=== PATIENT | male | born 1960 | race Caucasian/White ===

== ENCOUNTER → 2016-03-25 | Outpatient (CLI) | payer OTHER ==
[~2016-03-25] MED LIST: ACET-749 PO; BND25 PO; CITRATE OF MAGNESIA; CLOT10TR2 MT; DIPH1TAB PO; DIPH50TA10 PO; DRGTP100 TOP; DULO-24 PO; DULO60CA44 PO; EPOE10003 INJ; EPOE10003 SC; FERR1TAB13 PO; FERR325T5 PO; FLV1 PO; FNTTP50 TD; FOLI1TAB7 PO; FRRS300 PO; HYDR1LOT6 TOP; IBUP-1459 PO; LACT10SO17 PO; LIDO2SOL19 MT; LIDO2SOL19 TOP; LITH150C PO; LITH150C6 PO; LORA-741 PO; MAGIC MOUTH WASH PO; MIRT30TA2 PO; MIRT45TA PO; MIRT45TA3 PO; MORP30TA PO; NEOMOIN76 TOP; NSPO TOP; NUTR-706 PO; NUTR-977 PO; OMEP20TA PO; OMEP40CA PO; ONDA4TAB46 PO; OXYC-106 PO; PRLSR20 PO; RIFA550T2 PO; RISP1TAB3 PO; RISP3TAB11 PO; SERT-234 PO; TRAM-10 PO; [UNRECOGNIZED DRUG - CODE] PO; [UNRECOGNIZED DRUG - CODE] TOP
--- NOTE | 2016-03-26 18:58 | DIAGNOSTIC IMAGING REPORT ---
PET/CT CLINICAL HISTORY: Head and neck cancer. PET/CT for initial staging. TECHNIQUE: A PET/CT was performed from the skull base through the upper thighs following intravenous injection of 13.98 mCi of F 18 FDG IV. The injection was performed at 8:04 AM on March 25, 2016 and imaging began at 9:28 AM on March 25, 2016. Unenhanced CT was performed for attenuation correction purposes and anatomic localization. CT DOSE: 144.62 mGycm COMPARISON STUDY: MRI of the neck and head February 16, 2016. FINDINGS: Head and neck: A large right tonsillar mass centered within the palatine tonsils is noted on the unenhanced images. Exact measurements are difficult to obtain but this mass measures approximately 4.5 x 3 cm and has increased in size since MRI February 16, 2016. This has marked FDG uptake within SUV max of 10.3. This mass extends into the parapharyngeal soft tissues. A 1.6 cm right level 5 lymph node shown on image 55 has moderate FDG uptake within SUV max of 2.7. There is mild FDG uptake within a nonenlarged right level 2 lymph node shown on image 61. This node measures 7 mm in size and has an SUV max of 1.2. There is mild FDG uptake within a mildly enlarged right level 1 lymph node shown on image 67. This node measures 1.7 x 0.7 cm and has an SUV max of 1. There is mild FDG uptake within a nonenlarged right level 3 lymph node shown on image 77 with an SUV max of 1.4. There is minimal FDG uptake within several nonenlarged left-sided cervical lymph nodes. No enlarged left-sided cervical lymph nodes are identified. Chest: No suspicious FDG uptake is identified within the chest. No thoracic lymphadenopathy is present. The heart is mildly enlarged. No suspicious pulmonary nodules are present. Abdomen and Pelvis: No suspicious FDG uptake is identified within the abdomen or pelvis. There is no abdominal or pelvic lymphadenopathy. The liver is cirrhotic. The sensitivity for detection of hepatic lesions is diminished on this unenhanced exam. The spleen is moderately enlarged. There are multiple abdominal varices. There is a small amount of ascites. There are small gallstones within the gallbladder. There is colonic diverticulosis without evidence for acute diverticulitis. Musculoskeletal: No suspicious skeletal lesions are identified. IMPRESSION: 1. Marked FDG uptake within the right tonsillar mass consistent with head and neck primary. This mass has increased in size since MRI of February 16, 2016 although measurements are difficult to obtain on this unenhanced exam. 1.6 cm right upper level 5 FDG avid lymph node represents bowen spread of disease. Mild FDG uptake within nonenlarged right level 1, 2 and 3 lymph nodes is also suspicious for bowen spread of disease, as described above. 2. Minimal FDG uptake within several nonenlarged left-sided cervical lymph nodes. No convincing evidence for contralateral bowen spread of disease. No distant FDG avid metastases. 3. Cirrhosis with manifestations of portal hypertension including splenomegaly and varices formation with small amount of ascites. Electronically signed by: Mateo Chen M.D. 03/26/2016 6:56 PM Dictated Date/Time: 03/25/2016 10:59 AM
== END ==
LOC: C.PET 07:30
PROVIDERS: ATTEND Family Medicine
DX: C11.9 Malignant neoplasm of nasopharynx, unspecified (principal); D63.8 Anemia in other chronic diseases classified elsewhere; F10.20 Alcohol dependence, uncomplicated; F31.9 Bipolar disorder, unspecified; J35.9 Chronic disease of tonsils and adenoids, unspecified; K62.5 Hemorrhage of anus and rectum; M54.5 Low back pain; Z79.899 Other long term (current) drug therapy

== ENCOUNTER 2016-04-15 22:46 | Inpatient (IN) | payer OTHER ==
[~2016-04-15] VITALS: Ht 182.9 cm; Wt 81.1 kg
[~2016-04-15 22:46] MED LIST changes: -BND25 PO; -CITRATE OF MAGNESIA; -CLOT10TR2 MT; -DIPH50TA10 PO; -DRGTP100 TOP; -DULO-24 PO; -DULO60CA44 PO; -EPOE10003 INJ; -EPOE10003 SC; -FERR1TAB13 PO; -FERR325T5 PO; -FLV1 PO; -FNTTP50 TD; -FOLI1TAB7 PO; -FRRS300 PO; -HYDR1LOT6 TOP; -LACT10SO17 PO; -LIDO2SOL19 MT; -LIDO2SOL19 TOP; -LITH150C PO; -LORA-741 PO; -MAGIC MOUTH WASH PO; -MIRT30TA2 PO; -MIRT45TA PO; -MIRT45TA3 PO; -MORP30TA PO; -NEOMOIN76 TOP; -NSPO TOP; -NUTR-706 PO; -NUTR-977 PO; -OMEP20TA PO; -ONDA4TAB46 PO; -OXYC-106 PO; -PRLSR20 PO; -RIFA550T2 PO; -RISP1TAB3 PO; -[UNRECOGNIZED DRUG - CODE] PO; -[UNRECOGNIZED DRUG - CODE] TOP
--- NOTE | 2016-04-15 23:05 | EMERGENCY ROOM VISIT NOTE ---
History Report prepared by Nasir: Andie Cheema Under the Supervision of: Dr. Arturo Zavala M.D. 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 HPI is limited due to AMS. The patient's network security officer states that the patient has had several falls over the past week which caused him to have a cut on his face. The patient admits to having throat pain currently but denies any chest pain or abdominal pain. The patient states that he is currently receiving chemotherapy for his throat cancer. Source of History: patient, other (network security officer) History Limited By: AMS Onset: one week MECHANICAL ENGINEERING TECHNOLOGIST Position: other (global) Timing: other (recurrent) Associated Symptoms: No abdominal pain, No chest pain Note: Associated symptoms: throat pain. Review of Systems See HPI for pertinent positives & negatives. A total of 10 systems reviewed and were otherwise negative. Past Medical & Surgical Medical Problems: (1) Acute kidney failure (2) Altered mental status (3) Altered mental status (4) Mouth cancer (5) Oral cancer Family History Patient reports no known family medical history. Social History Smoking Status: Unknown if Ever Smoked Marital Status: single Housing Status: other (alf) Occupation Status: other (alf) Current/Historical Medications Scheduled Diphenhydramine Hcl (Sleep) (Diphenhydramine Hcl), 100 MG PO HS Duloxetine HCl (Cymbalta), 60 MG PO DAILY Enteral Nutrition Formula (Ensure Plus Vanilla), 1 CAN PO TID [place] Carbonate ([place] Carbonate), 150 MG PO BID [place] Carbonate ([place] Carbonate), 300 MG PO HS Omeprazole Magnesium (Prilosec), 2 GM PO BID Risperidone (Risperdal), 3 MG PO HS Scheduled PRN Acetaminophen/Codeine (Tylenol W/Codeine #3), 2 TAB PO Q6 PRN for Pain [Magic Mouth Wash], 10 ML PO QID PRN for UNDECIDED Allergies Coded Allergies: Morphine and Related (Verified Allergy, Unknown, UNKNOWN, 04/16/16) Physical Exam Vital Signs Date Time Temp Pulse Resp B/P Pulse Ox O2 Delivery O2 Flow Rate FiO2 04/16/16 01:28 111/64 98 Nasal Cannula 2.0 04/16/16 01:16 86 13 04/16/16 00:58 108/65 04/16/16 00:46 91 16 04/16/16 00:28 101/62 04/16/16 00:22 103 18 112/61 100 Room Air 04/16/16 00:16 118 20 04/16/16 00:07 112/61 04/15/16 23:46 99 11 04/15/16 23:16 96 15 04/15/16 23:01 105 04/15/16 22:51 94 Nasal Cannula 2.0 04/15/16 22:51 37.0 96 20 92/58 89 Room Air 04/15/16 22:48 92/58 Physical Exam GENERAL: Patient is nonverbal in minimal distress, confused appearing. HEENT: No acute trauma, normocephalic atraumatic, mucous membranes moist, no nasal congestion, no scleral icterus. Mild jaundice conjunctiva. Healing laceration of left eyebrow. NECK: No stridor, no adenopathy, no meningismus, trachea is midline. LUNGS: Crackles bilaterally in lower lung field. HEART: Regular rate and rhythm. No murmurs, rubs, gallops appreciated. ABDOMEN: Soft, nontender, bowel sounds positive, no masses appreciated, no peritonitis. BACK: No midline tenderness, no CVA tenderness EXTREMITIES: Normal motion all extremities, no cyanosis, no edema. NEUROLOGIC: Mildly confused, answers periodically yes to questions. He has periodic jerking movements and tremors. no acute motor or sensory deficits, no focal weakness, cranial nerves grossly intact. SKIN: No rash, no jaundice, no diaphoresis. Medical Decision & Procedures ER Provider Diagnostic Interpretation: X ray results are stated below per my interpretation: Chest: 1 view: No infiltrate, no effusion, normal cardiac border. CT results as stated below per interpretation by me and the radiologist: CT results as stated below per interpretation by me and the radiologist: Preliminary Findings Only-- See Final Report for Complete Findings CT HEAD: No acute intracranial hemorrhage. No evidence of intracranial mas, extra-axial fluid collection, or hydrocephalus. Global cerebral volume loss is prominent for patient's age. Mild mucosal thickening and inferior aspect of right maxillary sinus. Radiologist: Arturo Will MD Study ready at 0011 and initial results transmitted at 0019 Laboratory Results Test 04/15/16 23:34 04/15/16 23:37 04/16/16 00:00 04/16/16 00:17 RDW Standard Deviation 53.3 fL (36.4-46.3) RDW Coefficient of Variation 16.7 % (11.5-14.5) White Blood Count 6.06 K/uL (4.8-10.8) Red Blood Count 3.41 M/uL (4.7-6.1) Hemoglobin 9.9 g/dL (14.0-18.0) Hematocrit 29.5 % (42-52) Mean Corpuscular Volume 86.5 fL (80-100) Mean Corpuscular Hemoglobin 29.0 pg (25-34) Mean Corpuscular Hemoglobin Concent 33.6 g/dl (32-36) Platelet Count 70 K/uL (130-400) Mean Platelet Volume 11.0 fL (7.4-10.4) Neutrophils (%) (Auto) 86.4 % Lymphocytes (%) (Auto) 10.1 % Monocytes (%) (Auto) 2.5 % Eosinophils (%) (Auto) 0.3 % Basophils (%) (Auto) 0.2 % Neutrophils # (Auto) 5.24 K/uL (1.4-6.5) Lymphocytes # (Auto) 0.61 K/uL (1.2-3.4) Monocytes # (Auto) 0.15 K/uL (0.11-0.59) Eosinophils # (Auto) 0.02 K/uL (0-0.5) Basophils # (Auto) 0.01 K/uL (0-0.2) Immature Granulocyte % (Auto) 0.5 % Immature Granulocyte # (Auto) 0.03 K/uL (0.00-0.02) Platelet Estimate DECREASED Tear Drop Cells 1+ Ovalocytes 1+ Echinocytes 1+ Prothrombin Time 12.5 SECONDS (9.0-12.0) Prothromb Time International Ratio 1.2 (0.9-1.1) Activated Partial Thromboplast Time 27.1 SECONDS (21.0-31.0) Partial Thromboplastin Ratio 1.0 Direct Bilirubin 1.8 mg/dl (0-0.2) Ammonia 24.0 umol/L (11-32) Troponin I < 0.015 ng/ml (0-0.045) Bedside Lactic Acid Venous 1.23 mmol/L (0.90-1.70) Influenza Type A Antigen Neg for Influ A (NEG) Influenza Type B Antigen Neg for Influ B (NEG) Urine Color DK YELLOW Urine Appearance CLOUDY (CLEAR) Urine pH 5.0 (4.5-7.5) Urine Specific [place] 1.011 (1.000-1.030) Urine Protein TRACE (NEG) Urine Glucose (UA) NEG (NEG) Urine Ketones TRACE (NEG) Urine Occult Blood NEG (NEG) Urine Nitrite NEG (NEG) Urine Bilirubin NEG (NEG) Urine Urobilinogen NEG (NEG) Urine Leukocyte Esterase NEG (NEG) Urine WBC (Auto) 1-5 /hpf (0-5) Urine RBC (Auto) 5-10 /hpf (0-4) Urine Hyaline Casts (Auto) 1-5 /lpf (0-5) Urine Epithelial Cells (Auto) 10-20 /lpf (0-5) Urine Bacteria (Auto) NEG (NEG) Laboratory results as reviewed by me. Medications Administered Medications (Trade) Dose Ordered Sig/Ivan Route Start Time Stop Time Status Last Admin Dose Admin Sodium Chloride (Nss 500ml) 500 ml @ 999 mls/hr Q31M STAT IV 04/16/16 00:21 04/16/16 00:51 DC 04/16/16 00:30 999 MLS/HR ECG Indication: other (fall ) Rate (beats per minute): 93 Rhythm: normal sinus Findings: no acute ischemic change, no ectopy ED Course 2258: The patient was evaluated in room A11B. A complete history and physical exam was performed. 0017:I discussed the case with Dr. Crook [facility] Hospitalist. He agreed to evaluate the patient for further management and care. 0021: Ordered Sodium Chloride 500 ml @ 999 mls/hr. Medical Decision Differential: Toxicological, Infectious, Stroke, SAH, Trauma, Electrolyte Abnormality, Hypoglycemia, Alcohol Intoxication, Drug Intoxication, Cardiac Abnormality, Sepsis, Meningitis/Encephalitis, Trauma, Excited Delirium, Serotonin Syndrome, Psychiatric, amongst other pathologies entertained. 55 yr old male arrives dehydrated mildly confused and hypotensive. Fluids with improvement in BP. No evidence of overt sepsis. He is in acute renal failure suspect secondary to lack of PO intake with cancer. Bili has been slowly increasing as well though no significant TTP on exam at this time. Ammonia OK though would suspect metabolic encephalopathy from renal failure. Does not examine like meningitis. CT head is negative. Unlikely drug/etoh related. Will bring in for further work-up and evaluation. Consults Time Called: 14 Consulting Physician: Dr. Armaan MALDONADO Hospitalist Returned Call: 16 I discussed the case with Dr. Armaan MALDONADO Hospitalist. He agreed to evaluate the patient for further management and care. Impression Primary Impression: Acute renal failure Additional Impressions: Metabolic encephalopathy Dehydration Scribe Attestation The scribe's documentation has been prepared under my direction and personally reviewed by me in its entirety. I confirm that the note above accurately reflects all work, treatment, procedures, and medical decision making performed by me. Departure Information Dispostion Being Evaluated By Hospitalist Referrals Giovanny VILLA (PCP) Problem Qualifiers Primary Impression: Acute renal failure Acute renal failure type: unspecified Qualified Codes: N17.9 - Acute kidney failure, unspecified
[2016-04-15 23:41] LABS: HEMATOCRIT 29.5 % (42-52); MEAN CELL VOLUME 86.5 fL (80-100); MEAN CORPUSCULAR HGB CONC 33.6 g/dl (32-36); RED BLOOD COUNT 3.41 M/uL (4.7-6.1); WHITE BLOOD COUNT 6.06 K/uL (4.8-10.8)
[2016-04-16] VITALS (7 sets, daily range): BP systolic 110–137; BP diastolic 65–75; PULSE 98–130; TEMP 36.6–37.1; O2SAT 92–96; BMI 24.7; BMI 24.0
[2016-04-16] LABS: ALT/SGPT 14 U/L (12-78); AST/SGOT 17 U/L (15-37); BLOOD UREA NITROGEN 60 mg/dl (7-18); BUN/CREATININE RATIO 15.5 (10-20); CALCIUM 10.3 mg/dl (8.5-10.1); CARBON DIOXIDE 29 mmol/L (21-32); CHLORIDE 102 mmol/L (98-107); GLUCOSE 77 mg/dl (70-99); POTASSIUM 3.5 mmol/L (3.5-5.1); SODIUM 140 mmol/L (136-145)
[2016-04-16 00:04] LABS: ALKALINE PHOSPHATASE 96 U/L (45-117)
[2016-04-16 00:11] LABS: INR 1.2 (0.9-1.1); PROTHROMBIN TIME (PATIENT) 12.5 SECONDS (9.0-12.0)
[2016-04-16] MEDS ORDERED: LITH150C PO (00:21)
[2016-04-16] MEDS ORDERED: SODIUM CHLORIDE 0.9% 500ML 500 ML IV STA (00:21)
[2016-04-16] MEDS ORDERED: DULO-24 PO (00:23)
[2016-04-16] MEDS ORDERED: DIPH50TA10 PO (00:24)
[2016-04-16] MEDS ORDERED: [UNRECOGNIZED DRUG - CODE] PO (00:26)
[2016-04-16 00:27] LABS: BASO % 0.2 %; BASO ABS # 0.01 K/uL (0-0.2); COMPLETE YES; ECHINOCYTES 1+; EOS % 0.3 %; IG% 0.5 %; LYMPH % 10.1 %; LYMPH ABS # 0.61 K/uL (1.2-3.4); MONO % 2.5 %; NEUT % 86.4 %; OVALOCYTES 1+; PLATELET COUNT 70 K/uL (130-400); PLT ESTIMATE DECREASED; TEAR DROP CELLS 1+
[2016-04-16] MEDS ORDERED: ACET-749 PO (00:27)
[2016-04-16] MEDS ORDERED: NUTR-977 PO (00:27)
[2016-04-16] MEDS ORDERED: MAGIC MOUTH WASH PO (00:29)
[2016-04-16 00:52] LABS: URINE APPEARANCE CLOUDY (CLEAR); URINE COLOR DK YELLOW; URINE NITRITE NEG (NEG); URINE SPECIFIC GRAVITY 1.011 (1.000-1.030); UROBILINOGEN NEG (NEG); ZZURINE CULT IF INDIC CATH NO
[2016-04-16 01:15] LABS: MANUAL MICROSCOPIC REQUIRED? NO; REVIEW REQ? NO; URINE BILIRUBIN NEG (NEG)
[2016-04-16] MEDS ORDERED: ONDANSETRON INJ 2 MG/ML 2 ML VIAL IV PRN (01:30)
[2016-04-16] MEDS ORDERED: MAGNESIUM HYDROXIDE SUSP 30 ML UDC PO PRN (01:30)
[2016-04-16] MEDS ORDERED: ALUMINUM/MAGNESIUM/SIMETH (MAALOX MAX) 30 ML UDC PO PRN (01:30)
[2016-04-16] MEDS ORDERED: POLYETHYLENE (MIRALAX) 17 GM PACK PO PRN (01:30)
--- NOTE | 2016-04-16 01:59 | History and Physical ---
History & Physical Date & Time of Service: Apr 16, 2016 at 01:34 Chief Complaint: Fall, Hypotension, Ams Primary Care Physician: Giovanny VILLA History of Present Illness Source: patient, other (guards) Mr. Leiva presents today to the emergency department for altered mental status. He is unable to provide a cogent history. He is accompanied by to the guards from [facility] Giovanny. Patient is unable to provide a description of his symptoms at this time. Presently denies being in any pain. He cannot specify whether is he is had any specific symptoms that led him to be brought in to the emergency room. Records that accompany the patient noted that he had 3 falls within the past week, has had altered mental status, has been nonverbal, and has had low blood pressure. Blood sugar was checked at the facility was 88. 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 Regarding his current mental status, the guards were told prior to arrival that this is apparently close to the patient's baseline. The concern of the facility was primarily that he had numerous falls in the past week and wanted him evaluated for this. Past Medical/Surgical History Obtained from records that accompanied the patient on arrival to the emergency department: - GERD - Throat cancer - Anemia - Psychiatric medical conditions otherwise unspecified as deduced from the patient's list of medications Family History Patient reports no known family medical history. Cannot not be obtained from the patient given his current mental status Social History Smoking Status: Unknown if Ever Smoked Smokeless Tobacco Use: Unknown Alcohol Use: unknown Drug Use: other (unknown) Marital Status: single Housing status: other ([facility]) Occupational Status: other (senior living) Allergies Coded Allergies: Morphine and Related (Verified Allergy, Unknown, UNKNOWN, 04/16/16) Home Medications Scheduled Diphenhydramine Hcl (Sleep) (Diphenhydramine Hcl), 100 MG PO HS Duloxetine HCl (Cymbalta), 60 MG PO DAILY Enteral Nutrition Formula (Ensure Plus Vanilla), 1 CAN PO TID [place] Carbonate ([place] Carbonate), 150 MG PO BID [place] Carbonate ([place] Carbonate), 300 MG PO HS Omeprazole Magnesium (Prilosec), 2 GM PO BID Risperidone (Risperdal), 3 MG PO HS Scheduled PRN Acetaminophen/Codeine (Tylenol W/Codeine #3), 2 TAB PO Q6 PRN for Pain [Magic Mouth Wash], 10 ML PO QID PRN for UNDECIDED Review of Systems A complete review of systems could not be obtained given the patient's altered mental status and nonverbal state Physical Exam Vital Signs Date Time Temp Pulse Resp B/P Pulse Ox O2 Delivery O2 Flow Rate FiO2 04/16/16 00:22 103 18 112/61 100 Room Air 04/15/16 23:01 105 04/15/16 22:51 94 Nasal Cannula 2.0 04/15/16 22:51 37.0 96 20 92/58 89 Room Air General Appearance: WD/WN, no apparent distress Head: normocephalic, atraumatic Eyes: normal inspection, PERRL, Patient does not follow diffuse to follow finger with his eyes ENT: Tympanic membranes are intact and normal bilaterally oral mucosa appears dry Masses noted at the posterior pharynx. No evidence of bleeding. Patient did not cooperate and open mouth fully for thorough assessment. Neck: supple, no adenopathy, no JVD Respiratory/Chest: chest non-tender, lungs clear, normal breath sounds, no respiratory distress Cardiovascular: regular rate, rhythm, no edema, no gallop, no murmur Abdomen/GI: normal bowel sounds, non tender, soft Back: normal inspection, no CVA tenderness Extremities/Musculoskeletal: normal inspection, no calf tenderness, no pedal edema Neurologic/Psych: Somnolent, Rousable, alert person but not place and time Cannot sustain attention, cannot follow commands required for complete peripheral neurological examination Skin: normal color, warm/dry, no rash Lymphatic: no adenopathy Diagnostics Laboratory Results Results Past 24 Hours Test 04/15/16 23:34 04/15/16 23:37 04/16/16 00:17 04/16/16 01:29 Range/Units White Blood Count 6.06 4.8-10.8 K/uL Red Blood Count 3.41 4.7-6.1 M/uL Hemoglobin 9.9 14.0-18.0 g/dL Hematocrit 29.5 42-52 % Mean Corpuscular Volume 86.5 80-100 fL Mean Corpuscular Hemoglobin 29.0 25-34 pg Mean Corpuscular Hemoglobin Concent 33.6 32-36 g/dl Platelet Count 70 130-400 K/uL Mean Platelet Volume 11.0 7.4-10.4 fL Neutrophils (%) (Auto) 86.4 % Lymphocytes (%) (Auto) 10.1 % Monocytes (%) (Auto) 2.5 % Eosinophils (%) (Auto) 0.3 % Basophils (%) (Auto) 0.2 % Neutrophils # (Auto) 5.24 1.4-6.5 K/uL Lymphocytes # (Auto) 0.61 1.2-3.4 K/uL Monocytes # (Auto) 0.15 0.11-0.59 K/uL Eosinophils # (Auto) 0.02 0-0.5 K/uL Basophils # (Auto) 0.01 0-0.2 K/uL RDW Standard Deviation 53.3 36.4-46.3 fL RDW Coefficient of Variation 16.7 11.5-14.5 % Immature Granulocyte % (Auto) 0.5 % Immature Granulocyte # (Auto) 0.03 0.00-0.02 K/uL Platelet Estimate DECREASED Tear Drop Cells 1+ Ovalocytes 1+ Echinocytes 1+ Prothrombin Time 12.5 9.0-12.0 SECONDS Prothromb Time International Ratio 1.2 0.9-1.1 Activated Partial Thromboplast Time 27.1 21.0-31.0 SECONDS Partial Thromboplastin Ratio 1.0 Sodium Level 140 136-145 mmol/L Potassium Level 3.5 3.5-5.1 mmol/L Chloride Level 102 98-107 mmol/L Carbon Dioxide Level 29 21-32 mmol/L Anion Gap 9.0 3-11 mmol/L Blood Urea Nitrogen 60 7-18 mg/dl Creatinine 3.90 0.60-1.40 mg/dl Estimated GFR () 18.7 Estimated GFR (Non- 16.2 BUN/Creatinine Ratio 15.5 10-20 Random Glucose 77 70-99 mg/dl Calcium Level 10.3 8.5-10.1 mg/dl Total Bilirubin 2.7 0.2-1 mg/dl Direct Bilirubin 1.8 0-0.2 mg/dl Aspartate Amino Transf (AST/SGOT) 17 15-37 U/L Alanine Aminotransferase (ALT/SGPT) 14 12-78 U/L Alkaline Phosphatase 96 45-117 U/L Ammonia 24.0 11-32 umol/L Troponin I < 0.015 0-0.045 ng/ml Total Protein 6.3 6.4-8.2 gm/dl Albumin 3.1 3.4-5.0 gm/dl [place] Level 1.9 0.6-1.2 mMOL/L Bedside Lactic Acid Venous 1.23 0.90-1.70 mmol/L Urine Color DK YELLOW Urine Appearance CLOUDY CLEAR Urine pH 5.0 4.5-7.5 Urine Specific [place] 1.011 1.000-1.030 Urine Protein TRACE NEG Urine Glucose (UA) NEG NEG Urine Ketones TRACE NEG Urine Occult Blood NEG NEG Urine Nitrite NEG NEG Urine Bilirubin NEG NEG Urine Urobilinogen NEG NEG Urine Leukocyte Esterase NEG NEG Urine WBC (Auto) 1-5 0-5 /hpf Urine RBC (Auto) 5-10 0-4 /hpf Urine Hyaline Casts (Auto) 1-5 0-5 /lpf Urine Epithelial Cells (Auto) 10-20 0-5 /lpf Urine Bacteria (Auto) NEG NEG Microbiology Results 04/15/16 Blood Culture, Received Pending 04/15/16 Blood Culture, Received Pending Diagnostic Radiology CT brain noncontrast, interpreted by stat rad: No acute trauma or bleed noted Report does not indicate if there is any evidence of new metastatic disease Global volume loss, prominent for age No other acute process CXR normal Impression Assessment and Plan Documented By: Reza Crook 55 showed male with right tonsilar squamous cell carcinoma stage III stage Stephanie, and history of unspecified psychiatric conditions presenting with increasing falls. Regarding his mentation, the history with suggest that he is near his baseline, however the falls appear to be a new phenomenon. The CT of his brain does not show any acute process, though with his history of ongoing malignancy, we should consider whether he has new metastatic disease occurrence. Currently he is hematologically stable, but was noted to be slightly tachycardic on arrival. He has an elevated creatinine of 3.9, which is new for him as the creatinine from 1 month prior was 0.8. His altered mental status and able to her dysfunction may stem from uremia. Our plan for him at this time as follows Acute metabolic encephalopathy - Cr 3.9; patient at 500 mils normal saline bolus in the ED; I will order another 1 L now; and continue him on maintenance fluids overnight 125 ml/hr We'll repeat a creatinine with morning labs - No obvious foci of infection at this time; WBC 6 on arrival; he has been afebrile in the ED Chest x-ray looks clear; final report pending No evidence of urinary tract infection Flu swab rule-out influenza - Serum ammonia is within normal limits - We will check the following additional labs: TSH, B12, folate - Patient to be kept nothing by mouth at this time; place on aspiration precautions; medicine should be given either through IV or by suspensions as tolerated. Elevated serum lithium level - Measured at 1.9 - Hold home dose of lithium - Elevation likely secondary to impaired clinic clearance due to JAS - Follow daily lithium level; if levels do not improve with IV rehydration, would consider nephrology referral for additional recommendations Ambulatory Dysfunction - B12 and Folate levels are pending - OT and PT orders and placed Squamous cell cancer of the right tonsil - CT scan was negative for metastatic disease - If patient does not improve with supportive measures and rehydration would consider following up with an MRI to rule out metastases - Patient has Percocet was a medication list though I would be concerned about his ability to tolerate pills right now - Patient states he is not in any pain right now. As such we'll hold off on ordering pain medication. He has a noted allergy to morphine. An IV nonsteroidal such as Toradol would not be tolerated at this time given his acute kidney injury. Psychiatric conditions otherwise unspecified - Re-start duloxetine 20 mg capsule as mentation status improves - Restart Seroquel as mentation status improves and can tolerate PO - Hold [place] due to elevation DVT prophylaxis - Heparin 5000 units subcutaneous twice a day CODE STATUS - Patient has been made a level I code as he is unable to verbalize at this time which CODE STATUS he desires Disposition - [facility] - OT and PT orders are placed Resident Physician Supervision Note: I was present with [Name of resident] during the history and exam. I discussed the case with the resident and agree with the findings and plan as documented in the note. Any exceptions or clarifications are listed here: Pt seen/examined - presents from local correctional facility with deteriorating mental status - currently receiving chemo for tonsillar CA He is unable to contribute to the HPI ARF noted on labs Disoriented S1.2 reg CTAB - exam limited Tremor/twitching noted - cannot comply with neuro exam P: IVF and supportive care Reassess AM after uremia improves Consider MRI brain if no improvement to r/o mets Disposition should be discussed/clarified in AM Level of Care Med/Surg Resuscitation Status FULL RESUSCITATION VTE Prophylaxis VTE Risk Assessment Done? Y/N: Yes Risk Level: Moderate
[2016-04-16] MEDS ORDERED: IV FLUIDS COMPLETED PRN (02:00)
[2016-04-16] MEDS ORDERED: KETOROLAC TROMETHAMINE 30 MG/ML VIAL IV PRN (02:00)
[2016-04-16] MEDS ORDERED: MAGIC MOUTHWASH PO PRN (02:00)
[2016-04-16] MEDS: SODIUM CHLORIDE 0.9% 1000ML 1,000 ML IV SCH ×2 (02:45→12:22)
[2016-04-16] MEDS ORDERED: DEXAMETHASONE CONC SOLN 3.75 MG, NYSTATIN SUSP 30 ML, DiphenhydrAMINE HCL SYRUP 300 MG,... PO PRN ×5 (02:45)
--- NOTE | 2016-04-16 06:48 | DIAGNOSTIC IMAGING REPORT ---
CHEST ONE VIEW PORTABLE CLINICAL HISTORY: AMS dyspnea COMPARISON STUDY: No previous studies for comparison. FINDINGS: The bones soft tissues and hemidiaphragms are normal. The cardiomediastinal silhouette is normal. The lungs are clear. The pulmonary vasculature is normal. IMPRESSION: Negative chest. Electronically signed by: Jered Vazquez M.D. 04/16/2016 6:46 AM Dictated Date/Time: 04/16/2016 6:46 AM
--- NOTE | 2016-04-16 06:59 | DIAGNOSTIC IMAGING REPORT ---
HEAD CT NONCONTRAST CT DOSE: 614.27 mGy.cm HISTORY: Mental status change AMS TECHNIQUE: Multiaxial CT images of the head were performed without the use of intravenous contrast. Comparison: None. Findings: The paranasal sinuses and mastoid air cells are clear. The calvarium and skull base are intact. The ventricles and sulci are within normal limits. There is no mass, hematoma, midline shift, or acute infarct. Mild cerebral atrophy Impression: No acute intracranial abnormality. Mild atrophy Electronically signed by: Jered Vazquez M.D. 04/16/2016 6:57 AM Dictated Date/Time: 04/16/2016 6:57 AM
[2016-04-16 07:20] LABS: HEMATOCRIT 28.3 % (42-52); MEAN CELL VOLUME 86.5 fL (80-100); MEAN CORPUSCULAR HEMOGLOBIN 28.4 pg (25-34); MEAN CORPUSCULAR HGB CONC 32.9 g/dl (32-36); RED BLOOD COUNT 3.27 M/uL (4.7-6.1); WHITE BLOOD COUNT 5.14 K/uL (4.8-10.8)
[2016-04-16 07:46] LABS: BASO % 0.2 %; BASO ABS # 0.01 K/uL (0-0.2); COMPLETE YES; EOS % 0.4 %; IG% 0.6 %; LYMPH % 11.7 %; MEAN PLATELET VOLUME 10.4 fL (7.4-10.4); MONO % 4.5 %; NEUT % 82.6 %; PLATELET COUNT 57 K/uL (130-400)
[2016-04-16 07:48] LABS: BUN/CREATININE RATIO 18.1 (10-20); CALCIUM 9.5 mg/dl (8.5-10.1); CREATININE 3.1 mg/dl (0.60-1.40); POTASSIUM 3.6 mmol/L (3.5-5.1)
[2016-04-16 07:53] LABS: ANISOCYTOSIS PRESENT; LYMPH ABS # 0.45 K/uL (1.2-3.4); LYMPHOCYTE % 8.8 %; NEUTROPHILS % 88.5 %; OVALOCYTES 1+; TEAR DROP CELLS 1+
[2016-04-16 07:59] LABS: ALB/GLOB RATIO 0.9 (0.9-2); THYROID STIMULATING HORMONE 1.18 uIu/ml (0.300-4.500)
--- NOTE | 2016-04-16 08:34 | Progress Note ---
Subjective Date of Service: Apr 16, 2016. Subjective Pt evaluation today including: conversation w/ patient, physical exam, chart review, lab review, review of studies, review of inpatient medication list Problem List Medical Problems: (1) Acute renal failure Status: Acute (2) Dehydration Status: Acute (3) Metabolic encephalopathy Status: Acute Review of Systems Unable to obtain much due to alteration in mental status. patient reports pain throughout his body, nothing specific. No chest pain, no breathing problems, no abd pain when asked specifically. Voided overnight, dark/concentrated urine, not quantified. Medications Current Inpatient Medications Medications (Trade) Dose Ordered Sig/Ivan Route Start Time Stop Time Status Last Admin Dose Admin Acetaminophen (Tylenol Tab) 650 mg Q4H PRN PO 04/16/16 01:30 05/16/16 01:29 Al Hydrox/Mg Hydrox/Simethicone (Maalox Max Susp) 15 ml Q4H PRN PO 04/16/16 01:30 05/16/16 01:29 Magnesium Hydroxide (Milk Of Magnesia Susp) 30 ml Q6H PRN PO 04/16/16 01:30 05/16/16 01:29 Polyethylene (Miralax Powder Packet) 17 gm DAILY PRN PO 04/16/16 01:30 05/16/16 01:29 Ondansetron HCl (Zofran Inj) 4 mg Q6H PRN IV 04/16/16 01:30 05/16/16 01:29 Heparin Sodium (Porcine) (Heparin Sq 5000 Unit/0.5ml) 5,000 unit Q12H SQ 04/16/16 09:00 05/16/16 08:59 Miscellaneous 1 ea 1 ea PRN PRN N/A 04/16/16 02:00 04/16/17 01:59 Sodium Chloride 1,000 ml @ 125 mls/hr Q8H IV 04/16/16 02:45 05/16/16 02:44 04/16/16 02:45 125 MLS/HR Dexamethasone/ Nystatin/ Diphenhydramine HCl/Sucrose/ Microcrystalline Cellulose/Barcode (Decadron Conc Soln/Mycostatin Susp/Benadryl Syrup/Ora-Sweet Syrup/Ora-Plus Susp. Vehicle) QID PRN PO 04/16/16 02:45 05/16/16 02:44 Objective Vital Signs Date Time Temp Pulse Resp B/P Pulse Ox O2 Delivery O2 Flow Rate FiO2 04/16/16 07:29 36.7 108 20 137/65 95 Room Air 04/16/16 03:01 36.9 98 18 125/75 95 Room Air 04/16/16 02:07 37.0 90 13 136/78 98 04/16/16 01:28 111/64 98 Nasal Cannula 2.0 04/16/16 01:16 86 13 04/16/16 00:58 108/65 04/16/16 00:46 91 16 04/16/16 00:28 101/62 04/16/16 00:22 103 18 112/61 100 Room Air 04/16/16 00:16 118 20 04/16/16 00:07 112/61 04/15/16 23:46 99 11 04/15/16 23:16 96 15 04/15/16 23:01 105 04/15/16 22:51 94 Nasal Cannula 2.0 04/15/16 22:51 37.0 96 20 92/58 89 Room Air 04/15/16 22:48 92/58 Physical Exam Comments: NAD, oriented only to self, dry mucosa EOMI, perrl, no facial drooping but unable to cooperate for a complete neuro exam S1 S2 RRR, no murmurs appreciated CTAB anteriorly, not fully able to cooperate for full resp exam, however, no wheezing, no rhonchi, no rales appreciated Abd soft, nt/nd +BS no organomegaly palpated, no suprapubic tenderness, no cva tenderness no LE edema with good DP pulses, no cyanosis +asterixis Laboratory Results Last 24 Hours Test 04/15/16 23:34 04/15/16 23:37 04/16/16 00:00 04/16/16 00:17 White Blood Count 6.06 K/uL Red Blood Count 3.41 M/uL Hemoglobin 9.9 g/dL Hematocrit 29.5 % Mean Corpuscular Volume 86.5 fL Mean Corpuscular Hemoglobin 29.0 pg Mean Corpuscular Hemoglobin Concent 33.6 g/dl Platelet Count 70 K/uL Mean Platelet Volume 11.0 fL Neutrophils (%) (Auto) 86.4 % Lymphocytes (%) (Auto) 10.1 % Monocytes (%) (Auto) 2.5 % Eosinophils (%) (Auto) 0.3 % Basophils (%) (Auto) 0.2 % Neutrophils # (Auto) 5.24 K/uL Lymphocytes # (Auto) 0.61 K/uL Monocytes # (Auto) 0.15 K/uL Eosinophils # (Auto) 0.02 K/uL Basophils # (Auto) 0.01 K/uL RDW Standard Deviation 53.3 fL RDW Coefficient of Variation 16.7 % Immature Granulocyte % (Auto) 0.5 % Immature Granulocyte # (Auto) 0.03 K/uL Platelet Estimate DECREASED Tear Drop Cells 1+ Ovalocytes 1+ Echinocytes 1+ Prothrombin Time 12.5 SECONDS Prothromb Time International Ratio 1.2 Activated Partial Thromboplast Time 27.1 SECONDS Partial Thromboplastin Ratio 1.0 Sodium Level 140 mmol/L Potassium Level 3.5 mmol/L Chloride Level 102 mmol/L Carbon Dioxide Level 29 mmol/L Anion Gap 9.0 mmol/L Blood Urea Nitrogen 60 mg/dl Creatinine 3.90 mg/dl Estimated GFR () 18.7 Estimated GFR (Non- 16.2 BUN/Creatinine Ratio 15.5 Random Glucose 77 mg/dl Calcium Level 10.3 mg/dl Total Bilirubin 2.7 mg/dl Direct Bilirubin 1.8 mg/dl Aspartate Amino Transf (AST/SGOT) 17 U/L Alanine Aminotransferase (ALT/SGPT) 14 U/L Alkaline Phosphatase 96 U/L Ammonia 24.0 umol/L Troponin I < 0.015 ng/ml Total Protein 6.3 gm/dl Albumin 3.1 gm/dl [place] Level 1.9 mMOL/L Bedside Lactic Acid Venous 1.23 mmol/L Influenza Type A Antigen Neg for Influ A Influenza Type B Antigen Neg for Influ B Urine Color DK YELLOW Urine Appearance CLOUDY Urine pH 5.0 Urine Specific [place] 1.011 Urine Protein TRACE Urine Glucose (UA) NEG Urine Ketones TRACE Urine Occult Blood NEG Urine Nitrite NEG Urine Bilirubin NEG Urine Urobilinogen NEG Urine Leukocyte Esterase NEG Urine WBC (Auto) 1-5 /hpf Urine RBC (Auto) 5-10 /hpf Urine Hyaline Casts (Auto) 1-5 /lpf Urine Epithelial Cells (Auto) 10-20 /lpf Urine Bacteria (Auto) NEG Test 04/16/16 01:43 04/16/16 06:45 04/16/16 07:00 Vitamin B12 Level 520 pg/mL Folate 8.98 ng/mL [place] Level < 0.2 mMOL/L White Blood Count 5.14 K/uL Red Blood Count 3.27 M/uL Hemoglobin 9.3 g/dL Hematocrit 28.3 % Mean Corpuscular Volume 86.5 fL Mean Corpuscular Hemoglobin 28.4 pg Mean Corpuscular Hemoglobin Concent 32.9 g/dl Platelet Count 57 K/uL Mean Platelet Volume 10.4 fL Neutrophils (%) (Auto) 82.6 % Lymphocytes (%) (Auto) 11.7 % Monocytes (%) (Auto) 4.5 % Eosinophils (%) (Auto) 0.4 % Basophils (%) (Auto) 0.2 % Neutrophils # (Auto) 4.25 K/uL Lymphocytes # (Auto) 0.60 K/uL Monocytes # (Auto) 0.23 K/uL Eosinophils # (Auto) 0.02 K/uL Basophils # (Auto) 0.01 K/uL RDW Standard Deviation 53.5 fL RDW Coefficient of Variation 16.6 % Immature Granulocyte % (Auto) 0.6 % Immature Granulocyte # (Auto) 0.03 K/uL Neutrophils % (Manual) 88.5 % Lymphocytes % (Manual) 8.8 % Monocytes % (Manual) 2.7 % Neutrophils # (Manual) 4.55 K/uL Total Absolute Neutrophils 4.55 K/uL Lymphocytes # (Manual) 0.45 K/uL Total Absolute Lymphocytes 0.45 K/uL Monocytes # (Manual) 0.14 K/uL Anisocytosis PRESENT Tear Drop Cells 1+ Ovalocytes 1+ Sodium Level 144 mmol/L Potassium Level 3.6 mmol/L Chloride Level 106 mmol/L Carbon Dioxide Level 26 mmol/L Anion Gap 12.0 mmol/L Blood Urea Nitrogen 56 mg/dl Creatinine 3.10 mg/dl Est Creatinine Clear Calc Drug Dose 29.2 ml/min Estimated GFR () 24.7 Estimated GFR (Non- 21.3 BUN/Creatinine Ratio 18.1 Random Glucose 83 mg/dl Calcium Level 9.5 mg/dl Total Bilirubin 2.4 mg/dl Aspartate Amino Transf (AST/SGOT) 18 U/L Alanine Aminotransferase (ALT/SGPT) 14 U/L Alkaline Phosphatase 94 U/L Total Protein 6.0 gm/dl Albumin 2.8 gm/dl Globulin 3.2 gm/dl Albumin/Globulin Ratio 0.9 Thyroid Stimulating Hormone (TSH) 1.180 uIu/ml Assessment and Plan 1. JAS - unclear what chemo medications he has had which may have caused JAS - clinically hypovolemic - Li+ levels initially elevated as well, now low - check bladder scan to evaluate for obstruction - check renal US - UA not suggestive of infectious process - send urine for electrolytes, however, may not be as accurate with IVF given - nephrology consult - will need repeat UA to re-evaluate proteinuria and will need to be quantified after acute phase - cont IVF 2. Metabolic encephalopathy - 2/2 uremia vs mets - will consider MRI if mental status does not improve, however, according to bedside guards, this is not far from baseline, more concerned about falls 3. Right tonsillar invasive squamous cell ca - will need details re: chemo medications 4. DVT ppx with hsq
[2016-04-16] MEDS: HEPARIN SOD 5000 UNIT/0.5 ML CARP SQ SCH ×2 (08:36→20:28)
--- NOTE | 2016-04-16 10:20 | DIAGNOSTIC IMAGING REPORT ---
ULTRASOUND KIDNEYS AND BLADDER CLINICAL HISTORY: Acute renal insufficiency. COMPARISON STUDY: PET/CT dated 03/25/2016. TECHNIQUE: Real-time, grayscale, and color flow sonography of the kidneys and bladder is performed. Images are reviewed in the transverse and longitudinal planes. FINDINGS: Kidneys: The kidneys demonstrate mild cortical atrophy and increased cortical echotexture. The right kidney measures 9.9 x 6.3 x 5.1 cm and the left kidney measures 12.5 x 5.0 x 7.9 cm. There is no hydronephrosis. No shadowing renal calculi are identified. There is no sonographic evidence of contour deforming renal mass lesion. No perinephric fluid is identified. Bladder: The bladder is normal in morphology. Intraluminal debris is noted. Bilateral ureteral jets were seen. Abdomen: The spleen is markedly enlarged measuring over 18 cm in length. Visualized portions of liver demonstrate changes of cirrhosis. IMPRESSION: 1. The kidneys demonstrate mild cortical atrophy and increased cortical echotexture suggesting medical renal disease. 2. There is no hydronephrosis. 3. Debris is noted in the bladder. Correlation with urinalysis will be required. 4. Cirrhotic liver morphology and splenomegaly are noted. Electronically signed by: Ramírez Forte M.D. 04/16/2016 10:19 AM Dictated Date/Time: 04/16/2016 10:17 AM
--- NOTE | 2016-04-16 11:03 | Nephrology Consultation ---
Nephrology Consultation Date & Providers Date of Consultation: Apr 16, 2016. Primary Care Provider: Giovanny VILLA Referring Provider: Reason for Consultation Evaluation of acute kidney injury History of Present Illness Mr. Leiva is a 55 year old white male who is seen at the request of Dr. Crook for evaluation of acute kidney injury. The patient cannot provide any medical history. Medical records in the hospital EMR were reviewed today and are summarized as follows: The patient is incarcerated at [facility]. He has a intermediate card tender history of tobacco and alcohol use. Over the last two months he has had a sore throat. Evaluation has revealed the presence of a 4 x 3 cm right tonsillar CA. 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 MRI revealed involvement of regional lymph nodes but no spread to the ELECTROPHYSIOLOGIST, chest, abdomen or bone. Patient was evaluated by oncology and started on high dose cisplatin therapy. It was recommended that he have a feeding tube placed to ensure adequate nutritional and hydration therapy while on chemotherapy. This has not yet been completed. The patient has had several falls over the last two days. He was brought to the ED for evaluation. He was found to have dehydration and JAS (creatinine 3.9, baseline 0.8 04/08/16). FeNa is 0.9%. Renal US is negative for obstruction. Patient has been admitted for IV hydration and ongoing medical management. 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 Laura Allergies Coded Allergies: Morphine and Related (Verified Allergy, Unknown, UNKNOWN, 04/16/16) Inpatient Medications Current Inpatient Medications Medications (Trade) Dose Ordered Sig/Ivan Route Start Time Stop Time Status Last Admin Dose Admin Acetaminophen (Tylenol Tab) 650 mg Q4H PRN PO 04/16/16 01:30 05/16/16 01:29 Al Hydrox/Mg Hydrox/Simethicone (Maalox Max Susp) 15 ml Q4H PRN PO 04/16/16 01:30 05/16/16 01:29 Magnesium Hydroxide (Milk Of Magnesia Susp) 30 ml Q6H PRN PO 04/16/16 01:30 05/16/16 01:29 Polyethylene (Miralax Powder Packet) 17 gm DAILY PRN PO 04/16/16 01:30 05/16/16 01:29 Ondansetron HCl (Zofran Inj) 4 mg Q6H PRN IV 04/16/16 01:30 05/16/16 01:29 Heparin Sodium (Porcine) (Heparin Sq 5000 Unit/0.5ml) 5,000 unit Q12H SQ 04/16/16 09:00 05/16/16 08:59 04/16/16 08:36 5,000 UNIT Miscellaneous 1 ea 1 ea PRN PRN N/A 04/16/16 02:00 04/16/17 01:59 Sodium Chloride 1,000 ml @ 125 mls/hr Q8H IV 04/16/16 02:45 05/16/16 02:44 04/16/16 02:45 125 MLS/HR Dexamethasone/ Nystatin/ Diphenhydramine HCl/Sucrose/ Microcrystalline Cellulose/Barcode (Decadron Conc Soln/Mycostatin Susp/Benadryl Syrup/Ora-Sweet Syrup/Ora-Plus Susp. Vehicle) QID PRN PO 04/16/16 02:45 05/16/16 02:44 Family History Patient reports no known family medical history. # Negative for CKD / ESRD Social History Smoking Status: Former Smoker Smokeless Tobacco Use: Unknown Alcohol Use: unknown Drug Use: other (unknown) Marital Status: single Housing Status: other ([facility]) Occupation: other (intermediate) Incarcerated. History of tobacco and alcohol abuse Review of Systems Patient is lethargic and unable to provide ROS Physical Exam Date Time Temp Pulse Resp B/P Pulse Ox O2 Delivery O2 Flow Rate FiO2 04/16/16 07:29 36.7 108 20 137/65 95 Room Air 04/16/16 03:01 36.9 98 18 125/75 95 Room Air 04/16/16 02:07 37.0 90 13 136/78 98 04/16/16 01:28 111/64 98 Nasal Cannula 2.0 04/16/16 01:16 86 13 04/16/16 00:58 108/65 04/16/16 00:46 91 16 04/16/16 00:28 101/62 04/16/16 00:22 103 18 112/61 100 Room Air 04/16/16 00:16 118 20 04/16/16 00:07 112/61 04/15/16 23:46 99 11 04/15/16 23:16 96 15 04/15/16 23:01 105 04/15/16 22:51 94 Nasal Cannula 2.0 04/15/16 22:51 37.0 96 20 92/58 89 Room Air 04/15/16 22:48 92/58 General Appearance: + thin (chronically ill appearing) Head: + pertinent finding (scalp and nasal lacerations have been sutured. No active bleeding) Eyes: PERRL, EOMI ENT: + pertinent finding (dry mucous membranes) Neck: no JVD Respiratory/Chest: lungs clear, no respiratory distress Cardiovascular: regular rate, rhythm Abdomen/GI: normal bowel sounds, non tender, soft Extremities/Musculoskelatal: no calf tenderness, no pedal edema Neurologic/Psych: alert, oriented x 3 Laboratory Results Last 24 Hours Test 04/15/16 23:34 04/15/16 23:37 04/16/16 00:00 04/16/16 00:17 White Blood Count 6.06 K/uL Red Blood Count 3.41 M/uL Hemoglobin 9.9 g/dL Hematocrit 29.5 % Mean Corpuscular Volume 86.5 fL Mean Corpuscular Hemoglobin 29.0 pg Mean Corpuscular Hemoglobin Concent 33.6 g/dl Platelet Count 70 K/uL Mean Platelet Volume 11.0 fL Neutrophils (%) (Auto) 86.4 % Lymphocytes (%) (Auto) 10.1 % Monocytes (%) (Auto) 2.5 % Eosinophils (%) (Auto) 0.3 % Basophils (%) (Auto) 0.2 % Neutrophils # (Auto) 5.24 K/uL Lymphocytes # (Auto) 0.61 K/uL Monocytes # (Auto) 0.15 K/uL Eosinophils # (Auto) 0.02 K/uL Basophils # (Auto) 0.01 K/uL RDW Standard Deviation 53.3 fL RDW Coefficient of Variation 16.7 % Immature Granulocyte % (Auto) 0.5 % Immature Granulocyte # (Auto) 0.03 K/uL Platelet Estimate DECREASED Tear Drop Cells 1+ Ovalocytes 1+ Echinocytes 1+ Prothrombin Time 12.5 SECONDS Prothromb Time International Ratio 1.2 Activated Partial Thromboplast Time 27.1 SECONDS Partial Thromboplastin Ratio 1.0 Sodium Level 140 mmol/L Potassium Level 3.5 mmol/L Chloride Level 102 mmol/L Carbon Dioxide Level 29 mmol/L Anion Gap 9.0 mmol/L Blood Urea Nitrogen 60 mg/dl Creatinine 3.90 mg/dl Estimated GFR () 18.7 Estimated GFR (Non- 16.2 BUN/Creatinine Ratio 15.5 Random Glucose 77 mg/dl Calcium Level 10.3 mg/dl Total Bilirubin 2.7 mg/dl Direct Bilirubin 1.8 mg/dl Aspartate Amino Transf (AST/SGOT) 17 U/L Alanine Aminotransferase (ALT/SGPT) 14 U/L Alkaline Phosphatase 96 U/L Ammonia 24.0 umol/L Troponin I < 0.015 ng/ml Total Protein 6.3 gm/dl Albumin 3.1 gm/dl [place] Level 1.9 mMOL/L Bedside Lactic Acid Venous 1.23 mmol/L Influenza Type A Antigen Neg for Influ A Influenza Type B Antigen Neg for Influ B Urine Color DK YELLOW Urine Appearance CLOUDY Urine pH 5.0 Urine Specific [place] 1.011 Urine Protein TRACE Urine Glucose (UA) NEG Urine Ketones TRACE Urine Occult Blood NEG Urine Nitrite NEG Urine Bilirubin NEG Urine Urobilinogen NEG Urine Leukocyte Esterase NEG Urine WBC (Auto) 1-5 /hpf Urine RBC (Auto) 5-10 /hpf Urine Hyaline Casts (Auto) 1-5 /lpf Urine Epithelial Cells (Auto) 10-20 /lpf Urine Bacteria (Auto) NEG Test 04/16/16 01:43 04/16/16 06:45 04/16/16 07:00 04/16/16 10:20 Vitamin B12 Level 520 pg/mL Folate 8.98 ng/mL [place] Level < 0.2 mMOL/L White Blood Count 5.14 K/uL Red Blood Count 3.27 M/uL Hemoglobin 9.3 g/dL Hematocrit 28.3 % Mean Corpuscular Volume 86.5 fL Mean Corpuscular Hemoglobin 28.4 pg Mean Corpuscular Hemoglobin Concent 32.9 g/dl Platelet Count 57 K/uL Mean Platelet Volume 10.4 fL Neutrophils (%) (Auto) 82.6 % Lymphocytes (%) (Auto) 11.7 % Monocytes (%) (Auto) 4.5 % Eosinophils (%) (Auto) 0.4 % Basophils (%) (Auto) 0.2 % Neutrophils # (Auto) 4.25 K/uL Lymphocytes # (Auto) 0.60 K/uL Monocytes # (Auto) 0.23 K/uL Eosinophils # (Auto) 0.02 K/uL Basophils # (Auto) 0.01 K/uL RDW Standard Deviation 53.5 fL RDW Coefficient of Variation 16.6 % Immature Granulocyte % (Auto) 0.6 % Immature Granulocyte # (Auto) 0.03 K/uL Neutrophils % (Manual) 88.5 % Lymphocytes % (Manual) 8.8 % Monocytes % (Manual) 2.7 % Neutrophils # (Manual) 4.55 K/uL Total Absolute Neutrophils 4.55 K/uL Lymphocytes # (Manual) 0.45 K/uL Total Absolute Lymphocytes 0.45 K/uL Monocytes # (Manual) 0.14 K/uL Anisocytosis PRESENT Tear Drop Cells 1+ Ovalocytes 1+ Sodium Level 144 mmol/L Potassium Level 3.6 mmol/L Chloride Level 106 mmol/L Carbon Dioxide Level 26 mmol/L Anion Gap 12.0 mmol/L Blood Urea Nitrogen 56 mg/dl Creatinine 3.10 mg/dl Est Creatinine Clear Calc Drug Dose 29.2 ml/min Estimated GFR () 24.7 Estimated GFR (Non- 21.3 BUN/Creatinine Ratio 18.1 Random Glucose 83 mg/dl Calcium Level 9.5 mg/dl Total Bilirubin 2.4 mg/dl Aspartate Amino Transf (AST/SGOT) 18 U/L Alanine Aminotransferase (ALT/SGPT) 14 U/L Alkaline Phosphatase 94 U/L Total Protein 6.0 gm/dl Albumin 2.8 gm/dl Globulin 3.2 gm/dl Albumin/Globulin Ratio 0.9 Thyroid Stimulating Hormone (TSH) 1.180 uIu/ml Urine Random Creatinine 87.0 mg/dl Urine Random Sodium 40 mEq/L Urine Random Potassium 20.4 mEq/L Urine Random Chloride 55 mEq/L Impression (1) Altered mental status (2) Right tonsillar squamous cell carcinoma (3) Acute kidney failure (4) Bipolar disorder (5) Alcohol abuse (6) Cirrhosis (7) Tobacco abuse Incarcerated 55 year old white male w/ bipolar disorder, alcoholism and longstanding h/o tobacco abuse. He was recently diagnosed w/ squamous cell CA of the right tonsil and surrounding lymph nodes. He was recently started on high dose cisplatin therapy. Patient now admitted with dehydration, recurrent falls and JAS (creatinine 3.9, baseline 0.8 04/08/16). FeNa is 0.9%. Renal US is negative for obstruction. Patient has been admitted for IV hydration and ongoing medical management. Recommendations ACUTE KIDNEY INJURY: -- Baseline creatinine was 0.8 (04/08/16) -- FeNa was 0.9%. Renal US is negative for obstruction -- Agree w/ aggressive hydration using 0.9 NS -- Monitor serial PRP -- Urinalysis was negative for glucosuria BIPOLAR DISORDER: -- [place] level is low -- Hold lithium until kidney function is near baseline MENTAL STATUS CHANGES: -- Head CT report was reviewed this am. No intracranial abnormality -- Patient has cirrhosis by CT films. Ammonia level was checked and remains within normal limits -- Await results of blood cultures. Urinalysis is not suggestive of infection
[2016-04-16] MEDS ORDERED: D5W AND 1/2NSS + 20MEQ KCL 1,000 ML IV SCH (16:15)
[2016-04-16] MEDS: D5W AND 1/2NSS 1,000 ML IV SCH (17:30)
[2016-04-17] VITALS (8 sets, daily range): BP systolic 118–156; BP diastolic 71–92; PULSE 70–109; TEMP 36.3–36.8; O2SAT 94–99; BMI 24.4
[2016-04-17] MEDS: D5W AND 1/2NSS 1,000 ML IV SCH ×3 (01:00→16:32)
[2016-04-17] MEDS: ACETAMINOPHEN 325 MG TAB PO PRN ×2 (01:39→16:33)
[2016-04-17 09:35] LABS: HEMATOCRIT 28.1 % (42-52); MEAN CELL VOLUME 87.3 fL (80-100); MEAN CORPUSCULAR HEMOGLOBIN 28.6 pg (25-34); MEAN CORPUSCULAR HGB CONC 32.7 g/dl (32-36); PLATELET COUNT 58 K/uL (130-400); RED BLOOD COUNT 3.22 M/uL (4.7-6.1); WHITE BLOOD COUNT 4.95 K/uL (4.8-10.8)
--- NOTE | 2016-04-17 09:37 | Progress Note ---
Subjective Date of Service: Apr 17, 2016. Subjective Pt evaluation today including: conversation w/ patient, physical exam, lab review, review of inpatient medication list Patient has intermittent episodes of agitation and confusion. During my exam, patient was calm and cooperative. Per RN and bedside guards, patient was combative and confused. Otherwise, no chest pain, no sob, no abd pain. Feels thirsty. Problem List Medical Problems: (1) Acute renal failure Status: Acute (2) Dehydration Status: Acute (3) Metabolic encephalopathy Status: Acute Review of Systems ROs as above. All Other Systems: Reviewed and Negative Medications Acetaminophen (Tylenol Tab) 650 mg Q4H PRN PO Last administered on 04/17/16 01:39; Admin Dose 650 MG; Start 04/16/16 at 01:30; Stop 05/16/16 at 01:29 Al Hydrox/Mg Hydrox/Simethicone (Maalox Max Susp) 15 ml Q4H PRN PO; Start 04/16 at 01:30; Stop 05/16/16 at 01:29 Dexamethasone 3.75 mg/Nystatin 30 ml/ Diphenhydramine HCl 300 mg/ Sucrose 45 ml / Microcrystalline Cellulose 45 ml/ Barcode 1 ea QID PRN PO; Start 04/16/16 at 02:45; Stop 05/16/16 at 02:44 Dextrose/Sodium Chloride (D5W And 1/2nss) 1,000 ml @ 125 mls/hr Q8H IV Last administered on 04/17/16 01:00; Admin Dose 125 MLS/HR; Start 04/16/16 at 16:15 ; Stop 05/16/16 at 16:14 Heparin Sodium (Porcine) (Heparin Sq 5000 Unit/0.5ml) 5,000 unit Q12H SQ Last administered on 04/16/16 20:28; Admin Dose 5,000 UNIT; Start 04/16/16 at 09:00 ; Stop 05/16/16 at 08:59 Magnesium Hydroxide (Milk Of Magnesia Susp) 30 ml Q6H PRN PO; Start 04/16/16 at 01:30; Stop 05/16/16 at 01:29 Miscellaneous 1 ea PRN PRN N/A; Start 04/16/16 at 02:00; Stop 04/16/17 at 01:59 Ondansetron HCl (Zofran Inj) 4 mg Q6H PRN IV Last administered on 04/17/16t 01: 34; Admin Dose 4 MG; Start 04/16/16 at 01:30; Stop 05/16/16 at 01:29 Polyethylene (Miralax Powder Packet) 17 gm DAILY PRN PO; Start 04/16/16 at 01: 30; Stop 05/16/16 at 01:29 Objective Vital Signs Date Time Temp Pulse Resp B/P Pulse Ox O2 Delivery O2 Flow Rate FiO2 04/17/16 07:39 36.3 74 20 151/73 96 Room Air 04/17/16 04:07 36.5 91 18 151/92 94 Room Air 04/17/16 00:09 36.8 109 20 152/73 94 Room Air 04/16/16 19:32 36.6 112 18 136/66 93 Room Air 04/16/16 16:52 104 04/16/16 16:15 93 Room Air 04/16/16 15:51 36.6 130 18 110/66 92 Room Air 04/16/16 11:16 37.1 106 20 117/74 96 Room Air Physical Exam Comments: NAD, more aware and alert than yesterday, still not oriented to time and place PERRL, EOMI S1 S2 RRR, no m/r/g CTAB no w/r/r ABd soft, nt/nd +BS, no cva tenderness no LE edema with good DP b/l dry mucosa Laboratory Results Last 24 Hours Test 04/16/16 10:20 04/17/16 04:44 04/17/16 07:36 Urine Random Creatinine 87.0 mg/dl Urine Random Sodium 40 mEq/L Urine Random Potassium 20.4 mEq/L Urine Random Chloride 55 mEq/L Kidneys: The kidneys demonstrate mild cortical atrophy and increased cortical echotexture. The right kidney measures 9.9 x 6.3 x 5.1 cm and the left kidney measures 12.5 x 5.0 x 7.9 cm. There is no hydronephrosis. No shadowing renal calculi are identified. There is no sonographic evidence of contour deforming renal mass lesion. No perinephric fluid is identified. Bladder: The bladder is normal in morphology. Intraluminal debris is noted. Bilateral ureteral jets were seen. Abdomen: The spleen is markedly enlarged measuring over 18 cm in length. Visualized portions of liver demonstrate changes of cirrhosis. IMPRESSION: 1. The kidneys demonstrate mild cortical atrophy and increased cortical echotexture suggesting medical renal disease. 2. There is no hydronephrosis. 3. Debris is noted in the bladder. Correlation with urinalysis will be required. 4. Cirrhotic liver morphology and splenomegaly are noted. Assessment and Plan 1. JAS - improved with IV hydration - cont IV hydration - Li levels still fluctuating 2. Metabolic encephalopathy - 2/2 uremia vs mets - will hold off on MRI - psych consult especially with agitation and being off [place] 3. Right tonsillar invasive squamous cell ca - has refused further treatments with chemo and radiation - patientis in the process of obtaining legal guardianship as he was deemed incapable of making medical decisions for himself - FULL code but holding off on any invasive procedures including PEG tube 4. Poor po intake - does not tolerate much po with mass in the throat - will need to determine if he'll need to be considered for TPN (facility allows for IV infusions) vs just IV fluids depending on how much patient tolerates po when his mentation improves 5. DVT ppx with hsq
[2016-04-17 09:42] LABS: BUN/CREATININE RATIO 18.2 (10-20); CALCIUM 9.2 mg/dl (8.5-10.1); CREATININE 1.8 mg/dl (0.60-1.40); MAGNESIUM 1.3 mg/dl (1.8-2.4); POTASSIUM 3.2 mmol/L (3.5-5.1)
[2016-04-17 09:45] LABS: ALB/GLOB RATIO 0.9 (0.9-2); PHOSPHORUS 1.7 mg/dl (2.5-4.9)
--- NOTE | 2016-04-17 10:03 | Nephrology Progress Note ---
Nephrology Progress Note Date of Service Apr 17, 2016. Chief Complaint Evaluation of acute kidney injury Subjective Mr. Leiva was seen and examined in his hospital room this morning. He is much more alert today. He is oriented to self only but will follow simple one step commands. He is tolerating IV hydration. He voices no new medical concerns. Review of Systems Patient unable to complete ROS Vital Signs Last 8 Hrs Date Time Temp Pulse Resp B/P Pulse Ox O2 Delivery O2 Flow Rate FiO2 04/17/16 07:39 36.3 74 20 151/73 96 Room Air 04/17/16 04:07 36.5 91 18 151/92 94 Room Air I & O 24-Hour Column 04/17/16 08:00 Intake Total 2797 ml Output Total 1425 ml Balance 1372 ml Last Recorded Weight Weight (Kilograms): 81.500 Physical Exam General Appearance: no apparent distress Head: atraumatic (temporal muscle wasting) Eyes: PERRL, EOMI ENT: + pertinent finding (dry mucous membranes) Neck: no adenopathy Respiratory/Chest: lungs clear Cardiovascular: regular rate, rhythm Abdomen/GI: normal bowel sounds, non tender, soft Extremities/Musculoskelatal: no calf tenderness, no pedal edema Neurologic/Psych: alert (oriented to self only) Family History Patient reports no known family medical history. # Negative for CKD / ESRD Social History Smokeless Tobacco Use: Unknown Alcohol Use: unknown Drug Use: other (unknown) Marital Status: single Housing Status: other ([facility]) Occupation: other (residential) Incarcerated. History of tobacco and alcohol abuse Laboratory Results Past 24 Hours 04/17/16 07:36 04/17/16 07:36 Test 04/16/16 10:20 04/17/16 04:44 04/17/16 07:36 Urine Random Creatinine 87.0 mg/dl Urine Random Sodium 40 mEq/L Urine Random Potassium 20.4 mEq/L Urine Random Chloride 55 mEq/L Red Blood Count 3.22 M/uL (4.7-6.1) Mean Corpuscular Volume 87.3 fL (80-100) Mean Corpuscular Hemoglobin 28.6 pg (25-34) Mean Corpuscular Hemoglobin Concent 32.7 g/dl (32-36) RDW Standard Deviation 54.4 fL (36.4-46.3) RDW Coefficient of Variation 16.8 % (11.5-14.5) Mean Platelet Volume 12.0 fL (7.4-10.4) Anion Gap 10.0 mmol/L (3-11) Est Creatinine Clear Calc Drug Dose 50.3 ml/min Estimated GFR () 47.7 Estimated GFR (Non- 41.2 BUN/Creatinine Ratio 18.2 (10-20) Calcium Level 9.2 mg/dl (8.5-10.1) Phosphorus Level 1.7 mg/dl (2.5-4.9) Magnesium Level 1.3 mg/dl (1.8-2.4) Total Bilirubin 2.4 mg/dl (0.2-1) Aspartate Amino Transf (AST/SGOT) 18 U/L (15-37) Alanine Aminotransferase (ALT/SGPT) 14 U/L (12-78) Alkaline Phosphatase 99 U/L (45-117) Total Protein 5.8 gm/dl (6.4-8.2) Albumin 2.7 gm/dl (3.4-5.0) Globulin 3.1 gm/dl (2.5-4.0) Albumin/Globulin Ratio 0.9 (0.9-2) Allergies Coded Allergies: Morphine and Related (Verified Allergy, Unknown, UNKNOWN, 04/16/16) Medications Current Inpatient Medications Medications (Trade) Dose Ordered Sig/Ivan Route Start Time Stop Time Status Last Admin Dose Admin Acetaminophen (Tylenol Tab) 650 mg Q4H PRN PO 04/16/16 01:30 05/16/16 01:29 04/17/16 01:39 650 MG Al Hydrox/Mg Hydrox/Simethicone (Maalox Max Susp) 15 ml Q4H PRN PO 04/16/16 01:30 05/16/16 01:29 Magnesium Hydroxide (Milk Of Magnesia Susp) 30 ml Q6H PRN PO 04/16/16 01:30 05/16/16 01:29 Polyethylene (Miralax Powder Packet) 17 gm DAILY PRN PO 04/16/16 01:30 05/16/16 01:29 Ondansetron HCl (Zofran Inj) 4 mg Q6H PRN IV 04/16/16 01:30 05/16/16 01:29 04/17/16 01:34 4 MG Heparin Sodium (Porcine) (Heparin Sq 5000 Unit/0.5ml) 5,000 unit Q12H SQ 04/16/16 09:00 05/16/16 08:59 04/16/16 20:28 5,000 UNIT Miscellaneous 1 ea PRN PRN N/A 04/16/16 02:00 04/16/17 01:59 Dexamethasone 3.75 mg/Nystatin 30 ml/ Diphenhydramine HCl 300 mg/ Sucrose 45 ml/ Microcrystalline Cellulose 45 ml/ Barcode 1 ea QID PRN PO 04/16/16 02:45 05/16/16 02:44 Dextrose/Sodium Chloride (D5W And 1/2nss) 1,000 ml @ 125 mls/hr Q8H IV 04/16/16 16:15 05/16/16 16:14 04/17/16 01:00 125 MLS/HR Impression (1) Altered mental status (2) Right tonsillar squamous cell carcinoma (3) Acute kidney failure (4) Bipolar disorder (5) Alcohol abuse (6) Cirrhosis (7) Tobacco abuse Incarcerated 55 year old white male w/ bipolar disorder, alcoholism and longstanding h/o tobacco abuse. He was recently diagnosed w/ squamous cell CA of the right tonsil and surrounding lymph nodes. He was recently started on high dose cisplatin therapy. Patient now admitted with dehydration, recurrent falls and JAS (creatinine 3.9, baseline 0.8 04/08/16). FeNa is 0.9%. Renal US is negative for obstruction. Patient has been admitted for IV hydration and ongoing medical management. Recommendations ACUTE KIDNEY INJURY: -- Baseline creatinine was 0.8 (04/08/16) -- FeNa was 0.9%. Renal US is negative for obstruction -- Continue hydration w/ 0.9 NS IV -- Monitor serial PRP -- Urinalysis was negative for glucosuria BIPOLAR DISORDER: -- [place] level is low -- Hold lithium until kidney function is near baseline MENTAL STATUS CHANGES: -- Head CT report 04/16: No intracranial abnormality -- Patient has cirrhosis by CT films. Ammonia level was checked and remains within normal limits -- Blood cultures are NGTD. Urinalysis is not suggestive of infection
[2016-04-17] MEDS: HEPARIN SOD 5000 UNIT/0.5 ML CARP SQ SCH ×2 (10:23→20:46)
--- NOTE | 2016-04-17 13:50 | CONSULTATION REPORT ---
DATE OF CONSULTATION: 04/17/2016 IDENTIFYING DATA: Brandon Leiva is an inmate at [facility], admitted to the hospital because of altered mental status and frequent falls. This consult is requested to evaluate medications and altered mental status. Information is not gathered from the patient as he is obtunded/sedated. HISTORY OF PRESENT ILLNESS: Brandon Leiva is a 55-year-old gentleman with medical history significant for right tonsillar squamous cell cancer, GERD and anemia, who has resided at [facility] for an unknown period of time. I have spoken with the nurses, Riri, in the [facility], who tells me that he was admitted to the [facility] on March 17 with altered mental status. At that time, he was experiencing hallucinations and bizarre behaviors. Because of his diagnosis of cancer and possibility for pain, he was prescribed morphine, which only made him more confused. Morphine was discontinued and he was placed on Percocet, improved, and hallucinations started. However, in the last several days, his altered mental status has resumed. She said that he was having visual hallucinations, disorientation, talking as if he was shopping and not in senior care. 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 It appears he was last seen by psychiatry in January for regular checkup. At that time, his lithium was increased to 150 mg in the morning and 300 mg at bedtime. Last lithium level on record was in January and that was 0.3. Last BUN and creatinine were 9 and 0.79 drawn on March 22. He was ordered a lithium level in March, but apparently that was not completed. She is unsure of his baseline as she only met him when he was admitted to the [facility] on March 17. She described that at baseline, he is supposed to be relatively lucid. There was another evaluation by their psychiatrist on April 04 to determine the capacity to make decisions regarding his care as he had been refusing to take chemo or radiation for his cancer, saying he had nothing to live for. At the time of that evaluation, he was completely disoriented and was deemed incapable of making decisions for himself regarding his medical treatment. At the time I see the patient, he is lying on his back, cuffs attached to the patient and to the bed. There are 2 correctional officers at the bedside. The patient barely arouses to verbal and tactile by opening his eyes and grunting, but then quickly falls back to sleep. He is unable to follow any commands even to open his eyes. According to the guards, he woke up this morning, was saying things that made no sense and has short period of agitation. On admission, his lithium level was noted to be 1.9. [place] was held and is trending down today to 1.2. BUN and creatinine on admission were 56 and 3.1, trending down today to 33 and 1.8. MEDICATIONS WHILE IN THE HOSPITAL: 1. Heparin. 2. Magic mouthwash. 3. P.r.n. medications. PAST PSYCHIATRIC HISTORY: As per the HPI. PAST MEDICAL HISTORY: 1. Right tonsillar squamous cell CA. 2. Hepatitis C. 3. Cirrhosis of the liver. FAMILY HISTORY: 1. Not obtainable at this time. 2. Substance use: The patient apparently has a history of alcohol and tobacco abuse. PERSONAL HISTORY: None known at this time. MENTAL STATUS EXAMINATION: See HPI. IMPRESSION: A 55-year-old inmate admitted with altered mental status and frequent falls. We know clearly that he is lithium toxic with an admission level of 1.9 and appropriately, his lithium has been held. [place] toxicity can present with altered mental status and gait instability in addition to tremors, nausea and diarrhea. Agree with holding lithium until BUN and creatinine normalize and lithium is below 1.0. I do not have any indication that he has had recurrent episodes of lithium toxicity and therefore, 1 bout of lithium toxicity is not a reason to discontinue the lithium altogether. He may, however, given his multiple medical conditions, take a period of time to clear if his altered mental status is related solely to lithium toxicity. While here in the hospital, I would encourage we hold lithium until he clears. He is also prescribed Cymbalta 60 mg as well as Risperdal 3 mg at bedtime. I see no reason to hold Cymbalta at this time. In view of the patient's agitation this morning, I would encourage restart of Risperdal perhaps a lower dose, 1 mg at bedtime as soon as primary team has cleared him to do so. We will follow along for any psychiatric additions. DIAGNOSES: 1. 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 2. Bipolar disorder, unspecified. 3. Medical conditions as above. PLAN: Has been reviewed with Dr. Vandana Jackson. 1. Psychosis/bipolar disorder. a. Hominy toxic with an admission lithium level of 1.9. Agree with hold lithium until it comes down below 1.0. b. Would recommend restarting Cymbalta 60 mg daily. c. Would recommend restarting Risperdal perhaps at a reduced dosage of 1 mg at bedtime in view of the patient's periods of agitation. d. We will follow. I thank you for allowing me to participate in this man's care. STEVIE
[2016-04-17] MEDS ORDERED: POTASSIUM CHLR 20 MEQ / WTR 20 MEQ in PREMIXED WATER 100 ML IV STA (17:11)
[2016-04-17] MEDS ORDERED: POTASSIUM PHOS 3 MMOL/1 ML INFUSION IV STA (17:13)
[2016-04-17] MEDS ORDERED: MAGNESIUM SULFATE 1GM / D5W 1 GM in PREMIXED IN D5W 100 ML IV ONE (17:45)
[2016-04-17] MEDS ORDERED: POTASSIUM PHOSPHATE INJ 15 MMOL in SODIUM CHLORIDE 0.9% 250ML 250 ML IV ONE (18:45)
[2016-04-17] MEDS: D5W AND 1/4NSS 1,000 ML IV SCH (20:54)
[2016-04-18 03:12] VITALS: BP 138/82; PULSE 107; TEMP 37.1; O2SAT 96
[2016-04-18] MEDS: D5W AND 1/4NSS 1,000 ML IV SCH ×2 (04:11→14:27)
[2016-04-18 06:24] VITALS: Ht 182.9 cm; Wt 81.1 kg
[2016-04-18 07:26] VITALS: BP 131/70; PULSE 104; TEMP 36.8; O2SAT 98
[2016-04-18 07:48] LABS: HEMATOCRIT 27.2 % (42-52); MEAN CELL VOLUME 87.5 fL (80-100); MEAN CORPUSCULAR HEMOGLOBIN 29.3 pg (25-34); MEAN CORPUSCULAR HGB CONC 33.5 g/dl (32-36); RED BLOOD COUNT 3.11 M/uL (4.7-6.1); WHITE BLOOD COUNT 4.77 K/uL (4.8-10.8)
[2016-04-18 08:03] LABS: MEAN PLATELET VOLUME 10.3 fL (7.4-10.4); PLATELET COUNT 49 K/uL (130-400)
[2016-04-18] MEDS: HEPARIN SOD 5000 UNIT/0.5 ML CARP SQ SCH (08:26)
[2016-04-18 08:35] LABS: ALB/GLOB RATIO 0.8 (0.9-2); BUN/CREATININE RATIO 13.8 (10-20); CALCIUM 8.7 mg/dl (8.5-10.1); CREATININE 1.2 mg/dl (0.60-1.40); MAGNESIUM 1.2 mg/dl (1.8-2.4); PHOSPHORUS 2.3 mg/dl (2.5-4.9)
--- NOTE | 2016-04-18 10:03 | Nephrology Progress Note ---
Nephrology Progress Note Date of Service Apr 18, 2016. Chief Complaint Evaluation of acute kidney injury Subjective Mr. Leiva was seen and examined in his hospital room this morning. He is alert and oriented to self. He will follow simple one step commands. He is tolerating IV hydration. He voices no new medical concerns. Review of Systems Patient is unable to provide a ROS Vital Signs Last 8 Hrs Date Time Temp Pulse Resp B/P Pulse Ox O2 Delivery O2 Flow Rate FiO2 04/18/16 07:26 36.8 104 20 131/70 98 Room Air 04/18/16 03:12 37.1 107 18 138/82 96 Room Air I & O 24-Hour Column 04/18/16 08:00 Intake Total 2451 ml Output Total 1175 ml Balance 1276 ml Last Recorded Weight Weight (Kilograms): 81.100 Physical Exam General Appearance: no apparent distress Head: normocephalic, + pertinent finding (scalp lacerations appear to be healing) Eyes: PERRL, EOMI Neck: no adenopathy Respiratory/Chest: lungs clear Cardiovascular: regular rate, rhythm Abdomen/GI: normal bowel sounds, non tender, soft Extremities/Musculoskelatal: no calf tenderness, no pedal edema Neurologic/Psych: alert (oriented to self only) Family History Patient reports no known family medical history. # Negative for CKD / ESRD Social History Smokeless Tobacco Use: Unknown Alcohol Use: unknown Drug Use: other (unknown) Marital Status: single Housing Status: other ([facility] Occupation: other (shelter) Incarcerated. History of tobacco and alcohol abuse Laboratory Results Past 24 Hours 04/18/16 07:15 04/18/16 07:15 Test 04/17/16 10:30 04/18/16 07:15 [place] Level 1.2 mMOL/L (0.6-1.2) Red Blood Count 3.11 M/uL (4.7-6.1) Mean Corpuscular Volume 87.5 fL (80-100) Mean Corpuscular Hemoglobin 29.3 pg (25-34) Mean Corpuscular Hemoglobin Concent 33.5 g/dl (32-36) RDW Standard Deviation 53.8 fL (36.4-46.3) RDW Coefficient of Variation 16.7 % (11.5-14.5) Mean Platelet Volume 10.3 fL (7.4-10.4) Anion Gap 9.0 mmol/L (3-11) Est Creatinine Clear Calc Drug Dose 75.5 ml/min Estimated GFR () 77.9 Estimated GFR (Non- 67.2 BUN/Creatinine Ratio 13.8 (10-20) Calcium Level 8.7 mg/dl (8.5-10.1) Phosphorus Level 2.3 mg/dl (2.5-4.9) Magnesium Level 1.2 mg/dl (1.8-2.4) Total Bilirubin 1.7 mg/dl (0.2-1) Aspartate Amino Transf (AST/SGOT) 20 U/L (15-37) Alanine Aminotransferase (ALT/SGPT) 16 U/L (12-78) Alkaline Phosphatase 97 U/L (45-117) Total Protein 5.5 gm/dl (6.4-8.2) Albumin 2.5 gm/dl (3.4-5.0) Globulin 3.0 gm/dl (2.5-4.0) Albumin/Globulin Ratio 0.8 (0.9-2) Allergies Coded Allergies: Morphine and Related (Verified Allergy, Unknown, UNKNOWN, 04/16/16) Medications Current Inpatient Medications Medications (Trade) Dose Ordered Sig/Ivan Route Start Time Stop Time Status Last Admin Dose Admin Acetaminophen (Tylenol Tab) 650 mg Q4H PRN PO 04/16/16 01:30 05/16/16 01:29 04/17/16 16:33 650 MG Al Hydrox/Mg Hydrox/Simethicone (Maalox Max Susp) 15 ml Q4H PRN PO 04/16/16 01:30 05/16/16 01:29 Magnesium Hydroxide (Milk Of Magnesia Susp) 30 ml Q6H PRN PO 04/16/16 01:30 05/16/16 01:29 Polyethylene (Miralax Powder Packet) 17 gm DAILY PRN PO 04/16/16 01:30 05/16/16 01:29 Ondansetron HCl (Zofran Inj) 4 mg Q6H PRN IV 04/16/16 01:30 05/16/16 01:29 04/17/16 01:34 4 MG Heparin Sodium (Porcine) (Heparin Sq 5000 Unit/0.5ml) 5,000 unit Q12H SQ 04/16/16 09:00 05/16/16 08:59 04/18/16 08:26 5,000 UNIT Miscellaneous 1 ea PRN PRN N/A 04/16/16 02:00 04/16/17 01:59 Dexamethasone 3.75 mg/Nystatin 30 ml/ Diphenhydramine HCl 300 mg/ Sucrose 45 ml/ Microcrystalline Cellulose 45 ml/ Barcode 1 ea QID PRN PO 04/16/16 02:45 05/16/16 02:44 Dextrose/Sodium Chloride (D5W And 1/4nss) 1,000 ml @ 100 mls/hr Q10H IV 04/17/16 17:15 05/17/16 17:14 04/18/16 04:11 100 MLS/HR Impression (1) Altered mental status (2) Right tonsillar squamous cell carcinoma (3) Acute kidney failure (4) Bipolar disorder (5) Alcohol abuse (6) Cirrhosis (7) Tobacco abuse Incarcerated 55 year old white male w/ bipolar disorder, alcoholism and longstanding h/o tobacco abuse. He was diagnosed w/ squamous cell CA of the right tonsil and surrounding lymph nodes. He was recently started on high dose cisplatin therapy. Patient admitted with dehydration, recurrent falls and JAS ( creatinine 3.9, baseline 0.8 04/08/16). FeNa is 0.9%. Renal US is negative for obstruction. Patient has been admitted for IV hydration and ongoing medical management. Recommendations ACUTE KIDNEY INJURY: -- Markedly improved. Kidney function is nearing baseline (creatinine 0.8 04/08) -- FeNa was 0.9%. Renal US is negative for obstruction -- Continue gentle hydration until patient is tolerating diet -- Monitor serial PRP, Mg BIPOLAR DISORDER: -- [place] as per psychiatry MENTAL STATUS CHANGES: -- Head CT report 04/16: No intracranial abnormality -- Patient has cirrhosis by CT films. Ammonia level was checked and remains within normal limits -- Blood cultures are NGTD. Urinalysis is not suggestive of infection OTHER: -- Overall condition has improved. Primary concern will be how to maintain adequate hydration and nutritional status in this patient with tonsilar CA requiring chemotherapy -- Kidney function has essentially recovered. No further nephrology evaluation needed at this time. Will sign off. Please call if further assistance is needed
[2016-04-18 11:09] VITALS: BP 131/82; PULSE 99; TEMP 36.7; O2SAT 95
[2016-04-18] MEDS: POTASSIUM CHLR 10 MEQ / WTR 10 MEQ in PREMIXED WATER 100 ML IV SCH ×4 (14:27→19:15)
[2016-04-18] MEDS ORDERED: RISP1TAB3 PO (14:28)
--- NOTE | 2016-04-18 14:34 | Discharge Instructions ---
Discharge Instructions Admission Reason for Admission: Acute Kidney Failure,Ams,Mouth Cancer Discharge Discharge Diagnosis / Problem: [place] toxicity Discharge Goals Goal(s): Decrease discomfort, Improve function, Increase independence Activity Recommendations Activity Level: Assistance Required . Additional Information Patient informed of condition: Yes Advance Directives: Yes DNR: No Level of Care: Other Communicable Disease: No Prognosis: Stable Pina Catheter: No Current Hospital Diet Patient's current hospital diet: Regular Diet Discharge Diet Recommended Diet: Regular Diet Diet Texture: Pureed (blended smooth) Liquid Consistency: Honey Thick Pending Studies Studies pending at discharge: no Physician Orders On Transfer Additional Orders: IVF, 800cc infusion TID to be titrated at discretion of facility emergency medical service manager. [place] level and PRP on 04/19/16 Restart lithium once level is <1.0 (1.2 on d/c). Given ongoing PO intake issues , would likely need to restart at lower dose to prevent recurrence of toxicity. Would recommend for 150mg BID to start and can titrate as needed. POLST Discussion: without POLST completion (pt is not able to make decisions at this time) Medical Emergencies . Who to Call and When: Medical Emergencies: If at any time you feel your situation is an emergency, please call 911 immediately. . Non-Emergent Contact Non-Emergency issues call your: Primary Care Provider . . "Provider Documentation" section prepared by Lucy Staley. Core Measure Problem Core Measures: None
[2016-04-18 14:52] VITALS: BP 126/73; PULSE 98; TEMP 36.7; O2SAT 96
--- NOTE | 2016-04-18 14:58 | Discharge Summary ---
Discharge Summary Admission Date: Apr 16, 2016 at 15:44 Discharge Date: Apr 18, 2016 Discharge Disposition: Home Problems/Secondary Diagnoses: Tonsillar ca stage IV s/p chemo/radiation Psych NOS/bipolar GERD Anemia Protein calorie malnutrition Consultations: Dr. Wells (renal) Psych Medication Reconciliation New Medications: Risperidone (Risperdal) 1 Mg Tab 1 TAB PO HS for 30 Days, #30 TAB 1 Refill Continued Medications: Acetaminophen/Codeine (Tylenol W/Codeine #3) 300 Mg/30 Mg Tab 2 TAB PO Q6 PRN for Pain Diphenhydramine Hcl (Sleep) (Diphenhydramine Hcl) 50 Mg Tab 100 MG PO HS, 1 Refill 2 CAPSULE DOSE Duloxetine HCl (Cymbalta) 20 Mg Cap 60 MG PO DAILY 3 CAPSULE DOSE Enteral Nutrition Formula (Ensure Plus Vanilla) 1 Can Liqd 1 CAN PO TID, CAN Omeprazole Magnesium (Prilosec) 10 Mg Pow 2 GM PO BID DISSOLVE IN WATER AND DRINK [Magic Mouth Wash] () 10 ML PO QID PRN for UNDECIDED SWISH AND SWALLOW Discontinued Medications: [place] Carbonate ([place] Carbonate) 150 Mg Cap 150 MG PO BID TAKE AT 0700 & 1900 [place] Carbonate ([place] Carbonate) 150 Mg Cap 300 MG PO HS 2 CAPSULE DOSE Risperidone (Risperdal) 3 Mg Tab 3 MG PO HS Discharge Exam Pt states he has a lot of aches and pains "all over". Guards report that he did not eat much breakfast, but did eat more for lunch today. Pt cannot tell me if decreased PO is due to swallowing issues vs low appetite. Guards note no struggle to swallow. One guard present states that he is familiar with pt from tx unit and he seems a bit confused, but more like his usual. Pt denies fever, SOB, chest pain, abd pain, n/v/c/d, LE pain or swelling. ROS as noted above, otherwise neg. Per CM: has been in touch with [facility] and director medical safety is applying for guardianship, which should be complete by Friday. She is quite familiar with pt and states that he stated prior to mentation issues that he would not want PEG or other IV nutrition, but that IVF would be fine. Physical Exam: General Appearance: WD/WN, no apparent distress Respiratory/Chest: normal breath sounds, no respiratory distress Cardiovascular: regular rate, rhythm, no edema Abdomen / GI: non tender, soft Neurologic/Psychiatric: alert (to person only, unable to name place or type of facility, makes vague guesses at year/month), + pertinent finding (answers most questions clearly) Skin: normal color, warm/dry Hospital Course 1. JAS - improved with IV hydration and now resolved Renal US neg for renal issues, does note cirrhosis Renal feels related to PO intake - Li levels still fluctuating, at 1.2 on d/c 2. Metabolic encephalopathy - 2/2 uremia vs mets vs lithium toxicity - will hold off on MRI - psych consult noted, recs for resuming lithium once levels are <1.0 Would resume at 150mg BID given decreased weight 3. Right tonsillar invasive squamous cell ca - has refused further treatments with chemo and radiation - facility is in the process of obtaining legal guardianship as he was deemed incapable of making medical decisions for himself - FULL code but holding off on any invasive procedures including PEG tube at recommendation of medical oncology physician who is familiar with pt and had discussions with him prior, no PEG or TPN Will continue IVF at 800cc TID for a total of 2400cc of fluid Pureed with honey thick diet as pt is able to tolerate 4. Poor po intake - does not tolerate much po with mass in the throat, as above HypoK: replaced today Will need monitored and replaced as facility sees fit Recheck tomorrow Total Time Spent: Greater than 30 minutes This includes examination of the patient, discharge planning, medication reconciliation, and communication with other providers. Discharge Instructions Please refer to the electronic Patient Visit Report (Discharge Instructions) for additional information. Follow-Up director medical safety at [facility] tomorrow Additional Copies To [facility]
[2016-04-18] MEDS: ACETAMINOPHEN 325 MG TAB PO PRN (16:18)
[2016-04-18 19:32] VITALS: BP 126/73; PULSE 98; TEMP 36.7; O2SAT 96
[2016-06-17] MEDS ORDERED: FNTTP50 TD (11:16)
[2016-07-08] MEDS ORDERED: LITH150C6 PO (11:16)
[2016-07-08] MEDS ORDERED: CLOT10TR2 MT (11:16)
[2016-07-22] MEDS ORDERED: MORP30TA PO (12:57)
[2016-07-22] MEDS ORDERED: CITRATE OF MAGNESIA (12:57)
[2016-07-22] MEDS ORDERED: LACT10SO17 PO (12:58)
== END 2016-04-18 22:17 | disposition home or self-care (01) | DRG 682 ==
LOC: CANRESERV → ENRESERVTM → ENRESERVDT → EDBD 22:46 → C.EDA 22:47 → UNDOADMOB 04-16 01:28 → C.4E 04-16 01:28 → OBSVTOIN 04-16 15:44
PROVIDERS: ADMIT Student in an Organized Health Care Education/Training Program; ATTEND Family Medicine
DX: N17.9 Acute kidney failure, unspecified (principal); G93.41 Metabolic encephalopathy; E46 Unspecified protein-calorie malnutrition; C09.9 Malignant neoplasm of tonsil, unspecified; E87.6 Hypokalemia; I95.9 Hypotension, unspecified; E86.0 Dehydration; E86.1 Hypovolemia; R25.1 Tremor, unspecified; G25.3 Myoclonus; R29.6 Repeated falls; T43.595A Adverse effect of other antipsychotics and neuroleptics, initial encounter; R26.9 Unspecified abnormalities of gait and mobility; D64.9 Anemia, unspecified; K74.60 Unspecified cirrhosis of liver; K21.9 Gastro-esophageal reflux disease without esophagitis; F50.89 Other specified eating disorder; F10.21 Alcohol dependence, in remission; F31.9 Bipolar disorder, unspecified; F06.8 Other specified mental disorders due to known physiological condition; F99 Mental disorder, not otherwise specified; Z68.24 Body mass index [BMI] 24.0-24.9, adult; Z86.19 Personal history of other infectious and parasitic diseases; Z87.891 Personal history of nicotine dependence; Z79.891 Long term (current) use of opiate analgesic; Z79.899 Other long term (current) drug therapy

== ENCOUNTER 2016-07-10 13:27 | Inpatient (IN) | payer OTHER ==
[~2016-07-10] VITALS: Ht 182.9 cm; Wt 85.6 kg
[2016-07-10] MEDS: SODIUM CHLORIDE 0.9% 1000ML 1,000 ML IV SCH ×2 (00:30→16:57)
[~2016-07-10 13:27] MED LIST changes: +CLOT10TR2 MT; -DIPH1TAB PO; +DIPH50TA10 PO; +DULO-24 PO; +FNTTP50 TD; -IBUP-1459 PO; +MAGIC MOUTH WASH PO; +NUTR-977 PO; -OMEP40CA PO; +RISP1TAB3 PO; -RISP3TAB11 PO; -SERT-234 PO; -TRAM-10 PO; +[UNRECOGNIZED DRUG - CODE] PO
[2016-07-10] MEDS ORDERED: SODIUM CHLORIDE 0.9% 1000ML 1,000 ML IV STA ×2 (13:39→14:45)
[2016-07-10] MEDS ORDERED: OXYC-106 PO (14:02)
[2016-07-10] MEDS ORDERED: LIDO2SOL19 TOP (14:06)
[2016-07-10] MEDS ORDERED: MIRT30TA2 PO (14:07)
[2016-07-10] MEDS ORDERED: PRLSR20 PO (14:08)
[2016-07-10] MEDS ORDERED: OMEP20TA PO (14:09)
[2016-07-10] MEDS ORDERED: NEOMOIN76 TOP (14:14)
[2016-07-10] MEDS ORDERED: DRGTP100 TOP (14:17)
[2016-07-10] MEDS ORDERED: HYDR1LOT6 TOP (14:21)
[2016-07-10] MEDS ORDERED: IBUP-1459 PO (14:27)
[2016-07-10] MEDS ORDERED: MAGNESIUM HYDROXIDE SUSP 30 ML UDC PO PRN (15:15)
[2016-07-10] MEDS ORDERED: ALUMINUM/MAGNESIUM/SIMETH (MAALOX MAX) 30 ML UDC PO PRN (15:15)
[2016-07-10] MEDS ORDERED: ONDANSETRON INJ 2 MG/ML 2 ML VIAL IV PRN (15:15)
[2016-07-10] MEDS ORDERED: ACETAMINOPHEN 325 MG TAB PO PRN (15:15)
[2016-07-10] MEDS ORDERED: POLYETHYLENE (MIRALAX) 17 GM PACK PO PRN (15:15)
--- NOTE | 2016-07-10 15:22 | Progress Note ---
Progress Note Date of Service July 10, 2016. Progress Note acute on chronic renal failure, syncope dictated , [phone]
--- NOTE | 2016-07-10 16:20 | HISTORY & PHYSICAL EXAMINATION ---
DATE OF ADMISSION: 07/10/2016 This is a level 3 inpatient admission, 35 minutes. CHIEF COMPLAINT: Syncope. HISTORY OF PRESENT ILLNESS: The patient is a 55-year-old white male came from shelter of [facility], [place] with concern about abnormal labs occurred today. The patient was having lightheadedness which is chronic to him, however today he was feeling worsening lightheadedness when standing up. Reported had some intermittent shortness of breath. Reported has no urine since this morning. He had blood work this morning and was found to have worsening kidney functions with creatinine 5.9. On the way, he received blood work in the morning, he was having syncopal episodes. He passed out in the parking lot. He reported has syncope episodes every day, which has become usual for him. In the ER, creatinine 5.9, BUN 86, GFR 9.8. Platelet level only 66. He got IV fluid in the Emergency Room. When I interviewed with him, he is awake, alert, and orientated, conversational, follows all commands. Head normocephalic. Eyes -- Pupils equal, round responds to light. Ears were normal. Nose was normal. Neck was supple. Denied fever or chills. Denied dysuria, urgency, or frequencies. However, reported has low urine output since this morning. He reported feeling a little bit better in the Emergency Room stay. Otherwise, 14-point organ system review were negative. PAST MEDICAL HISTORY: Like I mentioned in the above include acute kidney failure, altered mental status, bipolar, cirrhosis, mouth cancer and oral cancer. Also has history of tobacco abuse history. SOCIAL HISTORY: Include history of tobacco abuse, alcohol abuse. Former smoker. Denied alcohol abuse disorder, denied illicit drug abuse. FAMILY HISTORY: Noncontributory. MEDICATIONS: Taking at home which include clotrimazole 10 mg p.o. q.i.d., diphenhydramine 50 mg p.o. t.i.d., Cymbalta 60 mg p.o. daily, enteral nutrition formula 1 can p.o. t.i.d., fentanyl patch 100 mcg topical use q. 3 days, hydrocortisone topical use 1 application p.o. t.i.d., magnesium carbonate 150 mg p.o. daily, neomycin bacitracin polymyxin 1 topical use b.i.d., omeprazole 1 mg p.o. b.i.d. Other as needed medications include ibuprofen 400 mg p.o. q.i.d. as needed for the pain, oxycodone/acetaminophen 10/325 one tab p.o. t.i.d. p.r.n. for the pain. The patient has been using Magic Mouthwash as well 10 mL p.o. q.i.d. p.r.n. ALLERGIES: MORPHINE AND UNRELATED MEDICATIONS. PHYSICAL EXAMINATION: VITAL SIGNS: Temperature is 37.5, pulse 100, respiration rate 20, blood pressure 87/50, pulse ox was 95% in room air. GENERAL: The patient is a white male, looks tired and a little bit pale but awake, alert and orientated, conversational, follows all commands. HEAD, EYES, EARS, NOSE, AND THROAT: Eye -- pupils equal, nonresponsive to light. Conjunctivae has no injections. Ear, nose and throat was not remarkable. Mucous membranes normal. LUNGS: Decreased breathing sounds. There was no wheezing, rhonchi or crackles. HEART: Irregularly irregular, S1, S2, has no murmur. ABDOMEN: Soft, nontender. Bowel sound was positive. MUSCULOSKELETAL SYSTEM: There was no peripheral edema. NEUROLOGICAL EVALUATION: Cranial nerve II through XII was intact. There was no focal deficits. PSYCHIATRIC EVALUATION: Normal affect. LABORATORY STUDIES: Done today which include WBC 6.4, RBC 2.4, platelet 66. PT/INR was 12/1.2. BMP: Sodium 140, potassium 3.8, chloride 98. BUN 86, creatinine 5.9. Calcium 8.8, phosphorus 2.3, magnesium 1.6, total bilirubin 1.3, direct bilirubin 1.8. AST, ALT was normal range. UA shows possible UTI. drug screening is pending. Influenzae A and B was negative early this year. ASSESSMENT AND PLAN: A 55-year-old from [facility] has 1. acute on chronic kidney failure associated with syncope. 1. Syncope. I believe the syncope is obviously followup after the patient dehydration and acute kidney failure; therefore the syncope is likely from dehydration. The patient has acute kidney failure from dehydration. 2. History of bipolar on lithium. 3. Liver cirrhosis. 4. History of oral cancer. 5. History of tobacco abuse disorder. PLAN: Because of patient's major condition is dehydration and acute kidney failure we will continue IV fluid. We will hold renal offensive medications. We will check lithium levels and concentrations. Check a bladder scanning. Check bilateral kidney ultrasound. Will keep the patient in the tele monitor floor has continued IV fluid, watch for kidney function. Follow up labs and also electrolytes. Has request Dr. Wells consultation and then will go from there. Other conditions include somehow decreased mental status. I believe he is in the baseline of his mental status. Other medical conditions include bipolar. I will hold Cymbalta for now. GI and DVT prophylaxis is covered. Discussed with patient and family about the care plan. I answered all their questions. STEVIE
--- NOTE | 2016-07-10 16:21 | EMERGENCY ROOM VISIT NOTE ---
History Report prepared by Nasir: Simon Burnette Under the Supervision of: Dr. Michele Polanco M.D. First contact with patient: 13:31 Chief Complaint: ABNORMAL LABS Stated Complaint: CRITICAL LABS History of Present Illness The patient is a 55 year old male [facility] labs occurring today. The patient reports lightheadedness which is chronic for him. He has worsening lightheadedness with standing up. The patient also reports intermittent shortness of breath. He has decreased urination and dark urine occurring for a "long time." On his way to obtain blood work this morning, the patient had a witnessed syncopal episode. He passed out in the parking lot. The patient has a syncopal episode frequently which has been occurring for a long time. The patient's blood work showed creatinine of 5.9, BUN of 86, and platelet count of 66. He was told to return to the Emergency Room. The patient currently denies any pain or complaints. He denies chest pain, abdominal pain, or any other complaints. He has a history of throat cancer and he received chemo. Source of History: patient Onset: today Position: other (global) Symptom Intensity: No pain Quality: other (abnormal labs) Timing: constant Associated Symptoms: + SOB (intermittent), No abdominal pain, No chest pain Review of Systems See HPI for pertinent positives & negatives. A total of 10 systems reviewed and were otherwise negative. Past Medical & Surgical Medical Problems: (1) Acute kidney failure (2) acute on chronic renal failure, syncope (3) Altered mental status (4) Altered mental status (5) Bipolar disorder (6) Cirrhosis (7) Mouth cancer (8) Oral cancer (9) Tobacco abuse Social History Problems: (1) Alcohol abuse Family History Patient reports no known family medical history. Social History Smoking Status: Former Smoker Drug Use: other Marital Status: single Housing Status: other Occupation Status: other Current/Historical Medications Scheduled Clotrimazole (Mycelex), 10 MG MT QID Diphenhydramine Hcl (Sleep) (Diphenhydramine Hcl), 50 MG PO TID Duloxetine HCl (Cymbalta), 60 MG PO DAILY Enteral Nutrition Formula (Ensure Plus Vanilla), 1 CAN PO TID Fentanyl (Fentanyl), 100 MCG TOP Q3D Hydrocortisone (Topical) (Hydrocortisone), 1 APPLN TOP TID Lidocaine Hcl (Mouth-Throat) (Lidocaine Viscous), 10 ML TOP TID [place] Carbonate ([place] Carbonate), 150 MG PO DAILY Mirtazapine Soltab (Remeron Soltab), 30 MG PO HS Neomycin-Bacitracin Zn-Polymyx (Triple Antibiotic), 1 APPLN TOP BID Omeprazole (Omeprazole), 1 TAB PO BID Scheduled PRN Ibuprofen (Motrin), 400 MG PO QID PRN for Pain Oxycodone/Acetaminophen 10MG/325MG (Percocet 10MG/325MG), 3 TABS PO TID PRN for Pain [Magic Mouth Wash], 10 ML PO QID PRN for UNDECIDED Allergies Coded Allergies: Morphine and Related (Verified Allergy, Unknown, UNKNOWN, 06/13/16) Physical Exam Vital Signs Date Time Temp Pulse Resp B/P Pulse Ox O2 Delivery O2 Flow Rate FiO2 07/10/16 15:14 85 20 97/65 96 Room Air 07/10/16 13:37 102 07/10/16 13:34 37.5 100 20 87/60 95 Room Air Physical Exam Constitutional: Hypotensive. Eyes: Pupils are equal round reactive to light. Conjunctiva are noninjected. ENT: Pharynx is clear without erythema or exudate. Mucous membranes are moist. Neck supple without meningeal signs. Respiratory: Clear to auscultation bilaterally. Breath sounds are equal bilaterally. Cardiovascular: Regular rate and rhythm. No rubs or gallops. GI: Soft, nondistended and nontender. Bowel sounds are present. Musculoskeletal: No peripheral edema. No lower extremity tenderness. Integumentary: No cyanosis. Neurological: The patient is awake and alert. Cranial nerves II-XII are intact. Motor is 5 out of 5 all extremities. Sensation is intact to light touch all extremities. Normal speech. Psychiatric: Normal affect. Medical Decision & Procedures Laboratory Results POC troponin is 0. Laboratory results as reviewed by me. Medications Administered Medications (Trade) Dose Ordered Sig/Ivan Route Start Time Stop Time Status Last Admin Dose Admin Sodium Chloride 1,000 ml @ 999 mls/hr Q1H1M STAT IV 07/10/16 13:39 07/10/16 14:39 DC 07/10/16 14:15 999 MLS/HR Sodium Chloride (Nss 1000ml) 1,000 ml @ 125 mls/hr Q8H STAT IV 07/10/16 14:45 07/10/16 22:44 07/10/16 15:39 125 MLS/HR ECG Indication: syncope Rate (beats per minute): 96 Rhythm: normal sinus Findings: no acute ischemic change, no ectopy ED Course 1331: The patient was evaluated in room B05. A complete history and physical exam was performed. 1339: Sodium Chloride 1000 ml @ 999 mls/hr IV 1445: Sodium Chloride 1000 ml @ 125 mls/hr IV. The patient's blood pressure is now 97/65. I discussed test results with the patient. He verbalized agreement of the treatment plan. The patient will be evaluated for further management and care. 1453: I discussed the patient's case with Dr. Serrato, from [facility]. Medical Decision This is a 55-year-old male presents with a single episode and abnormal blood work. Differential diagnosis includes dehydration, orthostatic hypotension, anemia, vasovagal reaction, cardiac, metabolic derangement. I did perform a limited focused review of portions of the patient's old chart on the electronic medical record. The patient had blood work done today which showed hemoglobin of 8.5, platelet count of 66, creatinine of 5.9, and normal potassium. Prior blood work from June shows history of anemia and thrombocytopenia with creatinine of 1.9. I did evaluate the patient as noted above. The patient has no complaints at this time. He is hypotensive. IV access was established. The patient was placed on a continuous fitness assistant. He was given a bolus of normal saline IV. His blood pressure was improved and he was given continued IV fluids. I did order and personally review the patient's 12-lead EKG as described above. I did order and review the patient's blood work as noted in the electronic medical record. POC troponin is 0. I did discuss the test results with the patient. I did recommend hospitalization for further care and evaluation. I did discuss case with the hospitalist and wrapper caser. Consults Time Called: [phone] Consulting Physician: Dr. Serrato, from [facility]. Returned Call: [phone] I discussed the patient's case with Dr. Serrato, from [facility]. Impression Primary Impression: Acute renal failure Additional Impressions: Hypotension Syncope Anemia Thrombocytopenia Scribe Attestation The scribe's documentation has been prepared under my direct and personally reviewed by me in its entirety. I confirm that the note above accurately reflects all work, treatment, procedures, and medical decision making performed by me. Departure Information Dispostion Being Evaluated By Hospitalist Referrals Giovanny VILLA (PCP) Patient Instructions My [facility] Problem Qualifiers Primary Impression: Acute renal failure Acute renal failure type: unspecified Qualified Codes: N17.9 - Acute kidney failure, unspecified Additional Impressions: Hypotension Hypotension type: unspecified hypotension type Qualified Codes: I95.9 - Hypotension, unspecified Syncope Syncope type: unspecified Qualified Codes: R55 - Syncope and collapse Anemia Anemia type: unspecified type Qualified Codes: D64.9 - Anemia, unspecified
[2016-07-10 16:50] VITALS: O2SAT 99
[2016-07-10 17:00] VITALS: BP 122/63; PULSE 75; TEMP 36.8; O2SAT 99
[2016-07-10] MEDS ORDERED: MAGNESIUM SULFATE 1GM / D5W 1 GM in PREMIXED IN D5W 100 ML IV ONE (17:00)
[2016-07-10] MEDS: FENTANYL 100 MCG/HR TDSY TD SCH (17:00)
[2016-07-10 17:10] VITALS: Ht 182.9 cm; Wt 85.6 kg
[2016-07-10] MEDS: OXYCODONE/ACETAMINOPHEN 10/325MG TAB PO PRN (17:12)
[2016-07-10 17:25] LABS: INR 1.2 (0.9-1.1); PROTHROMBIN TIME (PATIENT) 12.7 SECONDS (9.0-12.0)
[2016-07-10 18:27] LABS: URINE APPEARANCE CLEAR (CLEAR); URINE BILIRUBIN NEG (NEG); URINE COLOR YELLOW; URINE NITRITE NEG (NEG); URINE SPECIFIC GRAVITY 1.018 (1.000-1.030); UROBILINOGEN NEG (NEG)
[2016-07-10 18:29] LABS: MANUAL MICROSCOPIC REQUIRED? NO; REVIEW REQ? NO
[2016-07-10 19:40] VITALS: BP 99/61; PULSE 80; TEMP 36.7; O2SAT 95
--- NOTE | 2016-07-10 20:33 | DIAGNOSTIC IMAGING REPORT ---
RENAL ULTRASOUND HISTORY: Renal failure acute on chronic renal failure, syncope COMPARISON: 04/16/2016 FINDINGS: Right kidney: No evidence for hydronephrosis. Mild cortical atrophy maximum dimension 11.0 cm. Moderate scarring of the outer cortical margin Left kidney: Maximum dimension 11.7 cm. No evidence for hydronephrosis. Cortical scarring. Bladder: No bladder wall thickening. The bilateral ureteral jets were identified. IMPRESSION: No evidence renal hydronephrosis. Ultrasound findings suggesting nonobstructive renal insufficiency. note is made of cirrhotic change of the liver and splenomegaly which have been described previously. Electronically signed by: Jered Vazquez M.D. 07/10/2016 8:32 PM Dictated Date/Time: 07/10/2016 8:30 PM
[2016-07-10] MEDS: HYDROCORTISONE 1% OINT 30 GM TUBE EXT SCH (20:48)
[2016-07-10] MEDS: MIRTAZAPINE SOLTAB 15 MG PO SCH (20:49)
[2016-07-10] MEDS: HEPARIN SOD 5000 UNIT/0.5 ML CARP SQ SCH (20:53)
[2016-07-10 23:58] VITALS: BP 101/49; PULSE 70; TEMP 36.6; O2SAT 94
[2016-07-11 03:12] VITALS: BP 112/60; PULSE 73; TEMP 37; O2SAT 93
[2016-07-11] MEDS: OXYCODONE/ACETAMINOPHEN 10/325MG TAB PO PRN ×3 (06:02→15:57)
[2016-07-11 07:54] VITALS: BP 120/74; PULSE 70; TEMP 36.8; O2SAT 96
[2016-07-11] MEDS: CHECK FENTANYL PATCH PLACEMENT SCH ×3 (08:00→15:58)
[2016-07-11 08:09] LABS: HEMATOCRIT 21.6 % (42-52); MEAN CELL VOLUME 94.3 fL (80-100); MEAN CORPUSCULAR HEMOGLOBIN 31.4 pg (25-34); MEAN CORPUSCULAR HGB CONC 33.3 g/dl (32-36); RED BLOOD COUNT 2.29 M/uL (4.7-6.1); WHITE BLOOD COUNT 3.03 K/uL (4.8-10.8)
[2016-07-11 08:12] LABS: PLATELET COUNT 45 K/uL (130-400)
[2016-07-11 08:36] LABS: COMPLETE YES; EOS % 1.7 %; IG% 0.3 %; LYMPH % 11.6 %; LYMPH ABS # 0.35 K/uL (1.2-3.4); MEAN PLATELET VOLUME 10.6 fL (7.4-10.4); MONO % 7.3 %; NEUT % 79.1 %
[2016-07-11 08:42] LABS: CALCIUM 8.2 mg/dl (8.5-10.1)
[2016-07-11 08:46] LABS: CREATININE 4.6 mg/dl (0.60-1.40); POTASSIUM 3.5 mmol/L (3.5-5.1)
[2016-07-11] MEDS: HYDROCORTISONE 1% OINT 30 GM TUBE EXT SCH ×3 (09:00→19:39)
[2016-07-11] MEDS: SODIUM CHLORIDE 0.9% 1000ML 1,000 ML IV SCH ×2 (09:00→19:45)
[2016-07-11] MEDS: HEPARIN SOD 5000 UNIT/0.5 ML CARP SQ SCH ×2 (09:02→19:42)
[2016-07-11 11:39] VITALS: BP 115/65; PULSE 77; TEMP 36.8; O2SAT 96
[2016-07-11 14:43] VITALS: BP 111/87
[2016-07-11 15:29] VITALS: BP 116/73; PULSE 68; TEMP 37; O2SAT 97
--- NOTE | 2016-07-11 17:01 | Nephrology Consultation ---
Nephrology Consultation Date & Providers Date of Consultation: July 11, 2016. Primary Care Provider: Giovanny VILLA Referring Provider: Reason for Consultation Evaluation of acute kidney injury History of Present Illness Mr. Leiva is a 55 year old white male who is seen at the request of Dr. Serrato for evaluation of acute kidney injury. Medical records in the hospital EMR were reviewed today and are summarized as follows: The patient is incarcerated at [facility]. He has a nursing home history of tobacco and alcohol use. Approximately three months ago he developed a sore throat. ENT evaluation revealed the presence of a 4 x 3 cm right tonsillar CA. 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 MRI revealed involvement of regional lymph nodes but no spread to the CREDIT OPERATIONS SPECIALIST, chest, abdomen or bone. Patient was evaluated by Oncology and started on high dose cisplatin therapy. It was recommended that he have a feeding tube placed to ensure adequate nutritional and hydration therapy while on chemotherapy. This has not yet been completed. In 04/19 patient was admitted following a syncopal event. He was found to have JAS. He recovered w / IV hydration. Recently Mr. Leiva had his third dose of Cisplatinum. He subsequently had poor oral intake. He suffered a syncopal episode and was brought to the hospital. His creatinine has risen from 1.0 to 4.6. He has developed marked anemia. Renal US 07/17 is negative for obstruction. 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 Laura Allergies Coded Allergies: Morphine and Related (Verified Allergy, Unknown, UNKNOWN, 06/13/16) Inpatient Medications Current Inpatient Medications Medications (Trade) Dose Ordered Sig/Ivan Route Start Time Stop Time Status Last Admin Dose Admin Heparin Sodium (Porcine) 5000 unit 5,000 unit Q12 SQ 07/10/16 21:00 08/09/16 20:59 Future hold 07/11/16 09:02 5,000 UNIT Sodium Chloride (Nss 1000ml) 1,000 ml @ 150 mls/hr Q6H40M IV 07/10/16 17:00 08/09/16 16:59 07/11/16 09:00 150 MLS/HR Acetaminophen (Tylenol Tab) 650 mg Q4H PRN PO 07/10/16 15:15 08/09/16 15:14 Al Hydrox/Mg Hydrox/Simethicone (Maalox Max Susp) 15 ml Q4H PRN PO 07/10/16 15:15 08/09/16 15:14 Magnesium Hydroxide (Milk Of Magnesia Susp) 30 ml Q12H PRN PO 07/10/16 15:15 08/09/16 15:14 Ondansetron HCl (Zofran Inj) 4 mg Q6H PRN IV 07/10/16 15:15 08/09/16 15:14 Polyethylene (Miralax Powder Packet) 17 gm DAILY PRN PO 07/10/16 15:15 08/09/16 15:14 Fentanyl (Duragesic Patch) 100 mcg Q3D TD 07/10/16 17:00 07/24/16 16:59 Oxycodone/ Acetaminophen (Percocet 10-325MG Tab) 1 tab TID PRN PO 07/10/16 15:15 07/24/16 15:14 07/11/16 15:57 1 TAB Hydrocortisone (Hydrocortisone 1% Oint) 1 appln TID EXT 07/10/16 21:00 08/09/16 20:59 07/10/16 20:48 1 APPLN Mirtazapine (Remeron Solutab) 30 mg HS PO 07/10/16 21:00 08/09/16 20:59 07/10/16 20:49 30 MG Miscellaneous (Fentanyl Patch Remove & Waste) 1 ea Q72H N/A 07/13/16 17:00 08/12/16 16:59 Miscellaneous Information (Check Fentanyl Patch Placement) 1 ea QS N/A 07/11/16 00:00 08/10/16 00:00 07/11/16 15:58 1 EA Family History Patient reports no known family medical history. # Negative for CKD / ESRD Social History Smoking Status: Never Smoker Drug Use: other Marital Status: single Housing Status: other Occupation: other Incarcerated. History of tobacco and alcohol abuse Review of Systems Constitutional: No fever Respiratory: No shortness of breath Cardiovascular: No chest pain Abdomen: No pain Genitourinary - Male: No dysuria, No urinary hesitancy A complete review of systems was performed. Pertinent positives are noted above. All other systems are negative. Physical Exam Date Time Temp Pulse Resp B/P Pulse Ox O2 Delivery O2 Flow Rate FiO2 07/11/16 16:00 Room Air 07/11/16 15:29 37.0 68 18 116/73 97 Room Air 07/11/16 12:00 Room Air 07/11/16 11:39 36.8 77 20 115/65 96 07/11/16 08:00 Room Air 07/11/16 07:54 36.8 70 18 120/74 96 07/11/16 03:12 37.0 73 18 112/60 93 Room Air 07/10/16 23:58 36.6 70 18 101/49 94 Room Air 07/10/16 20:00 Room Air 07/10/16 19:40 36.7 80 22 99/61 95 Room Air 07/10/16 17:10 Room Air 07/10/16 17:00 36.8 75 22 122/63 99 Room Air General Appearance: no apparent distress Head: normocephalic, atraumatic Eyes: PERRL, EOMI Neck: no adenopathy Respiratory/Chest: lungs clear Cardiovascular: regular rate, rhythm Abdomen/GI: normal bowel sounds, non tender, soft Extremities/Musculoskelatal: no calf tenderness, no pedal edema Neurologic/Psych: alert, oriented x 3 Laboratory Results Last 24 Hours Test 07/10/16 17:11 07/10/16 17:55 07/11/16 08:03 Carmen Level < 0.2 mMOL/L Urine Color YELLOW Urine Appearance CLEAR Urine pH 5.0 Urine Specific [place] 1.018 Urine Protein NEG Urine Glucose (UA) NEG Urine Ketones TRACE Urine Occult Blood NEG Urine Nitrite NEG Urine Bilirubin NEG Urine Urobilinogen NEG Urine Leukocyte Esterase NEG White Blood Count 3.03 K/uL Red Blood Count 2.29 M/uL Hemoglobin 7.2 g/dL Hematocrit 21.6 % Mean Corpuscular Volume 94.3 fL Mean Corpuscular Hemoglobin 31.4 pg Mean Corpuscular Hemoglobin Concent 33.3 g/dl Platelet Count 45 K/uL Mean Platelet Volume 10.6 fL Neutrophils (%) (Auto) 79.1 % Lymphocytes (%) (Auto) 11.6 % Monocytes (%) (Auto) 7.3 % Eosinophils (%) (Auto) 1.7 % Basophils (%) (Auto) 0.0 % Neutrophils # (Auto) 2.40 K/uL Lymphocytes # (Auto) 0.35 K/uL Monocytes # (Auto) 0.22 K/uL Eosinophils # (Auto) 0.05 K/uL Basophils # (Auto) 0.00 K/uL RDW Standard Deviation 55.3 fL RDW Coefficient of Variation 17.5 % Immature Granulocyte % (Auto) 0.3 % Immature Granulocyte # (Auto) 0.01 K/uL Red Blood Cell Morphology Unremarkable Sodium Level 141 mmol/L Potassium Level 3.5 mmol/L Chloride Level 104 mmol/L Carbon Dioxide Level 28 mmol/L Anion Gap 9.0 mmol/L Blood Urea Nitrogen 74 mg/dl Creatinine 4.60 mg/dl Est Creatinine Clear Calc Drug Dose 18.7 ml/min Estimated GFR () 15.3 Estimated GFR (Non- 13.2 BUN/Creatinine Ratio 16.0 Random Glucose 95 mg/dl Calcium Level 8.2 mg/dl Impression (1) Acute renal failure (2) Syncope (3) Cirrhosis (4) Bipolar disorder (5) Oral cancer Incarcerated 55 year old white male w/ bipolar disorder, alcoholism and longstanding h/o tobacco abuse. 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 He recently completed high dose cisplatin therapy. Patient now admitted with dehydration, recurrent falls and JAS (creatinine 3.9, baseline 0.8 04/08/16). Renal US is negative for obstruction. Patient has been admitted for IV hydration and ongoing medical management. Recommendations ACUTE KIDNEY INJURY: -- Baseline creatinine was 0.8 (04/08/16) -- Renal US is negative for obstruction -- Agree w/ aggressive hydration using 0.9 NS -- Monitor serial PRP -- Urinalysis was negative for glucosuria BIPOLAR DISORDER: -- Carmen level is low -- Hold lithium until kidney function is near baseline ANEMIA: -- Will check FOBT and iron studies -- Recommend transfusion to keep Hgb > 8.0
--- NOTE | 2016-07-11 17:22 | Hospitalist Progress Note ---
Hospitalist Progress Note Date of Service July 11, 2016. Subjective Pt evaluation today including: conversation w/ patient, physical exam, chart review Voiding: marie catheter in place Medications Medications (Trade) Dose Ordered Sig/Ivan Route Start Time Stop Time Status Last Admin Dose Admin Heparin Sodium (Porcine) (Heparin Sq 5000 Unit/0.5ml) 5,000 unit Q12 SQ 07/10/16 21:00 08/09/16 20:59 Future hold 07/11/16 09:02 5,000 UNIT Hydrocortisone (Hydrocortisone 1% Oint) 1 appln TID EXT 07/10/16 21:00 08/09/16 20:59 07/10/16 20:48 1 APPLN Mirtazapine (Remeron Solutab) 30 mg HS PO 07/10/16 21:00 08/09/16 20:59 07/10/16 20:49 30 MG Miscellaneous Information (Check Fentanyl Patch Placement) 1 ea QS N/A 07/11/16 00:00 08/10/16 00:00 07/11/16 15:58 1 EA Objective Vital Signs Date Time Temp Pulse Resp B/P Pulse Ox O2 Delivery O2 Flow Rate FiO2 07/11/16 16:00 Room Air 07/11/16 15:29 37.0 68 18 116/73 97 Room Air 07/11/16 12:00 Room Air 07/11/16 11:39 36.8 77 20 115/65 96 07/11/16 08:00 Room Air 07/11/16 07:54 36.8 70 18 120/74 96 07/11/16 03:12 37.0 73 18 112/60 93 Room Air 07/10/16 23:58 36.6 70 18 101/49 94 Room Air 07/10/16 20:00 Room Air 07/10/16 19:40 36.7 80 22 99/61 95 Room Air Physical Exam General Appearance: WD/WN Eyes: normal inspection ENT: normal ENT inspection Neck: supple Respiratory/Chest: chest non-tender, lungs clear Cardiovascular: regular rate, rhythm, no edema, no murmur Abdomen: normal bowel sounds, non tender, soft Extremities: normal range of motion, non-tender 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 Skin: normal color Lymphatic: no adenopathy Laboratory Results Last 24 Hours Test 07/10/16 17:55 07/11/16 08:03 Urine Color YELLOW Urine Appearance CLEAR Urine pH 5.0 Urine Specific [place] 1.018 Urine Protein NEG Urine Glucose (UA) NEG Urine Ketones TRACE Urine Occult Blood NEG Urine Nitrite NEG Urine Bilirubin NEG Urine Urobilinogen NEG Urine Leukocyte Esterase NEG White Blood Count 3.03 K/uL Red Blood Count 2.29 M/uL Hemoglobin 7.2 g/dL Hematocrit 21.6 % Mean Corpuscular Volume 94.3 fL Mean Corpuscular Hemoglobin 31.4 pg Mean Corpuscular Hemoglobin Concent 33.3 g/dl Platelet Count 45 K/uL Mean Platelet Volume 10.6 fL Neutrophils (%) (Auto) 79.1 % Lymphocytes (%) (Auto) 11.6 % Monocytes (%) (Auto) 7.3 % Eosinophils (%) (Auto) 1.7 % Basophils (%) (Auto) 0.0 % Neutrophils # (Auto) 2.40 K/uL Lymphocytes # (Auto) 0.35 K/uL Monocytes # (Auto) 0.22 K/uL Eosinophils # (Auto) 0.05 K/uL Basophils # (Auto) 0.00 K/uL RDW Standard Deviation 55.3 fL RDW Coefficient of Variation 17.5 % Immature Granulocyte % (Auto) 0.3 % Immature Granulocyte # (Auto) 0.01 K/uL Red Blood Cell Morphology Unremarkable Sodium Level 141 mmol/L Potassium Level 3.5 mmol/L Chloride Level 104 mmol/L Carbon Dioxide Level 28 mmol/L Anion Gap 9.0 mmol/L Blood Urea Nitrogen 74 mg/dl Creatinine 4.60 mg/dl Est Creatinine Clear Calc Drug Dose 18.7 ml/min Estimated GFR () 15.3 Estimated GFR (Non- 13.2 BUN/Creatinine Ratio 16.0 Random Glucose 95 mg/dl Calcium Level 8.2 mg/dl Assessment and Plan Acute on CKD Continue with IVFs Appreciate Renal input. Likely pre renal azotemia. No evidence of obstruction on Renal Sono Bipolar Hold lithium until renal indices are back at baseline. Hx of oral cancer Undergoing OP chemotherapy with . Anemia appears to be chronic. Will check stool hemeoccult, iron studies, B12, folate.
[2016-07-11] MEDS: MIRTAZAPINE SOLTAB 15 MG PO SCH (19:40)
[2016-07-11 19:52] VITALS: BP 156/79; PULSE 75; TEMP 37; O2SAT 92
[2016-07-12] VITALS (7 sets, daily range): BP systolic 112–145; BP diastolic 58–74; PULSE 66–95; TEMP 36.6–37.3; O2SAT 90–96
[2016-07-12] MEDS: CHECK FENTANYL PATCH PLACEMENT SCH ×4 (00:11→23:21)
[2016-07-12 07:30] LABS: HEMATOCRIT 24.7 % (42-52); MEAN CORPUSCULAR HEMOGLOBIN 31.5 pg (25-34); MEAN CORPUSCULAR HGB CONC 33.2 g/dl (32-36); MEAN PLATELET VOLUME 10.5 fL (7.4-10.4); PLATELET COUNT 74 K/uL (130-400); WHITE BLOOD COUNT 2.62 K/uL (4.8-10.8)
[2016-07-12 07:53] LABS: COMPLETE YES; EOS % 2.3 %; IG% 0.4 %; LYMPH % 19.8 %; LYMPH ABS # 0.52 K/uL (1.2-3.4); MONO % 11.5 %
[2016-07-12 08:04] LABS: BUN/CREATININE RATIO 17.5 (10-20); CALCIUM 8.3 mg/dl (8.5-10.1); CREATININE 3.3 mg/dl (0.60-1.40); POTASSIUM 3.6 mmol/L (3.5-5.1)
[2016-07-12] MEDS: HYDROCORTISONE 1% OINT 30 GM TUBE EXT SCH ×3 (08:34→21:00)
[2016-07-12] MEDS: HEPARIN SOD 5000 UNIT/0.5 ML CARP SQ SCH ×2 (08:35→21:27)
[2016-07-12] MEDS: SODIUM CHLORIDE 0.9% 1000ML 1,000 ML IV SCH ×3 (10:23→23:20)
--- NOTE | 2016-07-12 11:59 | Nephrology Progress Note ---
Nephrology Progress Note Date of Service July 12, 2016. Chief Complaint Evaluation of acute kidney injury Subjective Mr. Vallejo was seen & examined in the PCU this morning. He reports that he is tolerating IV hydration without dyspnea. His urine output has improved. He voices no new medical concerns Review of Systems Constitutional: No fever Cardiovascular: No chest pain Respiratory: No dyspnea at rest Abdomen: No nausea, No pain, No vomiting Extremities: No leg edema A complete review of systems was performed. Pertinent positives are noted above. All other systems are negative. Vital Signs Last 8 Hrs Date Time Temp Pulse Resp B/P Pulse Ox O2 Delivery O2 Flow Rate FiO2 07/12/16 11:30 36.6 72 18 125/65 93 07/12/16 07:45 36.8 66 18 141/69 95 07/12/16 04:00 Room Air I & O 24-Hour Column 07/12/16 07:59 Intake Total 4615 ml Output Total 1475 ml Balance 3140 ml Last Recorded Weight Weight (Kilograms): 78.400 Physical Exam General Appearance: no apparent distress Head: atraumatic Eyes: PERRL, EOMI Neck: no adenopathy Respiratory/Chest: lungs clear Cardiovascular: regular rate, rhythm Abdomen/GI: normal bowel sounds, non tender, soft Extremities/Musculoskelatal: no calf tenderness, no pedal edema Neurologic/Psych: alert, oriented x 3 Family History Patient reports no known family medical history. # Negative for CKD / ESRD Social History Drug Use: other Marital Status: single Housing Status: other Occupation: other Incarcerated. History of tobacco and alcohol abuse Laboratory Results Past 24 Hours 07/12/16 06:46 Red Blood Count 2.60, Mean Corpuscular Volume 95.0, Mean Corpuscular Hemoglobin 31.5, Mean Corpuscular Hemoglobin Concent 33.2, Mean Platelet Volume 10.5, Neutrophils (%) (Auto) 66.0, Lymphocytes (%) (Auto) 19.8, Monocytes (%) (Auto) 11.5, Eosinophils (%) (Auto) 2.3, Basophils (%) (Auto) 0.0, Neutrophils # (Auto ) 1.73, Lymphocytes # (Auto) 0.52, Monocytes # (Auto) 0.30, Eosinophils # (Auto ) 0.06, Basophils # (Auto) 0.00 07/12/16 06:46 Test 07/12/16 04:46 07/12/16 06:46 Urine Random Creatinine 15.0 mg/dl Urine Random Sodium 9 mEq/L White Blood Count 2.62 K/uL (4.8-10.8) Red Blood Count 2.60 M/uL (4.7-6.1) Hemoglobin 8.2 g/dL (14.0-18.0) Hematocrit 24.7 % (42-52) Mean Corpuscular Volume 95.0 fL (80-100) Mean Corpuscular Hemoglobin 31.5 pg (25-34) Mean Corpuscular Hemoglobin Concent 33.2 g/dl (32-36) Platelet Count 74 K/uL (130-400) Mean Platelet Volume 10.5 fL (7.4-10.4) Neutrophils (%) (Auto) 66.0 % Lymphocytes (%) (Auto) 19.8 % Monocytes (%) (Auto) 11.5 % Eosinophils (%) (Auto) 2.3 % Basophils (%) (Auto) 0.0 % Neutrophils # (Auto) 1.73 K/uL (1.4-6.5) Lymphocytes # (Auto) 0.52 K/uL (1.2-3.4) Monocytes # (Auto) 0.30 K/uL (0.11-0.59) Eosinophils # (Auto) 0.06 K/uL (0-0.5) Basophils # (Auto) 0.00 K/uL (0-0.2) RDW Standard Deviation 55.2 fL (36.4-46.3) RDW Coefficient of Variation 17.8 % (11.5-14.5) Immature Granulocyte % (Auto) 0.4 % Immature Granulocyte # (Auto) 0.01 K/uL (0.00-0.02) Red Blood Cell Morphology Unremarkable Anion Gap 7.0 mmol/L (3-11) Est Creatinine Clear Calc Drug Dose 27.4 ml/min Estimated GFR () 22.9 Estimated GFR (Non- 19.8 BUN/Creatinine Ratio 17.5 (10-20) Calcium Level 8.3 mg/dl (8.5-10.1) Iron Level 57 mcg/dl (35-175) Total Iron Binding Capacity 180 mcg/dl (250-450) Transferrin 151 mg/dl (200-360) Transferrin % Saturation 27 % (20-50) Ferritin 582.0 ng/ml (8.0-388.0) Vitamin B12 Level 881 pg/mL (211-911) Folate 2.44 ng/mL (>5.38) Allergies Coded Allergies: Morphine and Related (Verified Allergy, Unknown, UNKNOWN, 06/13/16) Medications Current Inpatient Medications Medications (Trade) Dose Ordered Sig/Ivan Route Start Time Stop Time Status Last Admin Dose Admin Heparin Sodium (Porcine) 5000 unit 5,000 unit Q12 SQ 07/10/16 21:00 08/09/16 20:59 Future hold 07/12/16 08:35 5,000 UNIT Sodium Chloride (Nss 1000ml) 1,000 ml @ 150 mls/hr Q6H40M IV 07/10/16 17:00 08/09/16 16:59 07/12/16 10:23 150 MLS/HR Acetaminophen (Tylenol Tab) 650 mg Q4H PRN PO 07/10/16 15:15 08/09/16 15:14 Al Hydrox/Mg Hydrox/Simethicone (Maalox Max Susp) 15 ml Q4H PRN PO 07/10/16 15:15 08/09/16 15:14 Magnesium Hydroxide (Milk Of Magnesia Susp) 30 ml Q12H PRN PO 07/10/16 15:15 08/09/16 15:14 Ondansetron HCl (Zofran Inj) 4 mg Q6H PRN IV 07/10/16 15:15 08/09/16 15:14 Polyethylene (Miralax Powder Packet) 17 gm DAILY PRN PO 07/10/16 15:15 08/09/16 15:14 Fentanyl (Duragesic Patch) 100 mcg Q3D TD 07/10/16 17:00 07/24/16 16:59 Oxycodone/ Acetaminophen (Percocet 10-325MG Tab) 1 tab TID PRN PO 07/10/16 15:15 07/24/16 15:14 07/11/16 15:57 1 TAB Hydrocortisone (Hydrocortisone 1% Oint) 1 appln TID EXT 07/10/16 21:00 08/09/16 20:59 07/12/16 08:34 1 APPLN Mirtazapine (Remeron Solutab) 30 mg HS PO 07/10/16 21:00 08/09/16 20:59 07/11/16 19:40 30 MG Miscellaneous (Fentanyl Patch Remove & Waste) 1 ea Q72H N/A 07/13/16 17:00 08/12/16 16:59 Miscellaneous Information (Check Fentanyl Patch Placement) 1 ea QS N/A 07/11/16 00:00 08/10/16 00:00 07/12/16 08:00 1 EA Impression (1) Acute renal failure (2) Syncope (3) Cirrhosis (4) Bipolar disorder (5) Oral cancer Incarcerated 55 year old white male w/ bipolar disorder, alcoholism and longstanding h/o tobacco abuse. 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 He recently completed high dose cisplatin therapy. Patient now admitted with dehydration, recurrent falls and JAS (creatinine 3.9, baseline 0.8 04/08/16). Renal US is negative for obstruction. Patient has been admitted for IV hydration and ongoing medical management. Recommendations ACUTE KIDNEY INJURY: -- Baseline creatinine was 0.8 (04/08/16) -- Renal US is negative for obstruction -- FENA 1.3%. Creatinine is trending down w/ IV hydration. No evidence of volume overload at this time. Continue IV hydration -- Monitor serial PRP -- Urinalysis was negative for glucosuria BIPOLAR DISORDER: -- [place] level is low -- Hold lithium until kidney function is near baseline ANEMIA: -- Will check FOBT -- Iron saturation is only 27% w/ ferritin 582. Will schedule IV iron therapy -- Monitor serial H&H
--- NOTE | 2016-07-12 17:18 | Hospitalist Progress Note ---
Hospitalist Progress Note Date of Service July 12, 2016. Subjective Pt evaluation today including: conversation w/ patient, chart review Objective Vital Signs Date Time Temp Pulse Resp B/P Pulse Ox O2 Delivery O2 Flow Rate FiO2 07/12/16 07:45 36.8 66 18 141/69 95 07/12/16 04:00 Room Air 07/12/16 03:37 36.6 69 18 145/74 93 Room Air 07/12/16 00:11 37.1 82 18 124/58 92 Room Air 07/12/16 00:00 Room Air 07/11/16 20:00 Room Air 07/11/16 19:52 37.0 75 18 156/79 92 Room Air 07/11/16 16:00 Room Air 07/11/16 15:29 37.0 68 18 116/73 97 Room Air 07/11/16 12:00 Room Air 07/11/16 11:39 36.8 77 20 115/65 96 Physical Exam General Appearance: WD/WN Eyes: normal inspection ENT: normal ENT inspection Neck: supple Respiratory/Chest: chest non-tender, normal breath sounds Cardiovascular: regular rate, rhythm, no edema, no gallop, no murmur Abdomen: normal bowel sounds, non tender, soft Extremities: normal range of motion Neurologic/Psychiatric: diamond sizer and grader II-XII nml as tested, alert, oriented x 3 Skin: normal color Laboratory Results Last 24 Hours Test 07/12/16 04:46 07/12/16 06:46 Urine Random Creatinine 15.0 mg/dl Urine Random Sodium 9 mEq/L White Blood Count 2.62 K/uL Red Blood Count 2.60 M/uL Hemoglobin 8.2 g/dL Hematocrit 24.7 % Mean Corpuscular Volume 95.0 fL Mean Corpuscular Hemoglobin 31.5 pg Mean Corpuscular Hemoglobin Concent 33.2 g/dl Platelet Count 74 K/uL Mean Platelet Volume 10.5 fL Neutrophils (%) (Auto) 66.0 % Lymphocytes (%) (Auto) 19.8 % Monocytes (%) (Auto) 11.5 % Eosinophils (%) (Auto) 2.3 % Basophils (%) (Auto) 0.0 % Neutrophils # (Auto) 1.73 K/uL Lymphocytes # (Auto) 0.52 K/uL Monocytes # (Auto) 0.30 K/uL Eosinophils # (Auto) 0.06 K/uL Basophils # (Auto) 0.00 K/uL RDW Standard Deviation 55.2 fL RDW Coefficient of Variation 17.8 % Immature Granulocyte % (Auto) 0.4 % Immature Granulocyte # (Auto) 0.01 K/uL Red Blood Cell Morphology Unremarkable Sodium Level 143 mmol/L Potassium Level 3.6 mmol/L Chloride Level 108 mmol/L Carbon Dioxide Level 28 mmol/L Anion Gap 7.0 mmol/L Blood Urea Nitrogen 58 mg/dl Creatinine 3.30 mg/dl Est Creatinine Clear Calc Drug Dose 27.4 ml/min Estimated GFR () 22.9 Estimated GFR (Non- 19.8 BUN/Creatinine Ratio 17.5 Random Glucose 93 mg/dl Calcium Level 8.3 mg/dl Iron Level 57 mcg/dl Total Iron Binding Capacity 180 mcg/dl Transferrin 151 mg/dl Transferrin % Saturation 27 % Ferritin 582.0 ng/ml Assessment and Plan Acute on CKD Continue with IVFs. Improved renal indices Appreciate Renal input. Likely pre renal azotemia. No evidence of obstruction on Renal Sono Bipolar Hold lithium until renal indices are back at baseline. Hx of oral cancer Undergoing OP chemotherapy with . Anemia appears to be chronic. Will check stool hemeoccult, iron studies, B12, folate. Folate deficiency Replete folate Iron deficiency Replete Fe per Renal recommendations
[2016-07-12] MEDS: MIRTAZAPINE SOLTAB 15 MG PO SCH (21:21)
[2016-07-12] MEDS: OXYCODONE/ACETAMINOPHEN 10/325MG TAB PO PRN (23:20)
[2016-07-13] VITALS (10 sets, daily range): BP systolic 106–135; BP diastolic 59–75; PULSE 61–82; TEMP 36.8–37.4; O2SAT 92–98
[2016-07-13] MEDS: SODIUM CHLORIDE 0.9% 1000ML 1,000 ML IV SCH (05:09)
[2016-07-13] MEDS: CHECK FENTANYL PATCH PLACEMENT SCH ×3 (07:42→23:46)
[2016-07-13] MEDS: HYDROCORTISONE 1% OINT 30 GM TUBE EXT SCH ×3 (07:42→20:38)
[2016-07-13 08:23] LABS: BUN/CREATININE RATIO 19.3 (10-20); CREATININE 2.5 mg/dl (0.60-1.40); POTASSIUM 3.3 mmol/L (3.5-5.1)
[2016-07-13 08:28] LABS: CALCIUM 8.3 mg/dl (8.5-10.1)
[2016-07-13] MEDS: IRON SUCROSE INJ 100 MG in SODIUM CHLORIDE 0.9% 100ML 100 ML IV SCH (09:04)
[2016-07-13] MEDS: OXYCODONE/ACETAMINOPHEN 10/325MG TAB PO PRN ×2 (09:08→15:03)
[2016-07-13] MEDS: HEPARIN SOD 5000 UNIT/0.5 ML CARP SQ SCH ×2 (09:08→20:38)
[2016-07-13 09:24] LABS: MEAN CELL VOLUME 95.7 fL (80-100); MEAN CORPUSCULAR HEMOGLOBIN 34.4 pg (25-34); MEAN PLATELET VOLUME 9.5 fL (7.4-10.4); PLATELET COUNT 71 K/uL (130-400); RED BLOOD COUNT 2.09 M/uL (4.7-6.1); WHITE BLOOD COUNT 1.38 K/uL (4.8-10.8)
[2016-07-13 09:31] LABS: BASO % 0.7 %; BASO ABS # 0.01 K/uL (0-0.2); COMPLETE YES; EOS % 3.6 %; IG% 1.4 %; LYMPH % 34.1 %; LYMPH ABS # 0.47 K/uL (1.2-3.4); MONO % 20.3 %; NEUT % 39.9 %; OVALOCYTES 1+; PLT ESTIMATE DECREASED
[2016-07-13] MEDS: SODIUM CHLORIDE 0.45% 1000ML 1,000 ML IV SCH ×3 (10:20→22:00)
[2016-07-13] MEDS ORDERED: POTASSIUM CHLORIDE 10 MEQ TABCR PO ONE (10:30)
--- NOTE | 2016-07-13 12:56 | Nephrology Progress Note ---
Nephrology Progress Note Date of Service July 13, 2016. Chief Complaint Follow-up for acute kidney injury Subjective Brandon was seen and examined in his room this morning with security personnel in the room. He was lying in bed, seems comfortable, otherwise feeling fine and denies any shortness of breath or chest pain. He has been having decent urine output. Blood pressure stable. Renal function improve significantly to creatinine of OM 2.5 this morning. However his serum sodium elevated at 147 and potassium low at 3.3. Review of Systems A complete review of systems was performed. Pertinent positives are noted above. All other systems are negative. Vital Signs Last 8 Hrs Date Time Temp Pulse Resp B/P Pulse Ox O2 Delivery O2 Flow Rate FiO2 07/13/16 12:00 Room Air 07/13/16 11:46 37.2 73 18 112/64 96 Room Air 07/13/16 08:00 Room Air 07/13/16 07:48 36.8 68 18 109/59 93 Room Air I & O 24-Hour Column 07/13/16 08:00 Intake Total 3804 ml Output Total 1175 ml Balance 2629 ml Last Recorded Weight Weight (Kilograms): 78.400 Physical Exam GENERAL: middle aged male, AAA x 3, pleasant, healthy-appearing, not in any distress. NECK: Supple, no JVD. RESPIRATORY: Normal breathing efforts, no accessory muscle use, clear to auscultation bilaterally, no wheezes or rales. CARDIOVASCULAR: S1, S2 normal, rate rhythm regular. EXTREMITY: No lower extremity edema NEURO: speech fluent. PSYCHIATRY: Normal mood and judgment Family History Patient reports no known family medical history. # Negative for CKD / ESRD Social History Drug Use: other Marital Status: single Housing Status: other Occupation: other Incarcerated. History of tobacco and alcohol abuse Laboratory Results Past 24 Hours 07/13/16 07:30 Red Blood Count 2.09, Mean Corpuscular Volume 95.7, Mean Corpuscular Hemoglobin 34.4, Mean Corpuscular Hemoglobin Concent 36.0, Mean Platelet Volume 9.5, Neutrophils (%) (Auto) 39.9, Lymphocytes (%) (Auto) 34.1, Monocytes (%) (Auto) 20.3, Eosinophils (%) (Auto) 3.6, Basophils (%) (Auto) 0.7, Neutrophils # (Auto ) 0.55, Lymphocytes # (Auto) 0.47, Monocytes # (Auto) 0.28, Eosinophils # (Auto ) 0.05, Basophils # (Auto) 0.01 07/13/16 07:30 Test 07/13/16 07:30 White Blood Count 1.38 K/uL (4.8-10.8) Red Blood Count 2.09 M/uL (4.7-6.1) Hemoglobin 7.2 g/dL (14.0-18.0) Hematocrit 20.0 % (42-52) Mean Corpuscular Volume 95.7 fL (80-100) Mean Corpuscular Hemoglobin 34.4 pg (25-34) Mean Corpuscular Hemoglobin Concent 36.0 g/dl (32-36) Platelet Count 71 K/uL (130-400) Mean Platelet Volume 9.5 fL (7.4-10.4) Neutrophils (%) (Auto) 39.9 % Lymphocytes (%) (Auto) 34.1 % Monocytes (%) (Auto) 20.3 % Eosinophils (%) (Auto) 3.6 % Basophils (%) (Auto) 0.7 % Neutrophils # (Auto) 0.55 K/uL (1.4-6.5) Lymphocytes # (Auto) 0.47 K/uL (1.2-3.4) Monocytes # (Auto) 0.28 K/uL (0.11-0.59) Eosinophils # (Auto) 0.05 K/uL (0-0.5) Basophils # (Auto) 0.01 K/uL (0-0.2) RDW Standard Deviation 59.3 fL (36.4-46.3) RDW Coefficient of Variation 18.3 % (11.5-14.5) Immature Granulocyte % (Auto) 1.4 % Immature Granulocyte # (Auto) 0.02 K/uL (0.00-0.02) Platelet Estimate DECREASED Ovalocytes 1+ Anion Gap 8.0 mmol/L (3-11) Est Creatinine Clear Calc Drug Dose 36.2 ml/min Estimated GFR () 32.1 Estimated GFR (Non- 27.7 BUN/Creatinine Ratio 19.3 (10-20) Calcium Level 8.3 mg/dl (8.5-10.1) Allergies Coded Allergies: Morphine and Related (Verified Allergy, Unknown, UNKNOWN, 06/13/16) Medications Current Inpatient Medications Medications (Trade) Dose Ordered Sig/Ivan Route Start Time Stop Time Status Last Admin Dose Admin Heparin Sodium (Porcine) (Heparin Sq 5000 Unit/0.5ml) 5,000 unit Q12 SQ 07/10/16 21:00 08/09/16 20:59 Future hold 07/13/16 09:08 5,000 UNIT Acetaminophen (Tylenol Tab) 650 mg Q4H PRN PO 07/10/16 15:15 08/09/16 15:14 Al Hydrox/Mg Hydrox/Simethicone (Maalox Max Susp) 15 ml Q4H PRN PO 07/10/16 15:15 08/09/16 15:14 Magnesium Hydroxide (Milk Of Magnesia Susp) 30 ml Q12H PRN PO 07/10/16 15:15 08/09/16 15:14 Ondansetron HCl (Zofran Inj) 4 mg Q6H PRN IV 07/10/16 15:15 08/09/16 15:14 Polyethylene (Miralax Powder Packet) 17 gm DAILY PRN PO 07/10/16 15:15 08/09/16 15:14 Fentanyl (Duragesic Patch) 100 mcg Q3D TD 07/10/16 17:00 07/24/16 16:59 Oxycodone/ Acetaminophen (Percocet 10-325MG Tab) 1 tab TID PRN PO 07/10/16 15:15 07/24/16 15:14 07/13/16 09:08 1 TAB Hydrocortisone (Hydrocortisone 1% Oint) 1 appln TID EXT 07/10/16 21:00 08/09/16 20:59 07/12/16 14:27 1 APPLN Mirtazapine (Remeron Solutab) 30 mg HS PO 07/10/16 21:00 08/09/16 20:59 07/12/16 21:21 30 MG Miscellaneous (Fentanyl Patch Remove & Waste) 1 ea Q72H N/A 07/13/16 17:00 08/12/16 16:59 Miscellaneous Information 1 ea 1 ea QS N/A 07/11/16 00:00 08/10/16 00:00 07/13/16 07:42 1 EA Iron Sucrose/ Sodium Chloride (Venofer Inj/Nss 100ml) 105 ml @ 420 mls/hr DAILY@0800 IV 07/13/16 08:00 07/22/16 08:14 07/13/16 09:04 420 MLS/HR Folic Acid 1 mg 1 mg QAM PO 07/13/16 09:00 08/12/16 08:59 07/13/16 09:05 1 MG Sodium Chloride (1/2 Nss 1000ml) 1,000 ml @ 125 mls/hr Q8H IV 07/13/16 10:00 08/12/16 09:59 07/13/16 10:20 125 MLS/HR Impression (1) Acute renal failure (2) Syncope (3) Cirrhosis (4) Bipolar disorder (5) Oral cancer Incarcerated 55 year old white male w/ bipolar disorder, alcoholism and longstanding h/o tobacco abuse. 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 He recently completed high dose cisplatin therapy. Patient now admitted with dehydration, recurrent falls and JAS (creatinine 3.9, baseline 0.8 04/08/16). Renal US is negative for obstruction. Patient has been admitted for IV hydration and ongoing medical management. Recommendations ACUTE KIDNEY INJURY: -- renal function started to improve, creatinine was 2.5 this morning. Expect renal function continued to improve with volume repletion and hemodynamics support. -- Baseline creatinine was 0.8 (04/08/16) -- Renal US is negative for obstruction -- FENA 1.3%. Creatinine is trending down w/ IV hydration. No evidence of volume overload at this time. Continue IV hydration -- Monitor serial PRP -- Urinalysis was negative for glucosuria # hypokalemia: -- With renal loss, replace with KCl 40 mEq x1 dose # hypernatremia: with free water deficit and normal saline --Change IV fluid to 1/2 NS BIPOLAR DISORDER: -- [place] level is low -- Hold lithium until kidney function is near baseline ANEMIA: -- Will check FOBT -- Iron saturation is only 27% w/ ferritin 582. Will schedule IV iron therapy -- Monitor serial H&H
--- NOTE | 2016-07-13 14:22 | Hospitalist Progress Note ---
Hospitalist Progress Note Date of Service July 13, 2016. Subjective Pt evaluation today including: conversation w/ patient, chart review, conversation w/ telecom sales consultant Taking POs. No CP or SOB. Denies fevers. Medications Medications (Trade) Dose Ordered Sig/Ivan Route Start Time Stop Time Status Last Admin Dose Admin Iron Sucrose/ Sodium Chloride (Venofer Inj/Nss 100ml) 105 ml @ 420 mls/hr DAILY@0800 IV 07/13/16 08:00 07/22/16 08:14 07/13/16 09:04 420 MLS/HR Folic Acid 1 mg 1 mg QAM PO 07/13/16 09:00 08/12/16 08:59 07/13/16 09:05 1 MG Sodium Chloride (1/2 Nss 1000ml) 1,000 ml @ 125 mls/hr Q8H IV 07/13/16 10:00 08/12/16 09:59 07/13/16 10:20 125 MLS/HR Potassium Chloride (Klor-Con M10) 40 meq NOW ONCE PO 07/13/16 10:30 07/13/16 10:31 DC 07/13/16 10:21 40 MEQ Objective Vital Signs Date Time Temp Pulse Resp B/P Pulse Ox O2 Delivery O2 Flow Rate FiO2 07/13/16 12:00 Room Air 07/13/16 11:46 37.2 73 18 112/64 96 Room Air 07/13/16 08:00 Room Air 07/13/16 07:48 36.8 68 18 109/59 93 Room Air 07/13/16 04:00 Room Air 07/13/16 03:00 37.4 82 19 116/63 92 Room Air 07/13/16 00:00 Room Air 07/12/16 22:58 37.3 95 18 112/65 90 Room Air 07/12/16 20:00 Room Air 07/12/16 19:18 37.3 78 18 120/71 94 Room Air 07/12/16 16:16 36.8 87 18 118/70 96 Room Air 07/12/16 16:00 Room Air Physical Exam General Appearance: WD/WN Eyes: normal inspection ENT: normal ENT inspection Neck: supple, no adenopathy Respiratory/Chest: chest non-tender, lungs clear Cardiovascular: regular rate, rhythm, no edema Abdomen: normal bowel sounds, non tender, soft Extremities: normal range of motion Neurologic/Psychiatric: railcar switcher II-XII nml as tested, alert, oriented x 3 Laboratory Results Last 24 Hours Test 07/13/16 07:30 White Blood Count 1.38 K/uL Red Blood Count 2.09 M/uL Hemoglobin 7.2 g/dL Hematocrit 20.0 % Mean Corpuscular Volume 95.7 fL Mean Corpuscular Hemoglobin 34.4 pg Mean Corpuscular Hemoglobin Concent 36.0 g/dl Platelet Count 71 K/uL Mean Platelet Volume 9.5 fL Neutrophils (%) (Auto) 39.9 % Lymphocytes (%) (Auto) 34.1 % Monocytes (%) (Auto) 20.3 % Eosinophils (%) (Auto) 3.6 % Basophils (%) (Auto) 0.7 % Neutrophils # (Auto) 0.55 K/uL Lymphocytes # (Auto) 0.47 K/uL Monocytes # (Auto) 0.28 K/uL Eosinophils # (Auto) 0.05 K/uL Basophils # (Auto) 0.01 K/uL RDW Standard Deviation 59.3 fL RDW Coefficient of Variation 18.3 % Immature Granulocyte % (Auto) 1.4 % Immature Granulocyte # (Auto) 0.02 K/uL Platelet Estimate DECREASED Ovalocytes 1+ Sodium Level 147 mmol/L Potassium Level 3.3 mmol/L Chloride Level 113 mmol/L Carbon Dioxide Level 26 mmol/L Anion Gap 8.0 mmol/L Blood Urea Nitrogen 48 mg/dl Creatinine 2.50 mg/dl Est Creatinine Clear Calc Drug Dose 36.2 ml/min Estimated GFR () 32.1 Estimated GFR (Non- 27.7 BUN/Creatinine Ratio 19.3 Random Glucose 81 mg/dl Calcium Level 8.3 mg/dl Assessment and Plan Acute on CKD Continue with IVFs. Improved renal indices Appreciate Renal input. Likely pre renal azotemia. No evidence of obstruction on Renal Sono Bipolar Hold lithium until renal indices are back at baseline. Hx of oral cancer Undergoing treatment as OP with . Given neutropenia will consult Hematology. Anemia appears to be chronic. Stool hemeoccult pending. Low folate levels noted and pt started on folate supplementation Will transfuse with one unit prbc. Folate deficiency Replete folate Iron deficiency Replete Fe per Renal recommendations
[2016-07-13] MEDS: FENTANYL 100 MCG/HR TDSY TD SCH (16:38)
[2016-07-13] MEDS ORDERED: FENTANYL PATCH REMOVE & WASTE SCH (17:00)
[2016-07-13] MEDS: MIRTAZAPINE SOLTAB 15 MG PO SCH (20:33)
[2016-07-14] MEDS: OXYCODONE/ACETAMINOPHEN 10/325MG TAB PO PRN ×4 (00:11→20:38)
[2016-07-14 03:21] VITALS: BP 116/66; PULSE 69; TEMP 37.1; O2SAT 94
[2016-07-14 07:06] LABS: HEMATOCRIT 23.4 % (42-52); MEAN CELL VOLUME 94.4 fL (80-100); MEAN CORPUSCULAR HEMOGLOBIN 33.1 pg (25-34); MEAN PLATELET VOLUME 9.2 fL (7.4-10.4); PLATELET COUNT 69 K/uL (130-400); RED BLOOD COUNT 2.48 M/uL (4.7-6.1); WHITE BLOOD COUNT 1.43 K/uL (4.8-10.8)
[2016-07-14 07:28] LABS: BASO % 0.7 %; BASO ABS # 0.01 K/uL (0-0.2); COMPLETE YES; EOS % 3.5 %; IG% 4.2 %; LARGE PLATELETS 1+; LYMPH % 37.1 %; LYMPH ABS # 0.53 K/uL (1.2-3.4); NEUT % 33.5 %; OVALOCYTES 1+
[2016-07-14 07:40] VITALS: BP 138/75; PULSE 66; TEMP 37.1; O2SAT 95
[2016-07-14 07:40] LABS: BUN/CREATININE RATIO 18.6 (10-20); CALCIUM 7.6 mg/dl (8.5-10.1); CREATININE 2.1 mg/dl (0.60-1.40); POTASSIUM 3.6 mmol/L (3.5-5.1)
[2016-07-14] MEDS: CHECK FENTANYL PATCH PLACEMENT SCH ×2 (08:17→15:42)
[2016-07-14] MEDS: IRON SUCROSE INJ 100 MG in SODIUM CHLORIDE 0.9% 100ML 100 ML IV SCH (08:17)
[2016-07-14] MEDS: HYDROCORTISONE 1% OINT 30 GM TUBE EXT SCH ×3 (08:17→20:29)
[2016-07-14] MEDS: HEPARIN SOD 5000 UNIT/0.5 ML CARP SQ SCH ×2 (08:19→20:42)
[2016-07-14] MEDS: SODIUM CHLORIDE 0.45% 1000ML 1,000 ML IV SCH ×2 (08:20→15:44)
--- NOTE | 2016-07-14 09:52 | Nephrology Progress Note ---
Nephrology Progress Note Date of Service July 14, 2016. Chief Complaint Follow-up for acute kidney injury Subjective Brandon was seen and examined in his room this morning with security personnel in the room. He was lying in bed, seems comfortable, otherwise feeling fine and denies any shortness of breath or chest pain. He has been having decent urine output. Blood pressure stable. Renal function continues to improve,creatinine 2.1 this morning. serum sodium normalized to 145.. Review of Systems A complete review of systems was performed. Pertinent positives are noted above. All other systems are negative. Vital Signs Last 8 Hrs Date Time Temp Pulse Resp B/P Pulse Ox O2 Delivery O2 Flow Rate FiO2 07/14/16 07:40 37.1 66 17 138/75 95 Room Air 07/14/16 04:00 Room Air 07/14/16 03:21 37.1 69 18 116/66 94 Room Air I & O 24-Hour Column 07/14/16 07:59 Intake Total 4729 ml Output Total 250 ml Balance 4479 ml Last Recorded Weight Weight (Kilograms): 80.800 Physical Exam GENERAL: middle aged male, AAA x 3, pleasant, healthy-appearing, not in any distress. NECK: Supple, no JVD. RESPIRATORY: Normal breathing efforts, no accessory muscle use, clear to auscultation bilaterally, no wheezes or rales. CARDIOVASCULAR: S1, S2 normal, rate rhythm regular. EXTREMITY: No lower extremity edema NEURO: speech fluent. PSYCHIATRY: Normal mood and judgment Family History Patient reports no known family medical history. # Negative for CKD / ESRD Social History Drug Use: other Marital Status: single Housing Status: other Occupation: other Incarcerated. History of tobacco and alcohol abuse Laboratory Results Past 24 Hours 07/14/16 06:50 Red Blood Count 2.48, Mean Corpuscular Volume 94.4, Mean Corpuscular Hemoglobin 33.1, Mean Corpuscular Hemoglobin Concent 35.0, Mean Platelet Volume 9.2, Neutrophils (%) (Auto) 33.5, Lymphocytes (%) (Auto) 37.1, Monocytes (%) (Auto) 21.0, Eosinophils (%) (Auto) 3.5, Basophils (%) (Auto) 0.7, Neutrophils # (Auto ) 0.48, Lymphocytes # (Auto) 0.53, Monocytes # (Auto) 0.30, Eosinophils # (Auto ) 0.05, Basophils # (Auto) 0.01 07/14/16 06:50 Test 07/14/16 06:50 White Blood Count 1.43 K/uL (4.8-10.8) Red Blood Count 2.48 M/uL (4.7-6.1) Hemoglobin 8.2 g/dL (14.0-18.0) Hematocrit 23.4 % (42-52) Mean Corpuscular Volume 94.4 fL (80-100) Mean Corpuscular Hemoglobin 33.1 pg (25-34) Mean Corpuscular Hemoglobin Concent 35.0 g/dl (32-36) Platelet Count 69 K/uL (130-400) Mean Platelet Volume 9.2 fL (7.4-10.4) Neutrophils (%) (Auto) 33.5 % Lymphocytes (%) (Auto) 37.1 % Monocytes (%) (Auto) 21.0 % Eosinophils (%) (Auto) 3.5 % Basophils (%) (Auto) 0.7 % Neutrophils # (Auto) 0.48 K/uL (1.4-6.5) Lymphocytes # (Auto) 0.53 K/uL (1.2-3.4) Monocytes # (Auto) 0.30 K/uL (0.11-0.59) Eosinophils # (Auto) 0.05 K/uL (0-0.5) Basophils # (Auto) 0.01 K/uL (0-0.2) RDW Standard Deviation 62.0 fL (36.4-46.3) RDW Coefficient of Variation 18.9 % (11.5-14.5) Immature Granulocyte % (Auto) 4.2 % Immature Granulocyte # (Auto) 0.06 K/uL (0.00-0.02) Large Platelets 1+ Ovalocytes 1+ Anion Gap 9.0 mmol/L (3-11) Est Creatinine Clear Calc Drug Dose 43.1 ml/min Estimated GFR () 39.6 Estimated GFR (Non- 34.2 BUN/Creatinine Ratio 18.6 (10-20) Calcium Level 7.6 mg/dl (8.5-10.1) Allergies Coded Allergies: Morphine and Related (Verified Allergy, Unknown, UNKNOWN, 06/13/16) Medications Current Inpatient Medications Medications (Trade) Dose Ordered Sig/Ivan Route Start Time Stop Time Status Last Admin Dose Admin Heparin Sodium (Porcine) (Heparin Sq 5000 Unit/0.5ml) 5,000 unit Q12 SQ 07/10/16 21:00 08/09/16 20:59 Future hold 07/13/16 20:38 5,000 UNIT Acetaminophen (Tylenol Tab) 650 mg Q4H PRN PO 07/10/16 15:15 08/09/16 15:14 Al Hydrox/Mg Hydrox/Simethicone (Maalox Max Susp) 15 ml Q4H PRN PO 07/10/16 15:15 08/09/16 15:14 Magnesium Hydroxide (Milk Of Magnesia Susp) 30 ml Q12H PRN PO 07/10/16 15:15 08/09/16 15:14 Ondansetron HCl (Zofran Inj) 4 mg Q6H PRN IV 07/10/16 15:15 08/09/16 15:14 Polyethylene (Miralax Powder Packet) 17 gm DAILY PRN PO 07/10/16 15:15 08/09/16 15:14 Fentanyl (Duragesic Patch) 100 mcg Q3D TD 07/10/16 17:00 07/24/16 16:59 07/13/16 16:38 100 MCG Oxycodone/ Acetaminophen (Percocet 10-325MG Tab) 1 tab TID PRN PO 07/10/16 15:15 07/24/16 15:14 07/14/16 00:11 1 TAB Hydrocortisone (Hydrocortisone 1% Oint) 1 appln TID EXT 07/10/16 21:00 08/09/16 20:59 07/12/16 14:27 1 APPLN Mirtazapine (Remeron Solutab) 30 mg HS PO 07/10/16 21:00 08/09/16 20:59 07/13/16 20:33 30 MG Miscellaneous (Fentanyl Patch Remove & Waste) 1 ea Q72H N/A 07/13/16 17:00 08/12/16 16:59 07/13/16 16:31 1 EA Miscellaneous Information 1 ea 1 ea QS N/A 07/11/16 00:00 08/10/16 00:00 07/13/16 23:46 1 EA Iron Sucrose/ Sodium Chloride (Venofer Inj/Nss 100ml) 105 ml @ 420 mls/hr DAILY@0800 IV 07/13/16 08:00 07/22/16 08:14 07/13/16 09:04 420 MLS/HR Folic Acid 1 mg 1 mg QAM PO 07/13/16 09:00 08/12/16 08:59 07/13/16 09:05 1 MG Sodium Chloride (1/2 Nss 1000ml) 1,000 ml @ 125 mls/hr Q8H IV 07/13/16 10:00 08/12/16 09:59 07/13/16 22:00 125 MLS/HR Impression (1) Acute renal failure (2) Syncope (3) Cirrhosis (4) Bipolar disorder (5) Oral cancer Incarcerated 55 year old white male w/ bipolar disorder, alcoholism and longstanding h/o tobacco abuse. 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 He recently completed high dose cisplatin therapy. Patient now admitted with dehydration, recurrent falls and JAS (creatinine 3.9, baseline 0.8 04/08/16). Renal US is negative for obstruction. Patient has been admitted for IV hydration and ongoing medical management. Recommendations ACUTE KIDNEY INJURY: -- renal function continues to improve, creatinine was 2.1 this morning. Expect renal function continued to improve with volume repletion and hemodynamics support. -- Baseline creatinine was 0.8 (04/08/16) -- Renal US is negative for obstruction -- FENA 1.3%. Creatinine is trending down w/ IV hydration. No evidence of volume overload at this time. Continue IV hydration -- Monitor serial PRP -- Urinalysis was negative for glucosuria # hypokalemia: Resolved -- With renal loss, replace with KCl 40 mEq x1 dose # hypernatremia: with free water deficit and normal saline --resolved, continue on IV fluid to 1/2 NS BIPOLAR DISORDER: -- [place] level is low -- Hold lithium until kidney function is near baseline ANEMIA: -- Iron saturation 27% w/ ferritin 582, on IV iron therapy
[2016-07-14 11:12] VITALS: BP 145/74; PULSE 74; TEMP 37; O2SAT 93
--- NOTE | 2016-07-14 12:36 | Hospitalist Progress Note ---
Hospitalist Progress Note Date of Service July 14, 2016. Subjective Pt evaluation today including: conversation w/ patient, physical exam Medications Medications (Trade) Dose Ordered Sig/Ivan Route Start Time Stop Time Status Last Admin Dose Admin Miscellaneous (Fentanyl Patch Remove & Waste) 1 ea Q72H N/A 07/13/16 17:00 08/12/16 16:59 07/13/16 16:31 1 EA Folic Acid 1 mg 1 mg QAM PO 07/13/16 09:00 08/12/16 08:59 07/13/16 09:05 1 MG Sodium Chloride (1/2 Nss 1000ml) 1,000 ml @ 125 mls/hr Q8H IV 07/13/16 10:00 08/12/16 09:59 07/13/16 22:00 125 MLS/HR Potassium Chloride (Klor-Con M10) 40 meq NOW ONCE PO 07/13/16 10:30 07/13/16 10:31 DC 07/13/16 10:21 40 MEQ Objective Vital Signs Date Time Temp Pulse Resp B/P Pulse Ox O2 Delivery O2 Flow Rate FiO2 07/14/16 07:40 37.1 66 17 138/75 95 Room Air 07/14/16 04:00 Room Air 07/14/16 03:21 37.1 69 18 116/66 94 Room Air 07/13/16 23:59 Room Air 07/13/16 23:51 37.1 65 16 111/65 95 Room Air 07/13/16 20:00 Room Air 07/13/16 19:09 37.0 68 16 115/64 94 Room Air 07/13/16 18:10 36.8 65 20 135/73 95 07/13/16 17:10 37.1 70 20 109/64 98 07/13/16 16:40 36.9 66 18 122/69 96 07/13/16 16:30 37.1 61 20 126/75 95 07/13/16 16:00 Room Air 07/13/16 15:44 37.0 76 16 106/66 97 Room Air 07/13/16 12:00 Room Air 07/13/16 11:46 37.2 73 18 112/64 96 Room Air Physical Exam General Appearance: WD/WN Eyes: normal inspection, PERRL ENT: normal ENT inspection, hearing grossly normal Neck: supple, no adenopathy Respiratory/Chest: chest non-tender Cardiovascular: regular rate, rhythm, no edema, no murmur Abdomen: normal bowel sounds, non tender, soft Extremities: normal range of motion, non-tender 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 Skin: normal color Laboratory Results Last 24 Hours Test 07/14/16 06:50 White Blood Count 1.43 K/uL Red Blood Count 2.48 M/uL Hemoglobin 8.2 g/dL Hematocrit 23.4 % Mean Corpuscular Volume 94.4 fL Mean Corpuscular Hemoglobin 33.1 pg Mean Corpuscular Hemoglobin Concent 35.0 g/dl Platelet Count 69 K/uL Mean Platelet Volume 9.2 fL Neutrophils (%) (Auto) 33.5 % Lymphocytes (%) (Auto) 37.1 % Monocytes (%) (Auto) 21.0 % Eosinophils (%) (Auto) 3.5 % Basophils (%) (Auto) 0.7 % Neutrophils # (Auto) 0.48 K/uL Lymphocytes # (Auto) 0.53 K/uL Monocytes # (Auto) 0.30 K/uL Eosinophils # (Auto) 0.05 K/uL Basophils # (Auto) 0.01 K/uL RDW Standard Deviation 62.0 fL RDW Coefficient of Variation 18.9 % Immature Granulocyte % (Auto) 4.2 % Immature Granulocyte # (Auto) 0.06 K/uL Large Platelets 1+ Ovalocytes 1+ Sodium Level 145 mmol/L Potassium Level 3.6 mmol/L Chloride Level 111 mmol/L Carbon Dioxide Level 25 mmol/L Anion Gap 9.0 mmol/L Blood Urea Nitrogen 39 mg/dl Creatinine 2.10 mg/dl Est Creatinine Clear Calc Drug Dose 43.1 ml/min Estimated GFR () 39.6 Estimated GFR (Non- 34.2 BUN/Creatinine Ratio 18.6 Random Glucose 80 mg/dl Calcium Level 7.6 mg/dl Assessment and Plan Acute on CKD Continue with IVFs. Improved renal indices. Serum creatinine now at 2.1. Appreciate Renal input. IV fluid switched to 1/2 NSS. Likely pre renal azotemia. No evidence of obstruction on Renal Sono Bipolar Hold lithium until renal indices are back at baseline. Hx of oral cancer Undergoing treatment as OP with . Given neutropenia will consult Hematology. Neutropenic precautions. Anemia appears to be chronic. Stool hemeoccult pending. Low folate levels noted and pt started on folate supplementation Received one unit prbc. Hgb improved to 8.2 s/p one unit of pRBC. Folate deficiency Replete folate Iron deficiency Replete Fe per Renal recommendations
[2016-07-14 15:31] VITALS: BP 129/75; PULSE 60; TEMP 37.1; O2SAT 96
--- NOTE | 2016-07-14 15:42 | ONCOLOGY CONSULTATION ---
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 HISTORY OF PRESENT ILLNESS: Mr. 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 He has been receiving intermittent high dose cisplatin concurrently with radiation therapy. After his last course of chemotherapy, developed progressive lightheadedness and orthostasis. On admission, he had reported some intermittent shortness of breath but more concerning he stopped making urine. He was confirmed to be in complete renal failure with creatinine of 5.9. Mr. 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 He had imparted persistent dysphagia and right-sided otalgia, subsequently underwent MRI of the head in mid January, which revealed no intracranial pathology; however, a heterogeneous right tonsillar mass measuring 4.4 cm of greatest dimension. The mass was noted to extend to the right pharyngeal fat adjacent to the deep lobe of the parotid gland; however, no definite involvement, involving mandible or prevertebral space was noted. There was no direct evidence of lymphadenopathy. Dr. Brady performed direct laryngoscopy with biopsies in late January. Pathology confirmed squamous cell carcinoma which is P16 negative. The patient was completely staged and has been receiving chemoradiation as described. He is due for day 64 high dose cisplatin on July 16. 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 PAST SURGICAL HISTORY: Procedure - esophageal biopsy and nonsurgical tonsil biopsy, laryngoscopy. MEDICATIONS: Clotrimazole 10 mg p.o. q.i.d., diphenhydramine 50 mg p.o. t.i.d., Cymbalta 60 mg p.o. daily, fentanyl patch 100 mcg topically q. 72 hours, magnesium carbonate 150 mg p.o. every day, neomycin, bacitracin, polymyxin topical use b.i.d. to affected area, omeprazole dose unknown, ibuprofen 400 mg p.o. q.i.d. p.r.n. as needed for pain, oxycodone/acetaminophen 10/325 p.o. t.i.d. p.r.n. for pain, Magic mouthwash p.r.n. ALLERGIES: MORPHINE. SOCIAL HISTORY: The patient is incarcerated, positive prior tobacco use. No current alcohol or illicit drugs. FAMILY HISTORY: Noncontributory. REVIEW OF SYSTEMS: The patient had presented with low grade fever and acute renal failure, lightheadedness, generalized weakness. He is not anorexic or losing weight. SKIN: No rashes or lesions. No history of dermatosis. HEENT: Positive for lightheadedness and dizziness. No current headache, no acute visual or hearing deficits. No sinus symptoms, sore throat or dysphagia. LYMPH: No history of peripheral lymphadenopathy or lymphoproliferative disorder. CARDIAC: No history of coronary artery disease, no angina or palpitations. PULMONARY: Negative for COPD. No shortness of breath, dyspnea or orthopnea. No cough or hemoptysis. GASTROINTESTINAL: Negative for abdominal pain, nausea or vomiting. He does complain of occasional constipation; no diarrhea, presently. GENITOURINARY: No history of prostate disease. No hematuria, dysuria, urinary incontinence. MUSCULOSKELETAL: No arthralgias or myalgias. No muscle weakness. ENDOCRINE: Negative for diabetes or thyroid disease. NEUROLOGIC: Negative for seizure, stroke, or migraine headache. HEMATOLOGIC: Positive for pancytopenia, attributable to current treatment. PHYSICAL EXAMINATION: GENERAL: Pleasant 55-year-old gentleman lying supine in bed, awake, alert, and appropriate. No acute distress. VITAL SIGNS: Temperature 37.1, pulse 86, respirations 17, blood pressure 138/75. SKIN: Without rash or lesion. EXTREMITIES: No ecchymosis or petechiae noted. Turgor is fair. HEENT: Head atraumatic, normocephalic. EYES: PERRLA, EOMI. Sclerae nonicteric. No conjunctival injection. Nares are patent without rhinorrhea or discharge. Throat is clear. Tongue is midline. Mucous membranes are moist. NECK: Supple without JVD or thyromegaly. LYMPH: No cervical, supraclavicular, axillary or inguinal palpable nodes. HEART: Regular rate and rhythm. No clicks, rubs, murmurs or gallops. LUNGS: Clear to auscultation bilaterally. ABDOMEN: Soft, nontender, nondistended, without palpable hepatosplenomegaly. EXTREMITIES: No calf tenderness or swelling. No clubbing, cyanosis or edema. NEUROLOGICALLY: He is awake, alert and oriented x3. Cranial nerves II-XII are grossly intact. No gross motor, no sensory deficits are noted. LABORATORY DATA: Nasal swab positive for MRSA. Sodium 145, potassium 3.6, chloride 111, carbon dioxide 25, creatinine 2.10, BUN 39. WBC count 1430, hemoglobin 8.2, platelet count 69,000 and absolute neutrophil count 480. IMPRESSION: 1. Acute renal injury attributable to cisplatin toxicity. 2. Pancytopenia, again attributable to a combined chemoradiation. 3. Positive nasal swab for methicillin-resistant staphylococcus aureus. 4. History of bipolar disease. 5. Liver cirrhosis. PLAN: I had the pleasure of seeing Mr. Leiva at bedside today. 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 He is due for day 64 dose of high dose cisplatin. Obviously with past clinical events, will recommend a significant dose reduction or possibly even completely deferring his final dose. Will discuss further with Dr. Shore from radiation oncology. In regard to his ongoing cytopenias, I believe these are obviously attributable to his treatment as well. Generally speaking, we avoid granulocyte colony stimulating growth factor in the setting of radiation. Brandon shows no evidence of active infection and seems to be doing well clinically. Will plan to see him in followup on his scheduled today on July 16 and decide whether to pursue with a modified dose for complete radiation therapy to avoid further chemo. Appreciate nephrology's assistance in his care. His creatinine has improved and I suspect his peripheral blood counts will do so as time goes on. Thank you very much for allowing me to participate in his care. If you have any questions or concerns, feel free to contact me at any time.
[2016-07-14 19:30] VITALS: BP 119/68; PULSE 64; TEMP 36.9; O2SAT 92
[2016-07-14] MEDS: MIRTAZAPINE SOLTAB 15 MG PO SCH (20:29)
[2016-07-14 23:47] VITALS: BP 114/70; PULSE 69; TEMP 36.7; O2SAT 93
[2016-07-15] VITALS (15 sets, daily range): BP systolic 119–149; BP diastolic 67–87; PULSE 59–86; TEMP 36.8–37.6; O2SAT 92–99
[2016-07-15] MEDS: SODIUM CHLORIDE 0.45% 1000ML 1,000 ML IV SCH ×3 (00:12→18:00)
[2016-07-15] MEDS: CHECK FENTANYL PATCH PLACEMENT SCH ×3 (00:13→17:02)
--- NOTE | 2016-07-15 07:42 | Radiation Oncology Progress Nt ---
Radiation Oncology Progress Nt Date of Service Date of Service: July 15, 2016. Subjective Pt evaluation today including: chart review, lab review, review of studies, review of inpatient medication list Objective Vital Signs Date Time Temp Pulse Resp B/P Pulse Ox O2 Delivery O2 Flow Rate FiO2 07/15/16 07:21 37.2 63 18 130/76 92 Room Air 07/15/16 04:00 98 Room Air 07/15/16 03:52 36.9 61 18 120/67 98 Room Air 07/15/16 00:01 93 Room Air 07/14/16 23:47 36.7 69 16 114/70 93 Room Air 07/14/16 20:15 Room Air 07/14/16 19:30 36.9 64 16 119/68 92 Room Air 07/14/16 16:00 Room Air 07/14/16 15:31 37.1 60 18 129/75 96 Room Air 07/14/16 12:00 Room Air 07/14/16 11:12 37.0 74 20 145/74 93 Room Air 07/14/16 08:00 Room Air 07/14/16 07:40 37.1 66 17 138/75 95 Room Air Laboratory Results Test 07/10/16 14:00 07/10/16 17:11 07/10/16 17:55 07/11/16 08:03 Prothrombin Time 12.7 Prothrombin Time INR 1.2 [place] Level < 0.2 Urine Color YELLOW Urine Appearance CLEAR Urine pH 5.0 Urine Specific [place] 1.018 Urine Protein NEG Urine Glucose (UA) NEG Urine Ketones TRACE Urine Occult Blood NEG Urine Nitrite NEG Urine Bilirubin NEG Urine Urobilinogen NEG Urine Leukocyte Esterase NEG Red Blood Cell Morphology Unremarkable Test 07/12/16 04:46 07/12/16 06:46 07/13/16 07:30 07/14/16 06:50 Urine Random Creatinine 15.0 Urine Random Sodium 9 Red Blood Cell Morphology Unremarkable Iron Level 57 Total Iron Binding Capacity 180 Transferrin 151 Transferrin % Saturation 27 Ferritin 582.0 Vitamin B12 Level 881 Folate 2.44 RDW Standard Deviation 59.3 62.0 RDW Coefficient of Variation 18.3 18.9 White Blood Count 1.38 1.43 Red Blood Count 2.09 2.48 Hemoglobin 7.2 8.2 Hematocrit 20.0 23.4 Mean Corpuscular Volume 95.7 94.4 Mean Corpuscular Hemoglobin 34.4 33.1 Mean Corpuscular Hemoglobin Concent 36.0 35.0 Platelet Count 71 69 Mean Platelet Volume 9.5 9.2 Neutrophils (%) (Auto) 39.9 33.5 Lymphocytes (%) (Auto) 34.1 37.1 Monocytes (%) (Auto) 20.3 21.0 Eosinophils (%) (Auto) 3.6 3.5 Basophils (%) (Auto) 0.7 0.7 Neutrophils # (Auto) 0.55 0.48 Lymphocytes # (Auto) 0.47 0.53 Monocytes # (Auto) 0.28 0.30 Eosinophils # (Auto) 0.05 0.05 Basophils # (Auto) 0.01 0.01 Immature Granulocyte % (Auto) 1.4 4.2 Immature Granulocyte # (Auto) 0.02 0.06 Platelet Estimate DECREASED Ovalocytes 1+ 1+ Est Creatinine Clear Calc Drug Dose 36.2 43.1 Large Platelets 1+ Sodium Level 145 Potassium Level 3.6 Chloride Level 111 Carbon Dioxide Level 25 Anion Gap 9.0 Blood Urea Nitrogen 39 Creatinine 2.10 Estimated GFR () 39.6 Estimated GFR (Non- 34.2 BUN/Creatinine Ratio 18.6 Random Glucose 80 Calcium Level 7.6 Assessment and Plan Reviewed all available information. I have already spoken with Dr. Bautista and will also review case with Dr. Samson. Recommend holding radiation therapy today due to the fact that patient is recovering from JAS and lab results showing neutropenia yesterday. We will continue to follow patient and reassess if patient is a candidate for radiation therapy tomorrow.
[2016-07-15 07:45] LABS: HEMATOCRIT 21.9 % (42-52); MEAN CELL VOLUME 92.4 fL (80-100); MEAN CORPUSCULAR HEMOGLOBIN 31.6 pg (25-34); MEAN CORPUSCULAR HGB CONC 34.2 g/dl (32-36); MEAN PLATELET VOLUME 9.7 fL (7.4-10.4); PLATELET COUNT 77 K/uL (130-400); RED BLOOD COUNT 2.37 M/uL (4.7-6.1); WHITE BLOOD COUNT 1.76 K/uL (4.8-10.8)
[2016-07-15] MEDS: OXYCODONE/ACETAMINOPHEN 10/325MG TAB PO PRN ×2 (07:52→17:13)
[2016-07-15] MEDS: HEPARIN SOD 5000 UNIT/0.5 ML CARP SQ SCH ×2 (07:54→21:21)
[2016-07-15] MEDS: HYDROCORTISONE 1% OINT 30 GM TUBE EXT SCH ×3 (07:58→21:18)
[2016-07-15] MEDS: IRON SUCROSE INJ 100 MG in SODIUM CHLORIDE 0.9% 100ML 100 ML IV SCH (07:58)
[2016-07-15 08:35] LABS: BUN/CREATININE RATIO 16.7 (10-20); CALCIUM 7.3 mg/dl (8.5-10.1); POTASSIUM 3.3 mmol/L (3.5-5.1)
[2016-07-15 08:47] LABS: BASO % 1.1 %; BASO ABS # 0.02 K/uL (0-0.2); COMPLETE YES; IG% 6.8 %; LYMPH % 26.1 %; LYMPH ABS # 0.46 K/uL (1.2-3.4); MONO % 25.6 %; NEUT % 36.4 %
[2016-07-15] MEDS ORDERED: POTASSIUM CHLORIDE 10 MEQ TABCR PO ONE (09:15)
[2016-07-15] MEDS ORDERED: POTASSIUM CHLORIDE 10 MEQ TABCR PO STA (10:37)
--- NOTE | 2016-07-15 10:50 | Hospitalist Progress Note ---
Hospitalist Progress Note Date of Service July 15, 2016. Subjective Pt evaluation today including: conversation w/ patient, physical exam, chart review, lab review, review of studies, conversation w/ analytical consultant, review of inpatient medication list Patient says that he wants to be discharged today. History is limited as the patient is not cooperating. He denies any pain. He denies any dizziness or lightheadedness. No shortness of breath. Reports eating okay, however the guards noticed that he has not been eating much. Additional Comments: 6 system review negative. Please see pertinent positives in the history of present illness section. Objective Vital Signs Date Time Temp Pulse Resp B/P Pulse Ox O2 Delivery O2 Flow Rate FiO2 07/15/16 08:00 Room Air 07/15/16 07:21 37.2 63 18 130/76 92 Room Air 07/15/16 04:00 98 Room Air 07/15/16 03:52 36.9 61 18 120/67 98 Room Air 07/15/16 00:01 93 Room Air 07/14/16 23:47 36.7 69 16 114/70 93 Room Air 07/14/16 20:15 Room Air 07/14/16 19:30 36.9 64 16 119/68 92 Room Air 07/14/16 16:00 Room Air 07/14/16 15:31 37.1 60 18 129/75 96 Room Air 07/14/16 12:00 Room Air 07/14/16 11:12 37.0 74 20 145/74 93 Room Air Physical Exam General Appearance: no apparent distress ENT: + pertinent finding (no exudate noted on the tongue) Neck: no JVD Respiratory/Chest: lungs clear Cardiovascular: regular rate, rhythm Abdomen: normal bowel sounds, non tender, soft Extremities: non-tender, no pedal edema Neurologic/Psychiatric: no motor/sensory deficits, oriented x 3 Skin: warm/dry Laboratory Results 07/15/16 07:04 Red Blood Count 2.37, Mean Corpuscular Volume 92.4, Mean Corpuscular Hemoglobin 31.6, Mean Corpuscular Hemoglobin Concent 34.2, Mean Platelet Volume 9.7, Neutrophils (%) (Auto) 36.4, Lymphocytes (%) (Auto) 26.1, Monocytes (%) (Auto) 25.6, Eosinophils (%) (Auto) 4.0, Basophils (%) (Auto) 1.1, Neutrophils # (Auto ) 0.64, Lymphocytes # (Auto) 0.46, Monocytes # (Auto) 0.45, Eosinophils # (Auto ) 0.07, Basophils # (Auto) 0.02 07/15/16 07:04 Test 07/15/16 07:04 White Blood Count 1.76 K/uL (4.8-10.8) Red Blood Count 2.37 M/uL (4.7-6.1) Hemoglobin 7.5 g/dL (14.0-18.0) Hematocrit 21.9 % (42-52) Mean Corpuscular Volume 92.4 fL (80-100) Mean Corpuscular Hemoglobin 31.6 pg (25-34) Mean Corpuscular Hemoglobin Concent 34.2 g/dl (32-36) Platelet Count 77 K/uL (130-400) Mean Platelet Volume 9.7 fL (7.4-10.4) Neutrophils (%) (Auto) 36.4 % Lymphocytes (%) (Auto) 26.1 % Monocytes (%) (Auto) 25.6 % Eosinophils (%) (Auto) 4.0 % Basophils (%) (Auto) 1.1 % Neutrophils # (Auto) 0.64 K/uL (1.4-6.5) Lymphocytes # (Auto) 0.46 K/uL (1.2-3.4) Monocytes # (Auto) 0.45 K/uL (0.11-0.59) Eosinophils # (Auto) 0.07 K/uL (0-0.5) Basophils # (Auto) 0.02 K/uL (0-0.2) RDW Standard Deviation 62.8 fL (36.4-46.3) RDW Coefficient of Variation 18.8 % (11.5-14.5) Immature Granulocyte % (Auto) 6.8 % Immature Granulocyte # (Auto) 0.12 K/uL (0.00-0.02) Red Blood Cell Morphology Unremarkable Anion Gap 10.0 mmol/L (3-11) Est Creatinine Clear Calc Drug Dose 45.3 ml/min Estimated GFR () 42.0 Estimated GFR (Non- 36.2 BUN/Creatinine Ratio 16.7 (10-20) Calcium Level 7.3 mg/dl (8.5-10.1) Last 24 Hours Test 07/15/16 07:04 White Blood Count 1.76 K/uL Red Blood Count 2.37 M/uL Hemoglobin 7.5 g/dL Hematocrit 21.9 % Mean Corpuscular Volume 92.4 fL Mean Corpuscular Hemoglobin 31.6 pg Mean Corpuscular Hemoglobin Concent 34.2 g/dl Platelet Count 77 K/uL Mean Platelet Volume 9.7 fL Neutrophils (%) (Auto) 36.4 % Lymphocytes (%) (Auto) 26.1 % Monocytes (%) (Auto) 25.6 % Eosinophils (%) (Auto) 4.0 % Basophils (%) (Auto) 1.1 % Neutrophils # (Auto) 0.64 K/uL Lymphocytes # (Auto) 0.46 K/uL Monocytes # (Auto) 0.45 K/uL Eosinophils # (Auto) 0.07 K/uL Basophils # (Auto) 0.02 K/uL RDW Standard Deviation 62.8 fL RDW Coefficient of Variation 18.8 % Immature Granulocyte % (Auto) 6.8 % Immature Granulocyte # (Auto) 0.12 K/uL Red Blood Cell Morphology Unremarkable Sodium Level 144 mmol/L Potassium Level 3.3 mmol/L Chloride Level 110 mmol/L Carbon Dioxide Level 24 mmol/L Anion Gap 10.0 mmol/L Blood Urea Nitrogen 33 mg/dl Creatinine 2.00 mg/dl Est Creatinine Clear Calc Drug Dose 45.3 ml/min Estimated GFR () 42.0 Estimated GFR (Non- 36.2 BUN/Creatinine Ratio 16.7 Random Glucose 79 mg/dl Calcium Level 7.3 mg/dl Assessment and Plan Presented to the emergency department with syncopal episodes, weakness and abnormal blood work. Found to be profoundly anemic. Acute on CKD-Cr 2.0 today -Continue 1/2 NS @ 125 today Bipolar -Restart [place] today Hx of oral cancer -Chemo and radiation on hold for acute renal failure Anemia/pancytopenia secondary to chemo/deficiencies-Hgb 7.5 today -transfused 1 u pRBC. Give an additional unit today -getting iron IV infusions -heme/onc following -FOB pending -Continue folic acid 1 mg daily DVT prophylaxis -Heparin 5000 u subQ BID -TEDS, SCDs CODE STATUS -LEVEL I FULL CODE DISPO -possible d/c tomorrow -will need f/u blood work This chart was completed in part utilizing [employer] Speech Voice Recognition software. Attempts were made to minimize the grammatical errors, random word insertions, pronoun errors and incomplete sentences. Any formal questions or concerns about the content, text or information contained within the body of this dictation should be directly addressed to the provider for clarification.
--- NOTE | 2016-07-15 11:40 | Nephrology Progress Note ---
Nephrology Progress Note Date of Service July 15, 2016. Chief Complaint Follow-up for acute kidney injury Subjective Brandon was seen and examined in his room this morning with security personnel in the room. He was lying in bed, seems comfortable, otherwise feeling fine and denies any shortness of breath or chest pain. He has been having decent urine output. Blood pressure stable. Renal function continues to improve,creatinine 2.0 this morning other electrolyte acceptable. Still remained significantly pancytopenic. Review of Systems A complete review of systems was performed. Pertinent positives are noted above. All other systems are negative. Vital Signs Last 8 Hrs Date Time Temp Pulse Resp B/P Pulse Ox O2 Delivery O2 Flow Rate FiO2 07/15/16 07:21 37.2 63 18 130/76 92 Room Air 07/15/16 04:00 98 Room Air 07/15/16 03:52 36.9 61 18 120/67 98 Room Air I & O 24-Hour Column 07/15/16 08:00 Intake Total 2484 ml Balance 2484 ml Last Recorded Weight Weight (Kilograms): 80.200 Physical Exam GENERAL: middle aged male, AAA x 3, pleasant, healthy-appearing, not in any distress. NECK: Supple, no JVD. RESPIRATORY: Normal breathing efforts, no accessory muscle use, clear to auscultation bilaterally, no wheezes or rales. CARDIOVASCULAR: S1, S2 normal, rate rhythm regular. EXTREMITY: No lower extremity edema NEURO: speech fluent. PSYCHIATRY: Normal mood and judgment Family History Patient reports no known family medical history. # Negative for CKD / ESRD Social History Drug Use: other Marital Status: single Housing Status: other Occupation: other Incarcerated. History of tobacco and alcohol abuse Laboratory Results Past 24 Hours 07/15/16 07:04 Red Blood Count 2.37, Mean Corpuscular Volume 92.4, Mean Corpuscular Hemoglobin 31.6, Mean Corpuscular Hemoglobin Concent 34.2, Mean Platelet Volume 9.7, Neutrophils (%) (Auto) 36.4, Lymphocytes (%) (Auto) 26.1, Monocytes (%) (Auto) 25.6, Eosinophils (%) (Auto) 4.0, Basophils (%) (Auto) 1.1, Neutrophils # (Auto ) 0.64, Lymphocytes # (Auto) 0.46, Monocytes # (Auto) 0.45, Eosinophils # (Auto ) 0.07, Basophils # (Auto) 0.02 07/15/16 07:04 Test 07/15/16 07:04 White Blood Count 1.76 K/uL (4.8-10.8) Red Blood Count 2.37 M/uL (4.7-6.1) Hemoglobin 7.5 g/dL (14.0-18.0) Hematocrit 21.9 % (42-52) Mean Corpuscular Volume 92.4 fL (80-100) Mean Corpuscular Hemoglobin 31.6 pg (25-34) Mean Corpuscular Hemoglobin Concent 34.2 g/dl (32-36) Platelet Count 77 K/uL (130-400) Mean Platelet Volume 9.7 fL (7.4-10.4) Neutrophils (%) (Auto) 36.4 % Lymphocytes (%) (Auto) 26.1 % Monocytes (%) (Auto) 25.6 % Eosinophils (%) (Auto) 4.0 % Basophils (%) (Auto) 1.1 % Neutrophils # (Auto) 0.64 K/uL (1.4-6.5) Lymphocytes # (Auto) 0.46 K/uL (1.2-3.4) Monocytes # (Auto) 0.45 K/uL (0.11-0.59) Eosinophils # (Auto) 0.07 K/uL (0-0.5) Basophils # (Auto) 0.02 K/uL (0-0.2) RDW Standard Deviation 62.8 fL (36.4-46.3) RDW Coefficient of Variation 18.8 % (11.5-14.5) Immature Granulocyte % (Auto) 6.8 % Immature Granulocyte # (Auto) 0.12 K/uL (0.00-0.02) Red Blood Cell Morphology Unremarkable Anion Gap 10.0 mmol/L (3-11) Est Creatinine Clear Calc Drug Dose 45.3 ml/min Estimated GFR () 42.0 Estimated GFR (Non- 36.2 BUN/Creatinine Ratio 16.7 (10-20) Calcium Level 7.3 mg/dl (8.5-10.1) Allergies Coded Allergies: Morphine and Related (Verified Allergy, Unknown, UNKNOWN, 06/13/16) Medications Current Inpatient Medications Medications (Trade) Dose Ordered Sig/Ivan Route Start Time Stop Time Status Last Admin Dose Admin Heparin Sodium (Porcine) (Heparin Sq 5000 Unit/0.5ml) 5,000 unit Q12 SQ 07/10/16 21:00 08/09/16 20:59 Future hold 07/15/16 07:54 5,000 UNIT Acetaminophen (Tylenol Tab) 650 mg Q4H PRN PO 07/10/16 15:15 08/09/16 15:14 Al Hydrox/Mg Hydrox/Simethicone (Maalox Max Susp) 15 ml Q4H PRN PO 07/10/16 15:15 08/09/16 15:14 Magnesium Hydroxide (Milk Of Magnesia Susp) 30 ml Q12H PRN PO 07/10/16 15:15 08/09/16 15:14 Ondansetron HCl (Zofran Inj) 4 mg Q6H PRN IV 07/10/16 15:15 08/09/16 15:14 Polyethylene (Miralax Powder Packet) 17 gm DAILY PRN PO 07/10/16 15:15 08/09/16 15:14 Fentanyl (Duragesic Patch) 100 mcg Q3D TD 07/10/16 17:00 07/24/16 16:59 07/13/16 16:38 100 MCG Oxycodone/ Acetaminophen (Percocet 10-325MG Tab) 1 tab TID PRN PO 07/10/16 15:15 07/24/16 15:14 07/15/16 07:52 1 TAB Hydrocortisone (Hydrocortisone 1% Oint) 1 appln TID EXT 07/10/16 21:00 08/09/16 20:59 07/14/16 20:29 1 APPLN Mirtazapine (Remeron Solutab) 30 mg HS PO 07/10/16 21:00 08/09/16 20:59 07/14/16 20:29 30 MG Miscellaneous (Fentanyl Patch Remove & Waste) 1 ea Q72H N/A 07/13/16 17:00 08/12/16 16:59 07/13/16 16:31 1 EA Miscellaneous Information 1 ea 1 ea QS N/A 07/11/16 00:00 08/10/16 00:00 07/15/16 07:52 1 EA Iron Sucrose/ Sodium Chloride (Venofer Inj/Nss 100ml) 105 ml @ 420 mls/hr DAILY@0800 IV 07/13/16 08:00 07/22/16 08:14 07/15/16 07:58 420 MLS/HR Folic Acid 1 mg 1 mg QAM PO 07/13/16 09:00 08/12/16 08:59 07/15/16 07:52 1 MG Sodium Chloride (1/2 Nss 1000ml) 1,000 ml @ 125 mls/hr Q8H IV 07/13/16 10:00 08/12/16 09:59 07/15/16 00:12 125 MLS/HR Impression (1) Acute renal failure (2) Syncope (3) Cirrhosis (4) Bipolar disorder (5) Oral cancer Incarcerated 55 year old white male w/ bipolar disorder, alcoholism and longstanding h/o tobacco abuse. 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 He recently completed high dose cisplatin therapy. Patient now admitted with dehydration, recurrent falls and JAS (creatinine 3.9, baseline 0.8 04/08/16). Renal US is negative for obstruction. Patient has been admitted for IV hydration and ongoing medical management. Recommendations ACUTE KIDNEY INJURY: -- renal function continues to improve, creatinine was 2.0 this morning. Expect renal function continued to improve with volume repletion and hemodynamics support. -- Baseline creatinine was 0.8 (04/08/16) -- continue on IV fluid -- Monitor serial PRP BIPOLAR DISORDER: -- [place] level is low -- Hold lithium until kidney function is near baseline ANEMIA: -- Iron saturation 27% w/ ferritin 582, on IV iron therapy
[2016-07-15] MEDS ORDERED: LITHIUM ORAL SOLN 300MG/5 ML UDP PO SCH (14:00)
[2016-07-15] MEDS: LITHIUM ORAL SOLN 300 MG/5ML 500ML PO SCH (14:42)
[2016-07-15] MEDS: MIRTAZAPINE SOLTAB 15 MG PO SCH (21:18)
[2016-07-16] VITALS: BP 110/61; PULSE 63; TEMP 36.7; O2SAT 94
[2016-07-16] MEDS: CHECK FENTANYL PATCH PLACEMENT SCH ×2 (00:38→08:49)
[2016-07-16] MEDS: SODIUM CHLORIDE 0.45% 1000ML 1,000 ML IV SCH (02:36)
[2016-07-16 04:09] VITALS: BP 125/66; PULSE 59; TEMP 36.7; O2SAT 97
[2016-07-16 07:18] LABS: HEMATOCRIT 25.9 % (42-52); MEAN CELL VOLUME 92.2 fL (80-100); MEAN CORPUSCULAR HEMOGLOBIN 31.7 pg (25-34); MEAN CORPUSCULAR HGB CONC 34.4 g/dl (32-36); RED BLOOD COUNT 2.81 M/uL (4.7-6.1); WHITE BLOOD COUNT 2.38 K/uL (4.8-10.8)
[2016-07-16 07:28] LABS: MEAN PLATELET VOLUME 9.5 fL (7.4-10.4); PLATELET COUNT 75 K/uL (130-400)
[2016-07-16 07:32] VITALS: BP 154/85; PULSE 57; TEMP 37; O2SAT 96
[2016-07-16 07:47] LABS: BUN/CREATININE RATIO 14.8 (10-20); CALCIUM 7.5 mg/dl (8.5-10.1); POTASSIUM 3.6 mmol/L (3.5-5.1)
[2016-07-16 07:53] LABS: BASO % 0.8 %; BASO ABS # 0.02 K/uL (0-0.2); COMPLETE YES; EOS % 3.4 %; IG% 7.1 %; LYMPH % 25.2 %; MONO % 18.9 %; NEUT % 44.6 %
[2016-07-16] MEDS: LITHIUM ORAL SOLN 300 MG/5ML 500ML PO SCH (08:48)
[2016-07-16] MEDS: IRON SUCROSE INJ 100 MG in SODIUM CHLORIDE 0.9% 100ML 100 ML IV SCH (08:52)
[2016-07-16] MEDS: HEPARIN SOD 5000 UNIT/0.5 ML CARP SQ SCH (08:56)
[2016-07-16] MEDS: HYDROCORTISONE 1% OINT 30 GM TUBE EXT SCH (09:03)
[2016-07-16] MEDS: OXYCODONE/ACETAMINOPHEN 10/325MG TAB PO PRN (09:03)
[2016-07-16] MEDS ORDERED: FERR325T5 PO (09:35)
[2016-07-16] MEDS ORDERED: LITH150C6 PO (09:35)
[2016-07-16] MEDS ORDERED: FLV1 PO (09:35)
--- NOTE | 2016-07-16 09:41 | Discharge Instructions ---
Discharge Instructions Date of Service July 16, 2016. Admission Reason for Admission: Acute On Chronic Renal Failure, Syncope Discharge Discharge Diagnosis / Problem: syncope pancytopenia arf Discharge Goals Goal(s): Diagnostic testing, Therapeutic intervention Activity Recommendations Activity Limitations: resume your previous activity . Instructions / Follow-Up Instructions / Follow-Up You were admitted to the hospital for lightheadedness and abnormal labs. It appears that you have pancytopenia and acute renal failure It is very important to avoid NSAIDS (ibuprofen, naproxen, etc...) The following changes/additions have been made to your medication list: -stop ibuprofen -[place] has been changed to 50 mg daily -begin folic acid 1 mg daily -begin ferrous sulfate 325 mg twice daily You will need repeat BMP, CBC and lithium level in 2 days-->adjust dose as necessary FOLLOW UP WITH: -DR. WILSON FROM NEPHROLOGY IN 2 WEEKS -DR. MORRISSEY FROM ONCOLOGY IN 2 WEEKS -DR. CONCHA BLEDSOE/ONCOLOGY IN 2 WEEKS -PCP IN 1 WEEK Call your doctor or return to the emergency department if you have any of the following symptoms: -Fever of 101F or greater -Persistent vomiting - Persistent diarrhea -Lethargy -Chest pain -Shortness of breath -severe dizziness -weakness on one side of your body Current Hospital Diet Patient's current hospital diet: Renal Diet Discharge Diet Recommended Diet: AHA Diet (Heart Healthy) Pending Studies Studies pending at discharge: no Laboratory Results 07/16/16 07:05 Red Blood Count 2.81, Mean Corpuscular Volume 92.2, Mean Corpuscular Hemoglobin 31.7, Mean Corpuscular Hemoglobin Concent 34.4, Mean Platelet Volume 9.5, Neutrophils (%) (Auto) 44.6, Lymphocytes (%) (Auto) 25.2, Monocytes (%) (Auto) 18.9, Eosinophils (%) (Auto) 3.4, Basophils (%) (Auto) 0.8, Neutrophils # (Auto ) 1.06, Lymphocytes # (Auto) 0.60, Monocytes # (Auto) 0.45, Eosinophils # (Auto ) 0.08, Basophils # (Auto) 0.02 07/16/16 07:05 Test 07/16/16 07:05 White Blood Count 2.38 K/uL (4.8-10.8) Red Blood Count 2.81 M/uL (4.7-6.1) Hemoglobin 8.9 g/dL (14.0-18.0) Hematocrit 25.9 % (42-52) Mean Corpuscular Volume 92.2 fL (80-100) Mean Corpuscular Hemoglobin 31.7 pg (25-34) Mean Corpuscular Hemoglobin Concent 34.4 g/dl (32-36) Platelet Count 75 K/uL (130-400) Mean Platelet Volume 9.5 fL (7.4-10.4) Neutrophils (%) (Auto) 44.6 % Lymphocytes (%) (Auto) 25.2 % Monocytes (%) (Auto) 18.9 % Eosinophils (%) (Auto) 3.4 % Basophils (%) (Auto) 0.8 % Neutrophils # (Auto) 1.06 K/uL (1.4-6.5) Lymphocytes # (Auto) 0.60 K/uL (1.2-3.4) Monocytes # (Auto) 0.45 K/uL (0.11-0.59) Eosinophils # (Auto) 0.08 K/uL (0-0.5) Basophils # (Auto) 0.02 K/uL (0-0.2) RDW Standard Deviation 61.6 fL (36.4-46.3) RDW Coefficient of Variation 18.2 % (11.5-14.5) Immature Granulocyte % (Auto) 7.1 % Immature Granulocyte # (Auto) 0.17 K/uL (0.00-0.02) Red Blood Cell Morphology Unremarkable Anion Gap 7.0 mmol/L (3-11) Est Creatinine Clear Calc Drug Dose 45.3 ml/min Estimated GFR () 42.0 Estimated GFR (Non- 36.2 BUN/Creatinine Ratio 14.8 (10-20) Calcium Level 7.5 mg/dl (8.5-10.1) Medical Emergencies . Who to Call and When: Medical Emergencies: If at any time you feel your situation is an emergency, please call 911 immediately. . Non-Emergent Contact Non-Emergency issues call your: Primary Care Provider . . "Provider Documentation" section prepared by Meg Sparrow. . VTE Core Measure Inpt VTE Proph given/why not?: Unfractionated heparin SQ, T.E.D. Stockings, SCD 's
[2016-07-16 09:54] VITALS: BP 154/85; PULSE 57; TEMP 37; O2SAT 96
--- NOTE | 2016-07-16 09:57 | Discharge Summary ---
Discharge Summary Date of Service July 16, 2016. Discharge Summary Admission Date: July 10, 2016 at 15:09 Discharge Date: July 16, 2016 Discharge Disposition: Home ([facility]) Principal Diagnosis: ARF, pancytopenia Problems/Secondary Diagnoses: bipolar d/o oropharyngeal CA Procedures: transfusion 2 u pRBCs Consultations: nephrology heme/onc rad/onc Medication Reconciliation New Medications: Ferrous Sulfate (Ferrous Sulfate) 325 Mg Tab 1 TAB PO BID for 30 Days, #60 TAB Folic Acid (Folic Acid) 1 Mg Tab 1 MG PO QAM for 30 Days, #30 TAB Changed Medications: [place] Carbonate ([place] Carbonate) 150 Mg Cap 50 MG PO DAILY for 14 Days, #14 CAP (Changed from: 150 MG) Continued Medications: Clotrimazole (Mycelex) 10 Mg Tro 10 MG MT QID, [place]IM[place] Diphenhydramine Hcl (Sleep) (Diphenhydramine Hcl) 50 Mg Tab 50 MG PO TID, 1 Refill TAKE 50MG THREE TIMES DAILY NEEDED FOR ITCHING MAY HAVE DOSE AT NIGHT Duloxetine HCl (Cymbalta) 20 Mg Cap 60 MG PO DAILY 3 CAPSULE DOSE Enteral Nutrition Formula (Ensure Plus Vanilla) 1 Can Liqd 1 CAN PO TID, CAN Fentanyl (Fentanyl) 100 Mcg Tdsy 100 MCG TOP Q3D APPLY 100MCG PATCH DAILY EVERY THREE DAYS Hydrocortisone (Topical) (Hydrocortisone) 1 % Lot 1 APPLN TOP TID Lidocaine Hcl (Mouth-Throat) (Lidocaine Viscous) 2 % Brandie 10 ML TOP TID for 6 Days, #100 ML TAKE 10ML TOPICALLY THREE TIMES DAILY TO SWISH AND GARGLE PRIOR TO MEALS Mirtazapine Soltab (Remeron Soltab) 30 Mg Soltab 30 MG PO HS, TAB Neomycin-Bacitracin Zn-Polymyx (Triple Antibiotic) 1 Oin Oin 1 APPLN TOP BID APPLY OINTMENT TOPICALLY TWICE DAILY TO INSIDE OF NOSTRILS Omeprazole (Omeprazole) 20 Mg Tab 1 TAB PO BID for 90 Days, #180 TAB 3 Refills Oxycodone/Acetaminophen 10MG/325MG (Percocet 10MG/325MG) Tab 3 TABS PO TID PRN for Pain, TAB [Magic Mouth Wash] () 10 ML PO QID PRN for UNDECIDED SWISH AND SWALLOW Discontinued Medications: Ibuprofen (Motrin) 400 Mg Tab 400 MG PO QID PRN for Pain, TAB PRN Referrals At Discharge Follow up Referrals: Oncology/Hematology Referral - Within 2 Weeks with Aaron Samson D.O. Physician Referral - Within 2 Weeks with Serenity Shaffer MD Radiation Oncology Referral - Within 2 Weeks with Veeral. Shore MD Discharge Exam Patient has no complaints this morning. He denies dizziness or lightheadedness upon standing. He denies any weakness. He is continuing to complain of some mouth pain. He denies any chest pain, shortness of breath or heart palpitations. No fever or chills. Anxious to be discharged. Review of Systems: Constitutional: No fever Respiratory: No shortness of breath Cardiovascular: No chest pain Abdomen: No nausea Neurologic: No weakness Physical Exam: General Appearance: no apparent distress Eyes: EOMI ENT: + pertinent finding (small amount of blood dried in the naris bilaterally) Neck: no JVD Respiratory/Chest: lungs clear Cardiovascular: regular rate, rhythm Abdomen / GI: normal bowel sounds, non tender, soft Extremities: no calf tenderness, + pertinent finding (trace pitting edema in the lower extremities bilaterally) Neurologic/Psychiatric: no motor/sensory deficits, oriented x 3 Skin: warm/dry Hospital Course 55 y/o male presented to the emergency department with syncopal episodes, weakness and abnormal blood work. Found to be profoundly anemic. Acute on CKD-Cr 2.0 today -baseline Cr around 0.8 -hold nephrotoxic agents (NSAIDS) -stable for d/c today -BMP in 2 days -f/u nephro 2 weeks Bipolar d/o -[place] was held d/t renal fxn. Restarted 07/15 at reduced dose of 50 mg daily -Repeat lithium level in 2 days-->adjust dose PRN Hx of oral cancer -chemo and radiation initially held -received radiation on day of d/c -needs f/u with heme/rad/onc in 2 weeks Anemia/pancytopenia secondary to chemo/deficiencies- -transfused 2 u pRBCs. -received iron IV infusions -Started on ferrous sulfate 325 mg po BID and folic acid 1 mg daily DVT prophylaxis -Heparin 5000 u subQ BID -TEDS, SCDs CODE STATUS -LEVEL I FULL CODE DISPO -back to correctional facility This chart was completed in part utilizing [employer] Speech Voice Recognition software. Attempts were made to minimize the grammatical errors, random word insertions, pronoun errors and incomplete sentences. Any formal questions or concerns about the content, text or information contained within the body of this dictation should be directly addressed to the provider for clarification. Total Time Spent: Greater than 30 minutes This includes examination of the patient, discharge planning, medication reconciliation, and communication with other providers. Discharge Instructions Please refer to the electronic Patient Visit Report (Discharge Instructions) for additional information. Follow-Up nephro 2 weeks rad/heme/onc 2 weeks PCP 1 week Additional Copies To Aaron Samson D.O.; Serenity Shaffer MD; Veeral. Shore MD
[2016-07-22] MEDS ORDERED: CITRATE OF MAGNESIA (12:57)
[2016-07-22] MEDS ORDERED: MORP30TA PO (12:57)
[2016-07-22] MEDS ORDERED: LACT10SO17 PO (12:58)
[2016-09-25] MEDS ORDERED: DIPH25CA5 PO (15:06)
== END 2016-07-16 10:30 | DRG 682 ==
LOC: ENRESERVTM → ENRESERVDT → CANRESERV → EDBD 13:27 → C.EDB 13:29 → C.2T 15:09 → C.4E 07-15 10:40
PROVIDERS: ADMIT Hospitalist; ATTEND Internal Medicine
DX: N17.9 Acute kidney failure, unspecified (principal); D61.810 Antineoplastic chemotherapy induced pancytopenia; E87.0 Hyperosmolality and hypernatremia; E86.0 Dehydration; R55 Syncope and collapse; I95.9 Hypotension, unspecified; C09.0 Malignant neoplasm of tonsillar fossa; E53.8 Deficiency of other specified B group vitamins; E61.1 Iron deficiency; E87.6 Hypokalemia; N18.9 Chronic kidney disease, unspecified; F31.9 Bipolar disorder, unspecified; K74.60 Unspecified cirrhosis of liver; Z51.81 Encounter for therapeutic drug level monitoring; Z79.899 Other long term (current) drug therapy; Z79.891 Long term (current) use of opiate analgesic; Z22.322 Carrier or suspected carrier of Methicillin resistant Staphylococcus aureus; Z91.81 History of falling; F10.21 Alcohol dependence, in remission; Z85.818 Personal history of malignant neoplasm of other sites of lip, oral cavity, and pharynx; Z87.891 Personal history of nicotine dependence; Z85.89 Personal history of malignant neoplasm of other organs and systems

== ENCOUNTER 2016-09-25 14:25 | Emergency (ER) | payer OTHER ==
[~2016-09-25] VITALS: Ht 182.9 cm; Wt 67.3 kg
[~2016-09-25 14:25] MED LIST changes: -ACET-749 PO; +CITRATE OF MAGNESIA; -DIPH50TA10 PO; +DRGTP100 TOP; +FERR325T5 PO; +FLV1 PO; -FNTTP50 TD; +HYDR1LOT6 TOP; +LACT10SO17 PO; +LIDO2SOL19 TOP; -LITH150C6 PO; +MIRT30TA2 PO; +MORP30TA PO; +NEOMOIN76 TOP; +OMEP20TA PO; +OXYC-106 PO; -RISP1TAB3 PO; -[UNRECOGNIZED DRUG - CODE] PO
[2016-09-25 14:29] VITALS: TEMP 36.7; Ht 182.9 cm; Wt 67.3 kg
[2016-09-25] MEDS ORDERED: LORA-741 PO (14:58)
[2016-09-25] MEDS ORDERED: NUTR-977 PO (15:04)
[2016-09-25] MEDS ORDERED: BND25 PO (15:06)
[2016-09-25] MEDS ORDERED: SODIUM CHLORIDE 0.9% 500ML 500 ML IV STA (15:09)
[2016-09-25] MEDS ORDERED: SODIUM CHLORIDE 0.9% 1000ML 1,000 ML IV STA (15:09)
--- NOTE | 2016-09-25 15:28 | EMERGENCY ROOM VISIT NOTE ---
History Report prepared by Nasir: Simon Burnette Under the Supervision of: Dr. Deja Carreon M.D. First contact with patient: 15:07 Chief Complaint: GI ASSESSMENT Stated Complaint: BLACK TARRY STOOLS, POSS. GI BLEED History of Present Illness The patient is a 55 year old male who presents to the Emergency Room with complaints of black stools starting today. The patient has a history of throat cancer with his last chemo treatment occurring a couple of weeks ago. He reports soreness in the mouth. He also complains of lower abdominal pain. He rates a pain intensity of 9/10. He started having nausea and vomiting a few days ago. He had some red colored emesis this morning but had drank orange juice just prior to vomiting. The patient denies dizziness, fevers, shortness of breath, or any other complaints. He does not have a history of abdominal surgeries. Source of History: patient Onset: today Position: other (global) Symptom Intensity: 9/10 Quality: other (black stools) Associated Symptoms: + nausea, + vomiting, + abdominal pain, No fevers, No SOB Review of Systems See HPI for pertinent positives & negatives. A total of 10 systems reviewed and were otherwise negative. Past Medical & Surgical Medical Problems: (1) Acute kidney failure (2) acute on chronic renal failure, syncope (3) Altered mental status (4) Altered mental status (5) Bipolar disorder (6) Cirrhosis (7) Mouth cancer (8) Oral cancer (9) Tobacco abuse Social History Problems: (1) Alcohol abuse Family History Patient reports no known family medical history. Social History Smoking Status: Current Every Day Smoker Drug Use: other Marital Status: single Housing Status: other Occupation Status: other Current/Historical Medications Scheduled Duloxetine HCl (Cymbalta), 60 MG PO DAILY Enteral Nutrition Formula (Ensure Plus Vanilla), 1 CAN PO TID Fentanyl (Fentanyl), 100 MCG TOP Q3D Ferrous Sulfate (Ferrous Sulfate), 1 TAB PO BID Folic Acid (Folic Acid), 1 MG PO QAM Lactulose (Chronulac), 30 ML PO TID Lidocaine Hcl (Mouth-Throat) (Lidocaine Viscous), 10 ML TOP TID Lorazepam (Ativan), 0.5 MG PO HS Mirtazapine Soltab (Remeron Soltab), 30 MG PO HS Morphine Sulfate Ir (Morphine Sulfate Ir), 2 TAB PO Q6H Neomycin-Bacitracin Zn-Polymyx (Triple Antibiotic), 1 APPLN TOP BID Omeprazole (Omeprazole), 1 TAB PO BID Scheduled PRN Diphenhydramine Hcl (Benadryl), 50 MG PO Q4H PRN for Itching Oxycodone/Acetaminophen 10MG/325MG (Percocet 10MG/325MG), 3 TABS PO Q6 PRN for Pain [Magic Mouth Wash], 10 ML PO QID PRN for UNDECIDED Miscellaneous Medications [citrate of magnesia] Allergies Coded Allergies: Morphine and Related (Verified Allergy, Unknown, UNKNOWN, 06/13/16) Physical Exam Vital Signs Date Time Temp Pulse Resp B/P (MAP) Pulse Ox O2 Delivery O2 Flow Rate FiO2 09/25/16 18:09 85 18 145/89 98 09/25/16 17:15 71 18 159/92 98 Room Air 09/25/16 15:08 82 09/25/16 14:29 36.7 90 18 103/69 99 Room Air Physical Exam Vital signs reviewed. General: Cachectic, in no significant distress. HEENT: Pale conjunctiva, PERRLA, neck supple. Atraumatic. Dry mucous membranes. Cardiovascular: Regular rate and rhythm, no extra sounds. Pulmonary: Clear to auscultation bilaterally, normal work of breathing. Abdomen: Soft, mild tenderness to lower abdomen, no guarding or rigidity, nondistended, positive bowel sounds. Musculoskeletal: Atraumatic, no peripheral edema. Neurologic: Patient awake alert and oriented x 3, full strength in all 4 extremities. Cranial nerves 2 through 12 grossly intact. Skin: Warm, dry, no rash Medical Decision & Procedures Laboratory Results 09/25/16 15:24 Red Blood Count 2.19, Mean Corpuscular Volume 100.0, Mean Corpuscular Hemoglobin 35.2, Mean Corpuscular Hemoglobin Concent 35.2, Mean Platelet Volume 10.0, Neutrophils (%) (Auto) 80.1, Lymphocytes (%) (Auto) 13.4, Monocytes (%) ( Auto) 4.5, Eosinophils (%) (Auto) 1.7, Basophils (%) (Auto) 0.0, Neutrophils # ( Auto) 2.34, Lymphocytes # (Auto) 0.39, Monocytes # (Auto) 0.13, Eosinophils # ( Auto) 0.05, Basophils # (Auto) 0.00 09/25/16 15:24 Test 09/25/16 15:24 09/25/16 15:36 White Blood Count 2.92 K/uL (4.8-10.8) Red Blood Count 2.19 M/uL (4.7-6.1) Hemoglobin 7.7 g/dL (14.0-18.0) Hematocrit 21.9 % (42-52) Mean Corpuscular Volume 100.0 fL (80-100) Mean Corpuscular Hemoglobin 35.2 pg (25-34) Mean Corpuscular Hemoglobin Concent 35.2 g/dl (32-36) Platelet Count 36 K/uL (130-400) Mean Platelet Volume 10.0 fL (7.4-10.4) Neutrophils (%) (Auto) 80.1 % Lymphocytes (%) (Auto) 13.4 % Monocytes (%) (Auto) 4.5 % Eosinophils (%) (Auto) 1.7 % Basophils (%) (Auto) 0.0 % Neutrophils # (Auto) 2.34 K/uL (1.4-6.5) Lymphocytes # (Auto) 0.39 K/uL (1.2-3.4) Monocytes # (Auto) 0.13 K/uL (0.11-0.59) Eosinophils # (Auto) 0.05 K/uL (0-0.5) Basophils # (Auto) 0.00 K/uL (0-0.2) RDW Standard Deviation 73.4 fL (36.4-46.3) RDW Coefficient of Variation 19.7 % (11.5-14.5) Immature Granulocyte % (Auto) 0.3 % Immature Granulocyte # (Auto) 0.01 K/uL (0.00-0.02) Anisocytosis PRESENT Est Creatinine Clear Calc Drug Dose 37.4 ml/min Estimated GFR () 39.6 Estimated GFR (Non- 34.2 BUN/Creatinine Ratio 15.1 (10-20) Calcium Level 8.7 mg/dl (8.5-10.1) Total Bilirubin 1.1 mg/dl (0.2-1) Direct Bilirubin 0.5 mg/dl (0-0.2) Aspartate Amino Transf (AST/SGOT) 29 U/L (15-37) Alanine Aminotransferase (ALT/SGPT) 17 U/L (12-78) Alkaline Phosphatase 117 U/L (45-117) Total Protein 6.2 gm/dl (6.4-8.2) Albumin 3.2 gm/dl (3.4-5.0) Bedside Hemoglobin 7.5 g/dl (14.0-18.0) Bedside Hematocrit 22 % (42-52) Bedside Sodium 139 mEq/L (135-144) Bedside Potassium 5.2 mEq/L (3.3-5.0) Bedside Chloride 103 mEq/L (101-112) Bedside Total CO2 27 mEq/l (24-31) Anion Gap 15.0 mmol/L (16-25) Bedside Blood Urea Nitrogen 37 mg/dl (7-18) Bedside Creatinine 2.1 mg/dl (0.6-1.3) Bedside Glucose (other) 77 mg/dl (70-99) Bedside Ionized Calcium (Jacob) 1.13 mmol/l (1.12-1.32) Laboratory results per my review. Medications Administered Medications (Trade) Dose Ordered Sig/Ivan Route Start Time Stop Time Status Last Admin Dose Admin Sodium Chloride 1,000 ml @ 125 mls/hr Q8H STAT IV 09/25/16 15:09 09/25/16 18:58 DC 09/25/16 16:04 125 MLS/HR Sodium Chloride 500 ml @ 999 mls/hr Q31M STAT IV 09/25/16 15:09 09/25/16 15:39 DC 09/25/16 16:05 999 MLS/HR ECG Indication: other (Black stools) Rate (beats per minute): 79 Rhythm: normal sinus Findings: no acute ischemic change, no ectopy, other (Low voltage QRS) ED Course 1507: Past medical records reviewed. The patient was evaluated in room A02. A complete history and physical examination was performed. 1509: Sodium Chloride 500 ml @ 999 mls/hr IV, Sodium Chloride 1000 ml @ 125 mls/ hr IV 1730: I reevaluated the patient. I discussed findings with him. He is refusing to be hospitalized for further evaluation. He was discharged home. Medical Decision Differential diagnosis: Etiologies such as diverticulosis, AVM, coagulopathy, colitis, inflammatory bowel disease, malignancy, Ct-Goldberg tear, esophagitis, peptic ulcer disease , variceal bleed, gastritis, epistaxis, fissure, hemorrhoids, as well as others were entertained. This patient was evaluated and appeared to be in no significant distress. He does appear to be pale. Vital signs are stable. Patient was hydrated with normal saline solution. H&H is noted to be low with a hemoglobin of 7.7 and a platelet count of 36. Patient has a known throat cancer. He finished his radiation treatments several weeks ago. He didn't provide a stool specimen which is guaiac negative although black in appearance. I believe this is attributable to his iron supplementation. I have expressed my concern for the patient's pancytopenia. He is refusing to stay in the hospital, states he would like to "sit and be with myself." The patient did sign out AGAINST MEDICAL ADVICE. He states she will come back later. The patient was encouraged to return for worsening of symptoms or any medical concerns. He will follow-up with the jail physician for further management. Medication Reconcilliation Current Medication List: was personally reviewed by me Blood Pressure Screening Patient's blood pressure: Elevated blood pressure Blood pressure disposition: Referred to PCP Impression Primary Impression: Thrombocytopenia Additional Impression: Anemia Scribe Attestation The scribe's documentation has been prepared under my direction and personally reviewed by me in its entirety. I confirm that the note above accurately reflects all work, treatment, procedures, and medical decision making performed by me. Departure Information Dispostion Home / Self-Care Referrals Giovanny VILLA (PCP) Forms HOME CARE DOCUMENTATION FORM, IMPORTANT VISIT INFORMATION Patient Instructions My [facility] Additional Instructions Diagnosis: Anemia, thrombocytopenia Drink plenty of fluids. You have signed out AGAINST MEDICAL ADVICE Please seek medical attention with your doctor COLE. Return to the emergency department for any worsening of symptoms, change of heart regarding admission or any medical concerns. Problem Qualifiers
[2016-09-25 15:38] LABS: HEMATOCRIT 21.9 % (42-52); MEAN CORPUSCULAR HEMOGLOBIN 35.2 pg (25-34); MEAN CORPUSCULAR HGB CONC 35.2 g/dl (32-36); RED BLOOD COUNT 2.19 M/uL (4.7-6.1); WHITE BLOOD COUNT 2.92 K/uL (4.8-10.8)
[2016-09-25 15:49] LABS: ISTAT CREATININE 2.1 mg/dl (0.6-1.3); ISTAT HEMOGLOBIN 7.5 g/dl (14.0-18.0); ISTAT IONIZED CALCIUM 1.13 mmol/l (1.12-1.32)
[2016-09-25 15:49] LABS: PLATELET COUNT 36 K/uL (130-400)
[2016-09-25 15:56] LABS: BUN/CREATININE RATIO 15.1 (10-20); CALCIUM 8.7 mg/dl (8.5-10.1); CREATININE 2.1 mg/dl (0.60-1.40); POTASSIUM 4.8 mmol/L (3.5-5.1)
[2016-09-25 16:06] LABS: ANISOCYTOSIS PRESENT; COMPLETE YES; EOS % 1.7 %; IG% 0.3 %; LYMPH % 13.4 %; LYMPH ABS # 0.39 K/uL (1.2-3.4); MONO % 4.5 %; NEUT % 80.1 %
[2016-09-25 18:09] VITALS: BP 145/89; PULSE 85; O2SAT 98
== END 2016-09-25 18:19 | disposition left against medical advice (07) ==
LOC: C.EDB 14:27 → C.EDA 18:19
DX: D69.6 Thrombocytopenia, unspecified (principal); D64.9 Anemia, unspecified; Z91.19 Patient's noncompliance with other medical treatment and regimen; F31.9 Bipolar disorder, unspecified; N18.9 Chronic kidney disease, unspecified; K74.60 Unspecified cirrhosis of liver; F17.200 Nicotine dependence, unspecified, uncomplicated; Z79.899 Other long term (current) drug therapy; Z88.5 Allergy status to narcotic agent

== ENCOUNTER 2016-10-05 06:10 | Emergency (ER) | payer OTHER ==
[~2016-10-05] VITALS: Ht 182.9 cm; Wt 69.7 kg
[~2016-10-05 06:10] MED LIST changes: +BND25 PO; -CLOT10TR2 MT; -HYDR1LOT6 TOP; +LORA-741 PO
[2016-10-05 06:18] VITALS: O2SAT 96; Ht 182.9 cm; Wt 69.7 kg
--- NOTE | 2016-10-05 06:28 | EMERGENCY ROOM VISIT NOTE ---
History First contact with patient: 06:23 Chief Complaint: SYNCOPE Stated Complaint: FALL/NOSEBLEED History of Present Illness The patient is a 55 year old male prisoner who presents to the Emergency Room with complaints of "passing out" Patient is a poor historian. Questions repeated multiple times, with minimal yes /no responses given Patient had gone from sitting to standing, and started walking when he began feeling lightheaded and fell. He does not recall the fall and the fall was otherwise unwitnessed, but patient says he had a large nose bleed after. He also states that he has a headache in his temples currently. He denies pain elsewhere Patient states he has feelings of lightheadedness often. Denies feeling SOB, CP, palpitations, or flushing prior to fall Guards who found him thought that he was having a seizure because he was " moving around" - but current guards are unsure of any more details than this, including approximate timing or duration of fall. Patient denies abdominal pain, nausea or vomiting. Does state that he has chronic leg pain. Review of Systems See HPI for pertinent positives and negatives. A total of ten systems were reviewed and were otherwise negative, as per patient. Past Medical/Surgical History Medical Problems: (1) Acute kidney failure (2) acute on chronic renal failure, syncope (3) Altered mental status (4) Altered mental status (5) Bipolar disorder (6) Cirrhosis (7) Mouth cancer (8) Oral cancer (9) Tobacco abuse Social History Problems: (1) Alcohol abuse Family History Patient reports no known family medical history. Social History Smoking Status: Current Some Day Smoker Drug Use: other Marital Status: single Housing Status: other Occupation Status: other Current/Historical Medications Scheduled Duloxetine HCl (Cymbalta), 60 MG PO DAILY Enteral Nutrition Formula (Ensure Plus Vanilla), 1 CAN PO TID Fentanyl (Fentanyl), 100 MCG TOP Q3D Ferrous Sulfate (Kp Ferrous Sulfate), 1 TAB PO BID Folic Acid (Folvite), 1 MG PO DAILY Lactulose (Chronulac), 30 ML PO TID Lidocaine Hcl (Mouth-Throat) (Lidocaine Viscous), 10 ML TOP TID Lorazepam (Ativan), 0.5 MG PO HS Mirtazapine Soltab (Remeron Soltab), 30 MG PO HS Morphine Sulfate Ir (Morphine Sulfate Ir), 2 TAB PO Q6H Neomycin-Bacitracin Zn-Polymyx (Triple Antibiotic), 1 APPLN TOP BID Omeprazole (Omeprazole), 1 TAB PO BID Scheduled PRN Diphenhydramine Hcl (Benadryl), 50 MG PO TID PRN for Itching Oxycodone/Acetaminophen 10MG/325MG (Percocet 10MG/325MG), 3 TABS PO Q6 PRN for Pain [Magic Mouth Wash], 10 ML PO QID PRN for UNDECIDED Physical Exam Vital Signs Date Time Temp Pulse Resp B/P (MAP) Pulse Ox O2 Delivery O2 Flow Rate FiO2 10/05/16 11:46 36.6 100 18 117/73 96 10/05/16 11:44 36.6 100 18 117/73 96 10/05/16 10:24 100 10/05/16 06:46 18 117/73 96 Room Air 10/05/16 06:26 97 10/05/16 06:18 36.6 98 18 142/86 97 Room Air 10/05/16 06:18 96 Room Air Physical Exam GENERAL: somnolent but arousable, appropriately responding to questions upon repetition, lying in bed, no acute distress, non-toxic HEAD: Normocephalic, evidence of trauma with bandage over left eyebrow. No sinus tenderness. EYES: PERRL, EOMI, normal conjunctiva, bruising and swelling around right eye, minimal drooping. Laceration over right eyebrow. OROPHARYNX: no exudate, no erythema, lips, buccal mucosa normal. Tongue covered in dry blood likely from previous epistaxis from fall and mucous membranes are dry. Nares dry and patent. Dysphagia test negative. NECK: supple, no nuchal rigidity, no adenopathy, tenderness on palpation all over, as per patient LUNGS: Clear to auscultation. Normal chest wall mechanics, good air entry. No crepitations, crackles, or wheezes HEART: no murmurs, S1 and S2 normal CHEST: No reproducible tenderness. ABDOMEN: abdomen soft, tender to palpation diffusely, normo-active bowel sounds , no masses, no rebound or guarding. BACK: Back is symmetrical on inspection, no deformities, no midline tenderness, no CVA tenderness. SKIN: Warm, pink, dry. No erythema or rashes. Periorbital bruising of left eye. UPPER EXTREMITIES: Upper extremities are grossly normal. Strength 5/5 LOWER EXTREMITIES: Swelling of right lower leg, with circumferential discrepancy at tibial tuberosity. Calves non tender. Strength 5/5 bilaterally NEURO: Alert, Ox3. No focal deficits. Normal sensorium, cranial nerves II-XII grossly intact, normal speech. Kernig and Brudzinski negative PSYCH: Mood and affect appropriate. Medical Decision & Procedures ER Provider Diagnostic Interpretation: CT HEAD WITHOUT CONTRAST (CT) CLINICAL HISTORY: Head trauma. Syncope. Head laceration. COMPARISON STUDY: 04/16/2016 TECHNIQUE: Axial CT of the brain is performed from the vertex to the skull base. IV contrast was not administered for this examination. A dose lowering technique was utilized adhering to the principles of ALARA. CT DOSE: FINDINGS: There is acute subarachnoid hemorrhage in the right sylvian fissure region. There are associated areas of parenchymal contusion involving the right parietal and temporal lobes. There is acute hemorrhage also visualized within the left perimesencephalic cistern. There may be a small amount of hemorrhage within the left tentorium anteriorly. There is a small hyperdense focus in the region of the anterior communicating artery. There are patchy white matter hypodensities likely on a small vessel basis. There is no evidence of pathologic ventricular dilatation. There is near complete opacification of the right maxillary sinus. There is a left maxilla sinus air-fluid level. There is a nasal bone fracture, likely old. There is a large left frontal scalp hematoma. IMPRESSION: 1. Acute subarachnoid hemorrhage in the region of the right sylvian fissure. There are associated areas of parenchymal contusion involving the right parietal and temporal lobes. 2. Acute hemorrhage in the left perimesencephalic cistern. Possible small subdural hemorrhage within the left anterior tentorium 3. Left frontal scalp hemorrhage and edema 4. Opacified right maxillary sinus. Left maxillary sinus air-fluid level. CT OF THE CERVICAL SPINE CLINICAL HISTORY: Neck pain status post trauma. History of nasopharyngeal carcinoma. COMPARISON STUDY: No previous studies for comparison. CT DOSE: 2072.50 mGy.cm TECHNIQUE: CT scan of the cervical spine was performed from the skull base to the thoracic inlet. Images are reviewed in the axial, sagittal, and coronal planes. IV contrast was not administered for this examination. A dose lowering technique was utilized adhering to the principles of ALARA. FINDINGS: The visualized portions of the lung apices reveal no evidence of pneumothorax. The prevertebral soft tissues are normal. No fractures or subluxations are visualized. There are moderately advanced multilevel degenerative changes IMPRESSION: No evidence of acute fracture or traumatic subluxation. CT SCAN OF THE ABDOMEN AND PELVIS WITHOUT CONTRAST CLINICAL HISTORY: Abdominal pain status post trauma COMPARISON STUDY: No previous studies for comparison. TECHNIQUE: CT scan of the abdomen and pelvis was performed from the lung bases to the proximal femurs. Images are reviewed in the axial, sagittal, and coronal planes. IV contrast was not administered for this examination. A dose lowering technique was utilized adhering to the principles of ALARA. CT DOSE: FINDINGS: Lower chest: There are coronary artery calcifications present. There are nonspecific right basilar airspace opacities, likely atelectatic although an inflammatory process could appear similar Liver: The liver has a cirrhotic morphology. No masses are visualized in this noncontrast study Gallbladder: There are multiple gallstones. The gallbladder is distended. Spleen: There is moderate splenomegaly. The spleen measures 16 cm. Pancreas: Unremarkable. Adrenal glands: Unremarkable. Kidneys: No renal, ureteral, or bladder calculi are visualized Bowel: Evaluation the bowel is limited given the lack of intravenous and significant oral contrast. There is diverticulosis. There are no transition zones indicate bowel obstruction. There are no extraluminal air collections. Peritoneum: There is mild ascites. No free air is visualized. There is a small umbilical hernia. Vasculature: There is no evidence of abdominal aortic dilatation. Upper abdominal varices are suspected. Adenopathy: None. Pelvic viscera: The bladder, and pelvic viscera are unremarkable. Skeletal structures: No destructive osseous lesions are seen. IMPRESSION: 1. Study limited by the lack of intravenous contrast 2. Cirrhotic liver morphology with ascites, upper abdominal varices, and splenomegaly 3. Cholelithiasis. Distended gallbladder 4. No evidence of bowel obstruction. No evidence of free air 5. No renal, ureteral, or bladder calculi identified 6. No evidence of intra-abdominal or pelvic injury given the limitations of a noncontrast study 7. Minor basilar airspace opacities likely atelectatic although an inflammatory process could appear similar CHEST ONE VIEW PORTABLE CLINICAL HISTORY: syncope COMPARISON STUDY: 04/15/2016 FINDINGS: The cardiac and mediastinal contours are normal. There is no evidence of focal pulmonary consolidation. There is no evidence of failure. No pleural effusions are visualized.[ There are old right-sided rib fractures. There is minor right basilar atelectasis. IMPRESSION: No active disease in the chest. Laboratory Results 10/05/16 07:20 Red Blood Count 2.07, Mean Corpuscular Volume 101.4, Mean Corpuscular Hemoglobin 35.3, Mean Corpuscular Hemoglobin Concent 34.8, Mean Platelet Volume 9.9, Neutrophils (%) (Auto) 86.7, Lymphocytes (%) (Auto) 6.1, Monocytes (%) ( Auto) 5.3, Eosinophils (%) (Auto) 1.3, Basophils (%) (Auto) 0.3, Neutrophils # ( Auto) 3.27, Lymphocytes # (Auto) 0.23, Monocytes # (Auto) 0.20, Eosinophils # ( Auto) 0.05, Basophils # (Auto) 0.01 10/05/16 07:20 Test 10/05/16 07:20 10/05/16 08:00 White Blood Count 3.77 K/uL (4.8-10.8) Red Blood Count 2.07 M/uL (4.7-6.1) Hemoglobin 7.3 g/dL (14.0-18.0) Hematocrit 21.0 % (42-52) Mean Corpuscular Volume 101.4 fL (80-100) Mean Corpuscular Hemoglobin 35.3 pg (25-34) Mean Corpuscular Hemoglobin Concent 34.8 g/dl (32-36) Platelet Count 39 K/uL (130-400) Mean Platelet Volume 9.9 fL (7.4-10.4) Neutrophils (%) (Auto) 86.7 % Lymphocytes (%) (Auto) 6.1 % Monocytes (%) (Auto) 5.3 % Eosinophils (%) (Auto) 1.3 % Basophils (%) (Auto) 0.3 % Neutrophils # (Auto) 3.27 K/uL (1.4-6.5) Lymphocytes # (Auto) 0.23 K/uL (1.2-3.4) Monocytes # (Auto) 0.20 K/uL (0.11-0.59) Eosinophils # (Auto) 0.05 K/uL (0-0.5) Basophils # (Auto) 0.01 K/uL (0-0.2) RDW Standard Deviation 72.8 fL (36.4-46.3) RDW Coefficient of Variation 19.4 % (11.5-14.5) Immature Granulocyte % (Auto) 0.3 % Immature Granulocyte # (Auto) 0.01 K/uL (0.00-0.02) Anisocytosis PRESENT Anion Gap 4.0 mmol/L (3-11) Est Creatinine Clear Calc Drug Dose 37.0 ml/min Estimated GFR () 37.4 Estimated GFR (Non- 32.3 BUN/Creatinine Ratio 13.4 (10-20) Calcium Level 8.6 mg/dl (8.5-10.1) Troponin I 0.015 ng/ml (0-0.045) Urine Color YELLOW Urine Appearance CLEAR (CLEAR) Urine pH 5.0 (4.5-7.5) Urine Specific Blanchard 1.021 (1.000-1.030) Urine Protein NEG (NEG) Urine Glucose (UA) NEG (NEG) Urine Ketones NEG (NEG) Urine Occult Blood NEG (NEG) Urine Nitrite NEG (NEG) Urine Bilirubin NEG (NEG) Urine Urobilinogen NEG (NEG) Urine Leukocyte Esterase NEG (NEG) Medications Administered Medications (Trade) Dose Ordered Sig/Ivan Route Start Time Stop Time Status Last Admin Dose Admin Sodium Chloride 500 ml @ 250 mls/hr Q2H IV 10/05/16 08:30 10/05/16 12:07 DC 10/05/16 08:30 250 MLS/HR Sodium Chloride 500 ml @ 250 mls/hr Q2H ONCE IV 10/05/16 09:15 10/05/16 11:14 DC 10/05/16 09:26 250 MLS/HR Acetaminophen 100 ml @ 400 mls/hr TODAY@0915 IV 10/05/16 09:15 10/05/16 12:07 DC 10/05/16 09:25 400 MLS/HR ED Course 0640: The patient was evaluated in room B6. A complete history and physical exam was performed. 0716: Labs and imaging ordered 0830: NSS fluid bolus ordered 0840: CT results reviewed. Patient informed of results and questions answered. Patient and guards informed of need to transfer 0915: Patient reassessed. Less somnolent, more alert and aware. Requesting pain medication for headache. IV Tylenol ordered 0940: Discussed patient with Dr. Arreola from [facility], who was agreeable to transfer to level II trauma. Was informed that platelet transfusion should not be administered if it would delay transfer 1025: Transfer paperwork completed after confirming with [facility] of patient's code status: Patient is FULL CODE. Medical Decision Prior records/ancillary studies reviewed. Triage Nursing notes reviewed. Additional history obtained from retirement guards. The patient's history was concerning for syncope with trauma. Differential diagnosis: Etiologies such as vasovagal event, infection, hypoglycemia, anemia, electrolyte abnormalities, cardiac sources, intracerebral event, toxicologic, neurologic, as well as others were entertained. Physical examination: Head laceration. Sleepy but arousable. Abdominal tenderness. ER treatment provided: IV hydration with normal saline IV Tylenol for headache On reassessment the patient felt better. Diagnostics interpretation by me: ECG: NSR, without arrhythmia or evidence of ischemic changes. The labs revealed anemia 7.3 (down from 7.7 last week), thrombocytopenia 39 (up from 36 last week), leukopenia 3.77 (up from 2.92 last week). Creatinine 2.2 (~ baseline), BUN 29 (stable) - likely leukemia, not previously worked up as patient left hospital AMA. Of note, patient also has history of malignant nasopharyngeal cancer. Imaging studies: Evidence of intracranial hemorrhage. No fracture or subluxation of cervical spine. Abdominal CT without contrast negative for injury. Consultation: A consultation was placed with the [facility] trauma physician. The case was discussed and diagnostics were reviewed, and plan was made for transfer. This appears to be consistent with intracranial hemorrhage post fall. By the evaluation outlined above emergent etiologies such as infection, hypoglycemia, electrolyte abnormalities, cardiac sources, intracerebral event, toxicologic, neurologic,as well as others were deemed relatively unlikely. The patient and guards informed about the findings as listed above. All questions were answered. Head Trauma GCS Score: 14 Blood Pressure Screening Patient's blood pressure: Normal blood pressure Impression Primary Impression: Intracranial hemorrhage Additional Impressions: Syncope and collapse Anemia Departure Information Dispostion Transfer Acute Care Facility Condition FAIR Referrals Giovanny VILLA (PCP) Patient Instructions My [facility] [address] Resident Tracking Resident Involvement: Resident Care Provided Care Provided: Adult ED Problem Qualifiers
[2016-10-05] MEDS ORDERED: FERR1TAB13 PO (06:43)
[2016-10-05] MEDS ORDERED: FOLI1TAB7 PO (06:44)
[2016-10-05 07:39] LABS: MEAN CELL VOLUME 101.4 fL (80-100); MEAN CORPUSCULAR HEMOGLOBIN 35.3 pg (25-34); MEAN CORPUSCULAR HGB CONC 34.8 g/dl (32-36); RED BLOOD COUNT 2.07 M/uL (4.7-6.1); WHITE BLOOD COUNT 3.77 K/uL (4.8-10.8)
--- NOTE | 2016-10-05 07:41 | DIAGNOSTIC IMAGING REPORT ---
CHEST ONE VIEW PORTABLE CLINICAL HISTORY: syncope COMPARISON STUDY: 04/15/2016 FINDINGS: The cardiac and mediastinal contours are normal. There is no evidence of focal pulmonary consolidation. There is no evidence of failure. No pleural effusions are visualized.[ There are old right-sided rib fractures. There is minor right basilar atelectasis. IMPRESSION: No active disease in the chest. Electronically signed by: Yousuf Alvarado M.D. 10/05/2016 7:40 AM Dictated Date/Time: 10/05/2016 7:39 AM
[2016-10-05 07:48] LABS: BUN/CREATININE RATIO 13.4 (10-20); CALCIUM 8.6 mg/dl (8.5-10.1); CREATININE 2.2 mg/dl (0.60-1.40); POTASSIUM 4.4 mmol/L (3.5-5.1)
[2016-10-05 08:02] LABS: MEAN PLATELET VOLUME 9.9 fL (7.4-10.4); PLATELET COUNT 39 K/uL (130-400)
[2016-10-05 08:10] LABS: ANISOCYTOSIS PRESENT; BASO % 0.3 %; BASO ABS # 0.01 K/uL (0-0.2); COMPLETE YES; EOS % 1.3 %; IG% 0.3 %; LYMPH % 6.1 %; LYMPH ABS # 0.23 K/uL (1.2-3.4); MONO % 5.3 %; NEUT % 86.7 %
[2016-10-05 08:15] LABS: URINE APPEARANCE CLEAR (CLEAR); URINE BILIRUBIN NEG (NEG); URINE COLOR YELLOW; URINE NITRITE NEG (NEG); URINE SPECIFIC GRAVITY 1.021 (1.000-1.030); UROBILINOGEN NEG (NEG); ZZUR CULT IF INDIC CLEAN CATCH NO
[2016-10-05 08:22] LABS: MANUAL MICROSCOPIC REQUIRED? NO; REVIEW REQ? NO
[2016-10-05] MEDS ORDERED: SODIUM CHLORIDE 0.9% 500ML 500 ML IV SCH (08:30)
--- NOTE | 2016-10-05 08:42 | DIAGNOSTIC IMAGING REPORT ---
CT HEAD WITHOUT CONTRAST (CT) CLINICAL HISTORY: Head trauma. Syncope. Head laceration. COMPARISON STUDY: 04/16/2016 TECHNIQUE: Axial CT of the brain is performed from the vertex to the skull base. IV contrast was not administered for this examination. A dose lowering technique was utilized adhering to the principles of ALARA. CT DOSE: FINDINGS: There is acute subarachnoid hemorrhage in the right sylvian fissure region. There are associated areas of parenchymal contusion involving the right parietal and temporal lobes. There is acute hemorrhage also visualized within the left perimesencephalic cistern. There may be a small amount of hemorrhage within the left tentorium anteriorly. There is a small hyperdense focus in the region of the anterior communicating artery. There are patchy white matter hypodensities likely on a small vessel basis. There is no evidence of pathologic ventricular dilatation. There is near complete opacification of the right maxillary sinus. There is a left maxilla sinus air-fluid level. There is a nasal bone fracture, likely old. There is a large left frontal scalp hematoma. IMPRESSION: 1. Acute subarachnoid hemorrhage in the region of the right sylvian fissure. There are associated areas of parenchymal contusion involving the right parietal and temporal lobes. 2. Acute hemorrhage in the left perimesencephalic cistern. Possible small subdural hemorrhage within the left anterior tentorium 3. Left frontal scalp hemorrhage and edema 4. Opacified right maxillary sinus. Left maxillary sinus air-fluid level. Electronically signed by: Yousuf Alvarado M.D. 10/05/2016 8:41 AM Dictated Date/Time: 10/05/2016 8:35 AM
--- NOTE | 2016-10-05 08:45 | DIAGNOSTIC IMAGING REPORT ---
CT OF THE CERVICAL SPINE CLINICAL HISTORY: Neck pain status post trauma. History of nasopharyngeal carcinoma. COMPARISON STUDY: No previous studies for comparison. CT DOSE: 2072.50 mGy.cm TECHNIQUE: CT scan of the cervical spine was performed from the skull base to the thoracic inlet. Images are reviewed in the axial, sagittal, and coronal planes. IV contrast was not administered for this examination. A dose lowering technique was utilized adhering to the principles of ALARA. FINDINGS: The visualized portions of the lung apices reveal no evidence of pneumothorax. The prevertebral soft tissues are normal. No fractures or subluxations are visualized. There are moderately advanced multilevel degenerative changes IMPRESSION: No evidence of acute fracture or traumatic subluxation. Electronically signed by: Yousuf Alvarado M.D. 10/05/2016 8:44 AM Dictated Date/Time: 10/05/2016 8:41 AM
--- NOTE | 2016-10-05 08:52 | DIAGNOSTIC IMAGING REPORT ---
CT SCAN OF THE ABDOMEN AND PELVIS WITHOUT CONTRAST CLINICAL HISTORY: Abdominal pain status post trauma COMPARISON STUDY: No previous studies for comparison. TECHNIQUE: CT scan of the abdomen and pelvis was performed from the lung bases to the proximal femurs. Images are reviewed in the axial, sagittal, and coronal planes. IV contrast was not administered for this examination. A dose lowering technique was utilized adhering to the principles of ALARA. CT DOSE: FINDINGS: Lower chest: There are coronary artery calcifications present. There are nonspecific right basilar airspace opacities, likely atelectatic although an inflammatory process could appear similar Liver: The liver has a cirrhotic morphology. No masses are visualized in this noncontrast study Gallbladder: There are multiple gallstones. The gallbladder is distended. Spleen: There is moderate splenomegaly. The spleen measures 16 cm. Pancreas: Unremarkable. Adrenal glands: Unremarkable. Kidneys: No renal, ureteral, or bladder calculi are visualized Bowel: Evaluation the bowel is limited given the lack of intravenous and significant oral contrast. There is diverticulosis. There are no transition zones indicate bowel obstruction. There are no extraluminal air collections. Peritoneum: There is mild ascites. No free air is visualized. There is a small umbilical hernia. Vasculature: There is no evidence of abdominal aortic dilatation. Upper abdominal varices are suspected. Adenopathy: None. Pelvic viscera: The bladder, and pelvic viscera are unremarkable. Skeletal structures: No destructive osseous lesions are seen. IMPRESSION: 1. Study limited by the lack of intravenous contrast 2. Cirrhotic liver morphology with ascites, upper abdominal varices, and splenomegaly 3. Cholelithiasis. Distended gallbladder 4. No evidence of bowel obstruction. No evidence of free air 5. No renal, ureteral, or bladder calculi identified 6. No evidence of intra-abdominal or pelvic injury given the limitations of a noncontrast study 7. Minor basilar airspace opacities likely atelectatic although an inflammatory process could appear similar Electronically signed by: Yousuf Alvarado M.D. 10/05/2016 8:51 AM Dictated Date/Time: 10/05/2016 8:44 AM
[2016-10-05] MEDS ORDERED: ACETAMINOPHEN IV 1000MG/100ML IV SCH (09:15)
[2016-10-05] MEDS ORDERED: SODIUM CHLORIDE 0.9% 500ML 500 ML IV ONE (09:15)
--- NOTE | 2016-10-05 11:00 | EMERGENCY ROOM VISIT NOTE ---
ED Visit Note First contact with patient: 06:23 Resident Physician Supervision Note: I interviewed and examined the patient. Discussed with Dr. Bolivar and agree with findings and plan as documented in the note. Any exceptions or clarifications are listed here: This patient was evaluated and appeared to be awake, but slightly somnolent. He does answer most questions appropriately. He has a hematoma to the left forehead without active bleeding. There is no tenderness to the cervical spine. No significant abdominal tenderness to my exam. Laboratory work was reviewed and although the patient is anemic with a thrombocytopenia, his blood counts are stable. CT scan of the head was performed and is read as subarachnoid with possible subdural, acute hemorrhage in the left perimesencephalic cistern. The case was reviewed with Dr. Bolivar. Transfer arrangements to [facility] are underway. Platelet transfusions will not be performed here [facility] due to the likelihood of delay in transfer. Diagnosis: ICH, thrombocytopenia, anemia, fall with CHI I have personally spent greater than 45 minutes of critical care time in the direct management of this patient. This includes bedside care, interpretation of diagnostic studies, and testing, discussion with consultants, patient, and family members, and other required patient management activities. This 45 minutes is in excess of all separately billable procedures. Documented By: Deja Carreon
[2016-10-05 11:46] VITALS: BP 117/73; PULSE 100; TEMP 36.6; O2SAT 96
== END 2016-10-05 11:45 | disposition short-term general hospital (02) ==
LOC: EDBD 06:10 → C.EDB 06:12
DX: S06.309A Unspecified focal traumatic brain injury with loss of consciousness of unspecified duration, initial encounter (principal); R55 Syncope and collapse; D64.9 Anemia, unspecified; W19.XXXA Unspecified fall, initial encounter; Y93.01 Activity, walking, marching and hiking; Y99.8 Other external cause status; Y92.149 Unspecified place in prison as the place of occurrence of the external cause; N18.9 Chronic kidney disease, unspecified; K74.60 Unspecified cirrhosis of liver; F17.200 Nicotine dependence, unspecified, uncomplicated; Z85.818 Personal history of malignant neoplasm of other sites of lip, oral cavity, and pharynx; D69.6 Thrombocytopenia, unspecified

== ENCOUNTER 2016-10-17 20:45 | Inpatient (IN) | payer OTHER ==
[~2016-10-17] VITALS: Ht 182.9 cm; Wt 87.0 kg
[~2016-10-17 20:45] MED LIST changes: -CITRATE OF MAGNESIA; +FERR1TAB13 PO; -FERR325T5 PO; -FLV1 PO; +FOLI1TAB7 PO
[2016-10-17 22:45] LABS: HEMATOCRIT 23.6 % (42-52); MEAN CELL VOLUME 96.3 fL (80-100); MEAN CORPUSCULAR HEMOGLOBIN 33.9 pg (25-34); MEAN CORPUSCULAR HGB CONC 35.2 g/dl (32-36); RED BLOOD COUNT 2.45 M/uL (4.7-6.1); WHITE BLOOD COUNT 11.52 K/uL (4.8-10.8)
[2016-10-17 22:47] LABS: MEAN PLATELET VOLUME 10.3 fL (7.4-10.4); PLATELET COUNT 32 K/uL (130-400)
[2016-10-17 22:53] LABS: BUN/CREATININE RATIO 16.3 (10-20); CALCIUM 8.6 mg/dl (8.5-10.1); MAGNESIUM 1.6 mg/dl (1.8-2.4)
[2016-10-17 22:56] LABS: ALB/GLOB RATIO 0.9 (0.9-2); INR 1.2 (0.9-1.1); PARTIAL THROMBOPLASTIN RATIO 1.1; PROTHROMBIN TIME (PATIENT) 13.4 SECONDS (9.0-12.0)
[2016-10-17 23:10] LABS: ANISOCYTOSIS PRESENT; BASO % 0.1 %; BASO ABS # 0.01 K/uL (0-0.2); COMPLETE YES; IG% 0.3 %; LYMPH % 2.1 %; LYMPH ABS # 0.24 K/uL (1.2-3.4); MONO % 4.8 %; NEUT % 92.7 %; OVALOCYTES 1+; POLYCHROMASIA 1+; TOXIC GRANULATION 1+; VACUOLIZATION 1+
--- NOTE | 2016-10-17 23:15 | DIAGNOSTIC IMAGING REPORT ---
CHEST ONE VIEW PORTABLE CLINICAL HISTORY: 55 years-old Male presenting with tachycardia. TECHNIQUE: Portable upright AP view of the chest was obtained. COMPARISON: 10/05/2016. FINDINGS: Cardiomediastinal silhouette normal. Interval development of right basilar opacity. No large effusion or pneumothorax. Osseous structures normal. Gaseous distention of colon below the right hemidiaphragm. IMPRESSION: 1. Findings concerning for right lower lobe pneumonia. Electronically signed by: Yao Mueller M.D. 10/17/2016 11:13 PM Dictated Date/Time: 10/17/2016 11:12 PM
[2016-10-17] MEDS ORDERED: RIFA550T2 PO (23:24)
[2016-10-17] MEDS ORDERED: SODIUM CHLORIDE 0.9% 1000ML 1,000 ML IV STA (23:25)
--- NOTE | 2016-10-17 23:26 | EMERGENCY ROOM VISIT NOTE ---
History Report prepared by Nasir: Pranav Maldonado Under the Supervision of: Dr. Amol Whiting M.D. First contact with patient: 22:38 Chief Complaint: ILLNESS Stated Complaint: NAUSEA, VOMITING, EDEMA R LEG History of Present Illness The patient is a 55 year old white male with a past medical history of bipolar disorder, CKD, oral cancer, hepatitis C, cirrhosis, and end stage liver disease who presents to the ED with a cc of generalized illness beginning a couple of weeks ago. Positive cough, chest pain, shortness of breath, abdominal pain, nausea, vomiting, weight loss, bilateral leg edema, and a recent fall. Negative abnormal urinary symptoms. His bilateral leg edema has been chronic for a few years. Source of History: patient Onset: a couple of weeks Position: other (global) Symptom Intensity: moderate Quality: other (Illness - general) Timing: worsening Associated Symptoms: + cough, + chest pain, + SOB, + nausea, + vomiting, + abdominal pain, No urinary symptoms Note: He has bilateral lower extremity edema. Review of Systems See HPI for pertinent positives and negatives. A total of ten systems were reviewed and were otherwise negative. Past Medical & Surgical Medical Problems: (1) Abdominal pain (2) Acute kidney failure (3) acute on chronic renal failure, syncope (4) Altered mental status (5) Altered mental status (6) Bipolar disorder (7) Cirrhosis (8) Mouth cancer (9) Oral cancer (10) Tobacco abuse Social History Problems: (1) Alcohol abuse Family History Patient reports no known family medical history. Social History Smoking Status: Current Every Day Smoker Smokeless Tobacco Use: No Alcohol Use: none Drug Use: other Marital Status: single Housing Status: other Occupation Status: other Current/Historical Medications Scheduled Duloxetine HCl (Cymbalta), 60 MG PO DAILY Emollient Ointment (Aquaphor), 1 APPLN TOP TID Enteral Nutrition Formula (Ensure Plus Vanilla), 1 CAN PO TID Epoetin Kirill (Epogen), 5,000 UNIT INJ 3XWK Fentanyl (Fentanyl), 100 MCG TOP Q3D Ferrous Sulfate (Ferrous Sulfate), 325 MG PO BID Folic Acid (Folvite), 1 MG PO DAILY Lactulose (Chronulac), 30 ML PO QID Lidocaine Hcl (Mouth-Throat) (Lidocaine Viscous), 10 ML TOP TID Lorazepam (Ativan), 0.5 MG PO HS Mirtazapine (Mirtazapine), 45 MG PO HS Neomycin-Bacitracin Zn-Polymyx (Triple Antibiotic), 1 APPLN TOP BID Omeprazole (Omeprazole), 20 MG PO BID Rifaximin (Xifaxan), 550 MG PO BID Scheduled PRN Diphenhydramine Hcl (Benadryl), 50 MG PO TID PRN for Itching Ondansetron Hcl (Zofran), 4 MG PO TID PRN for Nausea Oxycodone/Acetaminophen 10MG/325MG (Percocet 10MG/325MG), 3 TABS PO Q6 PRN for Pain [Magic Mouth Wash], 10 ML PO QID PRN for UNDECIDED Allergies Coded Allergies: No Known Allergies (Unverified , 10/17/16) Physical Exam Vital Signs Date Time Temp Pulse Resp B/P (MAP) Pulse Ox O2 Delivery O2 Flow Rate FiO2 10/18/16 01:05 91 10/17/16 23:53 84 20 140/77 94 Room Air 10/17/16 22:23 90 20 110/76 94 Room Air 10/17/16 21:48 94 Room Air 10/17/16 21:46 93 10/17/16 20:55 37.0 97 22 149/87 95 Room Air Physical Exam GENERAL: Awake, alert, chronically ill-appearing, NAD, emaciated HENT: Normocephalic, atraumatic. EYES: Normal conjunctiva. Sclera non-icteric. NECK: Supple. No nuchal rigidity. FROM. RESPIRATORY: CTAB, no rhonchi, wheezing, crackles CARDIAC: RRR, no MRG ABDOMEN: Soft, mild RUQ tenderness to palpation, ND, BS+ MSK: No chest wall TTP, bilateral LE 4+ pitting edema NEURO: GCS 15, CN 2-12 intact, moves all 4s on command SKIN: No rash or jaundice noted. Medical Decision & Procedures ER Provider Diagnostic Interpretation: Radiology results as stated below per my review and radiologist interpretation: CHEST ONE VIEW PORTABLE CLINICAL HISTORY: 55 years-old Male presenting with tachycardia. TECHNIQUE: Portable upright AP view of the chest was obtained. COMPARISON: 10/05/2016. FINDINGS: Cardiomediastinal silhouette normal. Interval development of right basilar opacity. No large effusion or pneumothorax. Osseous structures normal. Gaseous distention of colon below the right hemidiaphragm. IMPRESSION: 1. Findings concerning for right lower lobe pneumonia. Electronically signed by: Yao Mueller M.D. 10/17/2016 11:13 PM Dictated Date/Time: 10/17/2016 11:12 PM Laboratory Results 10/17/16 21:45 Red Blood Count 2.45, Mean Corpuscular Volume 96.3, Mean Corpuscular Hemoglobin 33.9, Mean Corpuscular Hemoglobin Concent 35.2, Mean Platelet Volume 10.3, Neutrophils (%) (Auto) 92.7, Lymphocytes (%) (Auto) 2.1, Monocytes (%) (Auto) 4.8, Eosinophils (%) (Auto) 0.0, Basophils (%) (Auto) 0.1, Neutrophils # (Auto) 10.68, Lymphocytes # (Auto) 0.24, Monocytes # (Auto) 0.55, Eosinophils # (Auto) 0.00, Basophils # (Auto) 0.01 10/17/16 21:45 Test 10/17/16 21:45 10/17/16 23:58 White Blood Count 11.52 K/uL (4.8-10.8) Red Blood Count 2.45 M/uL (4.7-6.1) Hemoglobin 8.3 g/dL (14.0-18.0) Hematocrit 23.6 % (42-52) Mean Corpuscular Volume 96.3 fL (80-100) Mean Corpuscular Hemoglobin 33.9 pg (25-34) Mean Corpuscular Hemoglobin Concent 35.2 g/dl (32-36) Platelet Count 32 K/uL (130-400) Mean Platelet Volume 10.3 fL (7.4-10.4) Neutrophils (%) (Auto) 92.7 % Lymphocytes (%) (Auto) 2.1 % Monocytes (%) (Auto) 4.8 % Eosinophils (%) (Auto) 0.0 % Basophils (%) (Auto) 0.1 % Neutrophils # (Auto) 10.68 K/uL (1.4-6.5) Lymphocytes # (Auto) 0.24 K/uL (1.2-3.4) Monocytes # (Auto) 0.55 K/uL (0.11-0.59) Eosinophils # (Auto) 0.00 K/uL (0-0.5) Basophils # (Auto) 0.01 K/uL (0-0.2) RDW Standard Deviation 74.2 fL (36.4-46.3) RDW Coefficient of Variation 22.5 % (11.5-14.5) Immature Granulocyte % (Auto) 0.3 % Immature Granulocyte # (Auto) 0.04 K/uL (0.00-0.02) Toxic Granulation 1+ Toxic Vacuolation 1+ Polychromasia 1+ Anisocytosis PRESENT Ovalocytes 1+ Prothrombin Time 13.4 SECONDS (9.0-12.0) Prothromb Time International Ratio 1.2 (0.9-1.1) Activated Partial Thromboplast Time 28.6 SECONDS (21.0-31.0) Partial Thromboplastin Ratio 1.1 Anion Gap 9.0 mmol/L (3-11) Est Creatinine Clear Calc Drug Dose 45.3 ml/min Estimated GFR () 42.0 Estimated GFR (Non- 36.2 BUN/Creatinine Ratio 16.3 (10-20) Calcium Level 8.6 mg/dl (8.5-10.1) Magnesium Level 1.6 mg/dl (1.8-2.4) Total Bilirubin 2.3 mg/dl (0.2-1) Aspartate Amino Transf (AST/SGOT) 26 U/L (15-37) Alanine Aminotransferase (ALT/SGPT) 22 U/L (12-78) Alkaline Phosphatase 119 U/L (45-117) Total Protein 5.6 gm/dl (6.4-8.2) Albumin 2.7 gm/dl (3.4-5.0) Globulin 2.9 gm/dl (2.5-4.0) Albumin/Globulin Ratio 0.9 (0.9-2) Venous Blood pH 7.36 (7.36-7.41) Venous Blood Partial Pressure CO2 44 mmHg (38.0-50.0) Venous Blood Partial Pressure O2 38 mmHg Venous Blood HCO3 24 mmol/L Venous Blood Oxygen Saturation 66.7 % Venous Blood Base Excess -1.0 mEq/L Ammonia 34.0 umol/L (11-32) Laboratory results reviewed by me Medications Administered Medications (Trade) Dose Ordered Sig/Ivan Route Start Time Stop Time Status Last Admin Dose Admin Sodium Chloride 1,000 ml @ 999 mls/hr Q1H1M STAT IV 10/17/16 23:25 10/18/16 00:25 DC 10/17/16 23:25 999 MLS/HR Ceftriaxone Sodium (Rocephin Inj) 1 gm NOW STAT IV 10/17/16 23:39 10/17/16 23:41 DC 10/18/16 00:45 1 GM Azithromycin 500 mg/Dextrose 255 ml @ 125 mls/hr ONE ONCE IV 10/17/16 23:45 10/18/16 01:47 DC 10/18/16 00:46 125 MLS/HR Ondansetron HCl (Zofran Inj) 4 mg STK-MED ONCE .ROUTE 10/18/16 00:57 10/18/16 00:58 DC 10/18/16 00:57 4 MG ECG Indication: nausea, vomiting Rate (beats per minute): 90 Rhythm: normal sinus Findings: PVC (3 of them), other (Normal intervals, normal axis, no st changes or t-wave inversions) ED Course 2238: The patient was evaluated in room B6. A complete history and physical exam was performed. 0143: Upon reexamination, the patient was resting. I discussed the test results and treatment plan with him. The patient will be evaluated by Dr. Armaan MALDONADO for further management. Medical Decision The patient is a 55 year old white male with a past medical history of cancer, hepatitis C, and end stage liver disease who presents to the ED with a cc of generalized illness beginning a couple of weeks ago. Positive cough, chest pain , shortness of breath, abdominal pain, nausea, vomiting, weight loss, bilateral leg edema, and a recent fall. Negative abnormal urinary symptoms. Triage Nursing notes reviewed. The patient's presentation and history were concerning for PNA, dehydration, worsening liver failure, cirrhosis, SBP, and UTI. Patient was seen and evaluated at the bedside. Patient's pain appears to be chronic however patient was sent here as he has had worsening lower extremity swelling and abdominal pain with nausea. Patient was evaluated with blood work as well as a urine and chest x-ray EKG and troponin. Patient's troponin was 0.02. Patient's EKG did not show acute ischemic changes. Patient's chest x- ray was concerning for right lower lobe pneumonia. Patient was treated with Rocephin and azithromycin. Cultures were drawn and patient was given fluids. Unknown as to whether the patient has abdominal fluid in his belly concerning for possible SBP. Patient's abdominal exam was more consistent with right upper quadrant pain which may be explained by his cirrhosis and liver disease. Patient had a meld score of 18. Patient's CURB65 score put him at mildly elevated risk and to consider inpatient treatment. I spoke with the hospitalist who saw the patient and agreed that the patient would benefit from inpatient treatment as opposed to outpatient treatment. Patient was admitted Medication Reconcilliation Current Medication List: was personally reviewed by me Blood Pressure Screening Patient's blood pressure: Normal blood pressure Blood pressure disposition: Did not require urgent referral Consults Time Called: 0140 Consulting Physician: Dr. Armaan MALDONADO Returned Call: [phone] Discussed the patient's case. The patient will be evaluated for further treatment and disposition. Impression Primary Impression: PNA (pneumonia) Additional Impressions: CKD (chronic kidney disease) Hypomagnesemia Thrombocytopenia Scribe Attestation The scribe's documentation has been prepared under my direction and personally reviewed by me in its entirety. I confirm that the note above accurately reflects all work, treatment, procedures, and medical decision making performed by me. Departure Information Dispostion Being Evaluated By Hospitalist Referrals Giovanny VILLA (PCP) Patient Instructions My [facility] Problem Qualifiers Primary Impression: PNA (pneumonia) Pneumonia type: due to unspecified organism Laterality: right Lung location : lower lobe of lung Qualified Codes: J18.1 - Lobar pneumonia, unspecified organism Additional Impressions: CKD (chronic kidney disease) Chronic kidney disease stage: stage 3 (moderate) Qualified Codes: N18.3 - Chronic kidney disease, stage 3 (moderate)
[2016-10-17] MEDS ORDERED: ONDA4TAB46 PO (23:28)
[2016-10-17] MEDS ORDERED: MIRT45TA3 PO (23:31)
[2016-10-17] MEDS ORDERED: FRRS300 PO (23:33)
[2016-10-17] MEDS ORDERED: EPOE10003 INJ (23:35)
[2016-10-17] MEDS ORDERED: [UNRECOGNIZED DRUG - CODE] TOP (23:36)
[2016-10-17] MEDS ORDERED: CEFTRIAXONE SOD INJ 1 GM ADDVIAL IV STA (23:39)
[2016-10-17] MEDS ORDERED: AZITHROMYCIN IV 500 MG in DEXTROSE 5% 250ML 250 ML IV ONE (23:45)
[2016-10-18] VITALS (10 sets, daily range): BP systolic 124–153; BP diastolic 69–83; PULSE 72–85; TEMP 36.3–37; O2SAT 90–98; Ht 182.9 cm; Wt 87.0 kg
[2016-10-18 00:08] LABS: VEN BLD GAS O2 SATURATION 66.7 %
[2016-10-18] MEDS ORDERED: ONDANSETRON INJ 2 MG/ML 2 ML VIAL ONE (00:57)
[2016-10-18] MEDS ORDERED: ZOLPIDEM TARTRATE 5 MG TAB PO PRN (01:30)
[2016-10-18] MEDS ORDERED: MAGNESIUM HYDROXIDE SUSP 30 ML UDC PO PRN (01:30)
[2016-10-18] MEDS ORDERED: ALUMINUM/MAGNESIUM/SIMETH (MAALOX MAX) 30 ML UDC PO PRN (01:30)
[2016-10-18] MEDS ORDERED: ONDANSETRON INJ 2 MG/ML 2 ML VIAL IV STA (01:40)
[2016-10-18] MEDS ORDERED: MAGIC MOUTH WASH PO PRN (01:45)
[2016-10-18] MEDS ORDERED: OXYCODONE/ACETAMINOPHEN 10/325MG TAB PO PRN (01:45)
--- NOTE | 2016-10-18 01:50 | History and Physical ---
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 He notes he has a cough which is non productive and no hemoptysis. He also notes a upper abdominal pain that extends from the epigastric region to both upper left and right quadrants and worsens with movement. He has had intermittent N&V as well. He denies any chest pain or SOB however notes chronic right knee pain which he states is from " [employer]". He denies any change in BM. He notes he has had a very poor appetite. He was recently seen in the ED for an intracranial hemorrhage on October in the setting of thrombocytopenia. He was transferred to [facility] for further management. He currently denies any headache or blurry vision. He is slightly confused and somnolent but arousable during the interview however patient is oriented to self, place and time. He was unaware of the recent intracranial bleed and would mumble statements regarding how he only had a few months to stay in the assisted and did not know why he was being punished. Past Medical/Surgical History Nasopharyngeal cancer Cirrhosis Hepatitis C CKD III Bipolar disorder SI with attempt ESLD Family History Patient reports no known family medical history. Social History Smoking Status: Current Every Day Smoker Smokeless Tobacco Use: No Drug Use: other Marital Status: single Housing status: other Occupational Status: other Multi-Drug Resistant Organisms History of MDRO: Yes Type of MDRO: MRSA Allergies Coded Allergies: No Known Allergies (Unverified , 10/17/16) Home Medications Scheduled Duloxetine HCl (Cymbalta), 60 MG PO DAILY Emollient Ointment (Aquaphor), 1 APPLN TOP TID Enteral Nutrition Formula (Ensure Plus Vanilla), 1 CAN PO TID Epoetin Kirill (Epogen), 5,000 UNIT INJ 3XWK Fentanyl (Fentanyl), 100 MCG TOP Q3D Ferrous Sulfate (Ferrous Sulfate), 325 MG PO BID Folic Acid (Folvite), 1 MG PO DAILY Lactulose (Chronulac), 30 ML PO QID Lidocaine Hcl (Mouth-Throat) (Lidocaine Viscous), 10 ML TOP TID Lorazepam (Ativan), 0.5 MG PO HS Mirtazapine (Mirtazapine), 45 MG PO HS Neomycin-Bacitracin Zn-Polymyx (Triple Antibiotic), 1 APPLN TOP BID Omeprazole (Omeprazole), 20 MG PO BID Rifaximin (Xifaxan), 550 MG PO BID Scheduled PRN Diphenhydramine Hcl (Benadryl), 50 MG PO TID PRN for Itching Ondansetron Hcl (Zofran), 4 MG PO TID PRN for Nausea Oxycodone/Acetaminophen 10MG/325MG (Percocet 10MG/325MG), 3 TABS PO Q6 PRN for Pain [Magic Mouth Wash], 10 ML PO QID PRN for UNDECIDED Review of Systems Constitutional: No fever Eyes: No worsening of vision ENT: No hearing loss Respiratory: + cough, No sputum, No wheezing, No shortness of breath, No dyspnea on exertion, No dyspnea at rest, No hemoptysis Cardiovascular: No chest pain Abdomen: + pain, + nausea, + vomiting, No diarrhea, No constipation, No GI bleeding Musculoskeletal: + swelling, No joint pain, No muscle pain Genitourinary - Male: No hematuria Neurologic: + weakness, + balance problems, No numbness/tingling Psychiatric: No depression symptoms Endocrine: + fatigue Hematologic / Lymphatic: + abnormal bleeding/bruising Integumentary: No rash Physical Exam Vital Signs Date Time Temp Pulse Resp B/P (MAP) Pulse Ox O2 Delivery O2 Flow Rate FiO2 10/18/16 01:05 91 10/17/16 23:53 84 20 140/77 94 Room Air 10/17/16 22:23 90 20 110/76 94 Room Air 10/17/16 21:48 94 Room Air 10/17/16 21:46 93 10/17/16 20:55 37.0 97 22 149/87 95 Room Air General Appearance: no apparent distress, + pertinent finding (somnolent during interview but arousable) Head: normocephalic, atraumatic Eyes: normal inspection ENT: + pertinent finding (adentulous) Neck: supple Respiratory/Chest: no respiratory distress, no accessory muscle use, + pertinent finding (decreased to right base) Cardiovascular: regular rate, rhythm, no murmur, normal peripheral pulses Abdomen/GI: normal bowel sounds, + tenderness (to palpation of the upper abd) Back: normal inspection, no CVA tenderness Extremities/Musculoskelatal: normal inspection, no calf tenderness, + pedal edema (+2 bilat, BL) Neurologic/Psych: oriented x 3, + pertinent finding (flat affect) Skin: warm/dry, no rash, + jaundice (mild), + pertinent finding (multiple tattoos noted, ecchymosis on left eye, left shoulder and right UE) Lymphatic: no adenopathy Diagnostics Laboratory Results Results Past 24 Hours Test 10/17/16 21:45 10/17/16 23:58 Range/Units White Blood Count 11.52 4.8-10.8 K/uL Red Blood Count 2.45 4.7-6.1 M/uL Hemoglobin 8.3 14.0-18.0 g/dL Hematocrit 23.6 42-52 % Mean Corpuscular Volume 96.3 80-100 fL Mean Corpuscular Hemoglobin 33.9 25-34 pg Mean Corpuscular Hemoglobin Concent 35.2 32-36 g/dl Platelet Count 32 130-400 K/uL Mean Platelet Volume 10.3 7.4-10.4 fL Neutrophils (%) (Auto) 92.7 % Lymphocytes (%) (Auto) 2.1 % Monocytes (%) (Auto) 4.8 % Eosinophils (%) (Auto) 0.0 % Basophils (%) (Auto) 0.1 % Neutrophils # (Auto) 10.68 1.4-6.5 K/uL Lymphocytes # (Auto) 0.24 1.2-3.4 K/uL Monocytes # (Auto) 0.55 0.11-0.59 K/uL Eosinophils # (Auto) 0.00 0-0.5 K/uL Basophils # (Auto) 0.01 0-0.2 K/uL RDW Standard Deviation 74.2 36.4-46.3 fL RDW Coefficient of Variation 22.5 11.5-14.5 % Immature Granulocyte % (Auto) 0.3 % Immature Granulocyte # (Auto) 0.04 0.00-0.02 K/uL Toxic Granulation 1+ Toxic Vacuolation 1+ Polychromasia 1+ Anisocytosis PRESENT Ovalocytes 1+ Prothrombin Time 13.4 9.0-12.0 SECONDS Prothromb Time International Ratio 1.2 0.9-1.1 Activated Partial Thromboplast Time 28.6 21.0-31.0 SECONDS Partial Thromboplastin Ratio 1.1 Sodium Level 142 136-145 mmol/L Potassium Level 4.0 3.5-5.1 mmol/L Chloride Level 108 98-107 mmol/L Carbon Dioxide Level 25 21-32 mmol/L Anion Gap 9.0 3-11 mmol/L Blood Urea Nitrogen 33 7-18 mg/dl Creatinine 2.00 0.60-1.40 mg/dl Est Creatinine Clear Calc Drug Dose 45.3 ml/min Estimated GFR () 42.0 Estimated GFR (Non- 36.2 BUN/Creatinine Ratio 16.3 10-20 Random Glucose 103 70-99 mg/dl Calcium Level 8.6 8.5-10.1 mg/dl Magnesium Level 1.6 1.8-2.4 mg/dl Total Bilirubin 2.3 0.2-1 mg/dl Aspartate Amino Transf (AST/SGOT) 26 15-37 U/L Alanine Aminotransferase (ALT/SGPT) 22 12-78 U/L Alkaline Phosphatase 119 45-117 U/L Total Protein 5.6 6.4-8.2 gm/dl Albumin 2.7 3.4-5.0 gm/dl Globulin 2.9 2.5-4.0 gm/dl Albumin/Globulin Ratio 0.9 0.9-2 Venous Blood pH 7.36 7.36-7.41 Venous Blood Partial Pressure CO2 44 38.0-50.0 mmHg Venous Blood Partial Pressure O2 38 mmHg Venous Blood HCO3 24 mmol/L Venous Blood Oxygen Saturation 66.7 % Venous Blood Base Excess -1.0 mEq/L Ammonia 34.0 11-32 umol/L Microbiology Results 10/17/16 Blood Culture, Received Pending 10/17/16 Blood Culture, Received Pending Diagnostic Radiology CHEST ONE VIEW PORTABLE CLINICAL HISTORY: 55 years-old Male presenting with tachycardia. TECHNIQUE: Portable upright AP view of the chest was obtained. COMPARISON: 10/05/2016. FINDINGS: Cardiomediastinal silhouette normal. Interval development of right basilar opacity. No large effusion or pneumothorax. Osseous structures normal. Gaseous distention of colon below the right hemidiaphragm. IMPRESSION: 1. Findings concerning for right lower lobe pneumonia. EKG Sinus rhythm with occasional Premature ventricular complexes Otherwise normal ECG When compared with ECG of 05-OCT-2016 06:35, Premature ventricular complexes are now Present Impression Assessment and Plan This is a 55 yo m with a significant past medical history of ESLD, CKDIII, Hep C , recent subarachnoid hemorrhage presenting to us with a right sided pneumonia and abdominal pain. PSI is 126 so appropriate for inpatient management. MELD is 18 reflecting a 3-4% 90 day mortality. RLL pneumonia - med surg admission as hemodynamically stable; no oxygen requirements - Vanco and Levaquin ( renally dosed) as patient has HAP (assisted) - CXR in am - blood cultures pending - O2 per nursing protocol Abdominal pain; secondary to PNA vs gastritis vs cirrhosis - no significant abn in LFT - may be secondary to the PNA - will trial ranitidine and if no improvement consider imaging of the abd; defer to am team - UA to r/o uti Cirrhosis/ ESLD - continue the patient's Rifaximin - continue lactulose 30 ml qid CKD III - as patient is currently not tolerating PO secondary to N&V will provide gentle hydration of NSS @ 75cc/h - BMP in am - Intake and output Oropharyngeal cancer - patient has a history of malnutrition secondary to this; continue impact tid - fentanyl and Percocet continue for pain control Bipolar disorder - continue Duloxetine and mirtazapine - Lorazepam prn for anxiety Anemia of chronic disease; thrombocytopenia - patient receives EPO three times a week - to be continued in house - monitor for signs of bleeding - patient has a history of transfusions however hgb is better than BL so will defer a type and cross at this time - CBC in am DVT Prophylaxis SCD as chemical prophylaxis contraindicated Resident Physician Supervision Note: I was present with Dr. Mathews during the history and exam. I discussed the case with the resident and agree with the findings and plan as documented in the note. Any exceptions or clarifications are listed here: 55 y/o M with a complex history including cirrhosis, oropharyngeal CA, CKD, Bipolar disease - presenting from an incarceration facility with weakness and a cough in addition to abdominal pain which may be chronic. CXR is consistent with a dense RLL infiltrate. OE Thin, ill-appearing middle aged male AAO x 3 S1,2 R Decreased air entry at R base Diffuse upper abdominal tenderness without guarding P: Treat for acute PNM May need further w/u for N/V and abdominal pain if no improvement is apparent with treatment of infection IVF provided due to N/V and CKD Status of CA is not clear Documented By: Reza Crook Level of Care Med/Surg Resuscitation Status FULL RESUSCITATION VTE Prophylaxis VTE Risk Assessment Done? Y/N: Yes Risk Level: Moderate Social Service Consult Lives in Care Home Note Total Time: Critical Care 30 - 74 minutes Additional Copies To Giovanny VILLA
[2016-10-18] MEDS ORDERED: LEVOFLOXACIN / D5W 750 MG in PREMIXED IN D5W 150 ML IV ONE (02:00)
[2016-10-18] MEDS ORDERED: VANCOMYCIN INJ 1,750 MG in SODIUM CHLORIDE 0.9% 500ML 500 ML IV SCH (02:00)
[2016-10-18 02:21] LABS: URINE APPEARANCE CLEAR (CLEAR); URINE BILIRUBIN NEG (NEG); URINE COLOR DK YELLOW; URINE NITRITE NEG (NEG); URINE SPECIFIC GRAVITY 1.023 (1.000-1.030); UROBILINOGEN NEG (NEG)
[2016-10-18 02:35] LABS: MANUAL MICROSCOPIC REQUIRED? NO; REVIEW REQ? NO
[2016-10-18] MEDS ORDERED: SODIUM CHLORIDE 0.9% 1000ML 1,000 ML IV SCH (04:00)
[2016-10-18] MEDS ORDERED: MAGNESIUM SULFATE 1GM / D5W 1 GM in PREMIXED IN D5W 100 ML IV STA (06:10)
[2016-10-18] MEDS ORDERED: VANCOMYCIN CONSULT ACTIVE PRN (06:30)
[2016-10-18] MEDS ORDERED: DEXAMETHASONE CONC SOLN 3.75 MG, NYSTATIN SUSP 30 ML, DiphenhydrAMINE HCL SYRUP 300 MG,... PO PRN ×5 (06:30)
[2016-10-18] MEDS ORDERED: BOOST PLUS VANILLA PO SCH ×6 (06:30→18:30)
--- NOTE | 2016-10-18 07:22 | DIAGNOSTIC IMAGING REPORT ---
CHEST ONE VIEW PORTABLE CLINICAL HISTORY: pnea pneumonia COMPARISON STUDY: 10/17/2016 FINDINGS: Unchanging right basilar infiltrate. New small parenchymal infiltrate left base. Upper lungs are clear. Diaphragms are smooth. IMPRESSION: Slightly progressive left basilar infiltrate. Stable right basilar infiltrate. The above report was generated using voice recognition software. It may contain grammatical, syntax or spelling errors. Electronically signed by: Jered Vazquez M.D. 10/18/2016 7:21 AM Dictated Date/Time: 10/18/2016 7:20 AM
[2016-10-18] MEDS ORDERED: RANITIDINE HCL 150 MG TAB PO ONE (07:57)
[2016-10-18] MEDS: CHECK FENTANYL PATCH PLACEMENT SCH ×2 (08:00→16:18)
[2016-10-18] MEDS ORDERED: FERROUS SULFATE 325 MG TAB PO SCH (08:00)
[2016-10-18] MEDS ORDERED: RIFAXIMIN TAB 550 MG TAB PO SCH (08:00)
[2016-10-18] MEDS ORDERED: DULOXETINE HCL 20 MG CAP PO SCH (08:00)
[2016-10-18] MEDS: LIDOCAINE HCL 2% VISC SOLN 20 ML UDC PO SCH ×2 (08:45→14:00)
[2016-10-18] MEDS: LACTULOSE SYRUP 20 GM/30 ML UDC PO SCH ×4 (08:46→17:00)
[2016-10-18] MEDS ORDERED: FENTANYL PATCH REMOVE & WASTE SCH (08:59)
[2016-10-18] MEDS ORDERED: FENTANYL 100 MCG/HR TDSY TD SCH (09:00)
[2016-10-18] MEDS ORDERED: NURSING VERBAL MED ORDER ONE (09:15)
--- NOTE | 2016-10-18 09:44 | Pharmacy Progress Note ---
Pharmacy Antibiotic Consult Date of Service: Oct 18, 2016. Pharmacy Dosing Scope Pharmacy is consulted to initiate vancomycin IV dosing therapy, order appropriate labs and adjust drug dose/frequency. Subjective The patient is a 55 year old male admitted on Oct 18, 2016 at 01:31. Objective Height (Feet): 6 Height (Inches): 0.00 Weight (Kilograms): 87.000 Lab Results (24hrs): Test 10/17/16 21:45 10/17/16 23:58 White Blood Count 11.52 K/uL (4.8-10.8) Red Blood Count 2.45 M/uL (4.7-6.1) Hemoglobin 8.3 g/dL (14.0-18.0) Hematocrit 23.6 % (42-52) Mean Corpuscular Volume 96.3 fL (80-100) Mean Corpuscular Hemoglobin 33.9 pg (25-34) Mean Corpuscular Hemoglobin Concent 35.2 g/dl (32-36) Platelet Count 32 K/uL (130-400) Mean Platelet Volume 10.3 fL (7.4-10.4) Neutrophils (%) (Auto) 92.7 % Lymphocytes (%) (Auto) 2.1 % Monocytes (%) (Auto) 4.8 % Eosinophils (%) (Auto) 0.0 % Basophils (%) (Auto) 0.1 % Neutrophils # (Auto) 10.68 K/uL (1.4-6.5) Lymphocytes # (Auto) 0.24 K/uL (1.2-3.4) Monocytes # (Auto) 0.55 K/uL (0.11-0.59) Eosinophils # (Auto) 0.00 K/uL (0-0.5) Basophils # (Auto) 0.01 K/uL (0-0.2) RDW Standard Deviation 74.2 fL (36.4-46.3) RDW Coefficient of Variation 22.5 % (11.5-14.5) Immature Granulocyte % (Auto) 0.3 % Immature Granulocyte # (Auto) 0.04 K/uL (0.00-0.02) Toxic Granulation 1+ Toxic Vacuolation 1+ Polychromasia 1+ Anisocytosis PRESENT Ovalocytes 1+ Prothrombin Time 13.4 SECONDS (9.0-12.0) Prothromb Time International Ratio 1.2 (0.9-1.1) Activated Partial Thromboplast Time 28.6 SECONDS (21.0-31.0) Partial Thromboplastin Ratio 1.1 Sodium Level 142 mmol/L (136-145) Potassium Level 4.0 mmol/L (3.5-5.1) Chloride Level 108 mmol/L (98-107) Carbon Dioxide Level 25 mmol/L (21-32) Anion Gap 9.0 mmol/L (3-11) Blood Urea Nitrogen 33 mg/dl (7-18) Creatinine 2.00 mg/dl (0.60-1.40) Est Creatinine Clear Calc Drug Dose 45.3 ml/min Estimated GFR () 42.0 Estimated GFR (Non- 36.2 BUN/Creatinine Ratio 16.3 (10-20) Random Glucose 103 mg/dl (70-99) Calcium Level 8.6 mg/dl (8.5-10.1) Magnesium Level 1.6 mg/dl (1.8-2.4) Total Bilirubin 2.3 mg/dl (0.2-1) Aspartate Amino Transf (AST/SGOT) 26 U/L (15-37) Alanine Aminotransferase (ALT/SGPT) 22 U/L (12-78) Alkaline Phosphatase 119 U/L (45-117) Total Protein 5.6 gm/dl (6.4-8.2) Albumin 2.7 gm/dl (3.4-5.0) Globulin 2.9 gm/dl (2.5-4.0) Albumin/Globulin Ratio 0.9 (0.9-2) Venous Blood pH 7.36 (7.36-7.41) Venous Blood Partial Pressure CO2 44 mmHg (38.0-50.0) Venous Blood Partial Pressure O2 38 mmHg Venous Blood HCO3 24 mmol/L Venous Blood Oxygen Saturation 66.7 % Venous Blood Base Excess -1.0 mEq/L Ammonia 34.0 umol/L (11-32) Micro Results: 10/17: Blood cultures pending Assessment & Plan Assessment: * 55 yo male with concern for RLL pneumonia * Patient has recent hospitalization (10/05) and is a prisoner * PMH: HepC, ESLD/cirrhosis, Bipolar, SI w/ attempt, thrombocytopenia, CKD III * Vancomycin loading dose 20 mg/kg given * SCr 10/17 2.0, CrCl 45.3 * T1/2 ~ 16 hrs * Goal trough level estimate: between 15-20 mcg/mL Plan: * Vancomycin 1250 mg q18H * Reassess in AM and order trough if no change in SCr Pharmacy will continue to follow and will adjust dose/frequency as necessary. Thank you
[2016-10-18] MEDS: ONDANSETRON INJ 2 MG/ML 2 ML VIAL IV PRN ×2 (12:11→20:07)
[2016-10-18] MEDS ORDERED: PANTOprazole INJ 80 MG in DEXTROSE 5% 100ML IV ONE (14:15)
--- NOTE | 2016-10-18 14:21 | DIAGNOSTIC IMAGING REPORT ---
KUB CLINICAL HISTORY: 55 years-old Male presenting with Abdominal pain, N/V. TECHNIQUE: Single supine view of the abdomen was obtained. COMPARISON: CT from 10/05/2016. FINDINGS: Limited segment of small bowel gaseous distention in the mid abdomen, the diameter measuring up to 4 cm although this may be affected by magnification. No evidence of free intraperitoneal gas, pneumatosis, or portal venous gas. Osseous structures normal. No calcifications project over the kidneys or along the courses of the ureters. Lung bases demonstrate minimal nodular opacities at the right lung base. IMPRESSION: 1. Limited segment of small bowel distention measuring up to 4 cm, although this may be affected by magnification. Small bowel obstruction is not excluded. Further evaluation with CT to be considered as clinically indicated. 2. Minimal bibasilar opacities, possibly atelectasis. Electronically signed by: Yao Mueller M.D. 10/18/2016 2:20 PM Dictated Date/Time: 10/18/2016 2:18 PM
[2016-10-18] MEDS: PANTOprazole INJ 40 MG in DEXTROSE 5% 100ML IV SCH ×2 (14:22→19:47)
[2016-10-18 14:33] LABS: HEMATOCRIT 22.1 % (42-52); MEAN CELL VOLUME 96.9 fL (80-100); MEAN CORPUSCULAR HEMOGLOBIN 35.1 pg (25-34); MEAN CORPUSCULAR HGB CONC 36.2 g/dl (32-36); RED BLOOD COUNT 2.28 M/uL (4.7-6.1); WHITE BLOOD COUNT 11.17 K/uL (4.8-10.8)
[2016-10-18 14:39] LABS: MEAN PLATELET VOLUME 8.8 fL (7.4-10.4); PLATELET COUNT 22 K/uL (130-400)
[2016-10-18 14:40] LABS: ANISOCYTOSIS PRESENT; BASO % 0.1 %; BASO ABS # 0.01 K/uL (0-0.2); COMPLETE YES; IG% 0.5 %; LYMPH % 4.4 %; LYMPH ABS # 0.49 K/uL (1.2-3.4); MONO % 3.8 %; NEUT % 91.2 %; PLT ESTIMATE SIGNIFIC DECREASED; TOXIC GRANULATION 1+
[2016-10-18] MEDS ORDERED: OPTIRAY 320 IV PRN (15:00)
[2016-10-18] MEDS ORDERED: MoRPHine SULFATE 2 MG/ML CARP IV PRN (15:15)
--- NOTE | 2016-10-18 15:29 | Progress Note ---
Progress Note Date of Service Oct 18, 2016. Progress Note Resident Physician Supervision Note: I was present with Dr. Hart during the history and exam. Dr. Hart and I recall to see the patient around 1:30 this afternoon after nursing reported the patient had a bout of emesis. Upon examination, the patient was sleeping. According to the [facility] guards were present, the patient had a large emesis subsequent to complaining of epigastric discomfort for several minutes. The patient actually had deferred breakfast and lunch due to an "upset stomach." Nursing reports that the emesis did not appear to contain blood nor have a black tarry-like appearance. Guards described as more like stool. A KUB was obtained which is just a small bowel obstruction Stat CBC is pending. PLAN #1 CT scan of the abdomen and pelvis #2 consult general surgery #3 and by mouth #4 we discussed placement of NG tube, although with the patient's low hemoglobin and platelet count and directed history of esophageal varices (no clear documentation of this but suspected aced on his liver disease), will hold off on NG tube placement. This was discussed with general surgery.
[2016-10-18] MEDS ORDERED: POTASSIUM CHLORIDE INJ 10 MEQ in SODIUM CHLORIDE 0.9% 1000ML 1,000 ML IV SCH (15:30)
--- NOTE | 2016-10-18 15:46 | Family Medicine Progress Note ---
Progress Note Date of Service Oct 18, 2016. Subjective Pt evaluation today including: conversation w/ patient, physical exam, lab review, conversation w/ senior talent management consultant Pain: abdominal pain Patient was seen at the bedside. He was complaining of abdominal pain, mostly on the epigastric area. Also feel nauseated and vomited this afternoon. Per nurse she didn't notice any blood, it was brown in color. Patient states that he has been having abdominal pain for past couple of days. Constitutional: No fever, No chills Respiratory: + cough, + sputum, No shortness of breath Cardiovascular: No chest pain Abdomen: + pain, + nausea, + vomiting, + constipation Skin: No rash Medications Current Inpatient Medications Medications (Trade) Dose Ordered Sig/Ivan Route Start Time Stop Time Status Last Admin Dose Admin Levofloxacin 750 mg/Prmx 150 ml @ 100 mls/hr Q48H IV 10/20/16 02:00 10/25/16 23:59 Vancomycin HCl 1250 mg/Sodium Chloride 275 ml @ 125 mls/hr Q18H IV 10/18/16 18:00 10/28/16 17:59 Al Hydrox/Mg Hydrox/Simethicone (Maalox Max Susp) 15 ml Q4H PRN PO 10/18/16 01:30 11/17/16 01:29 Magnesium Hydroxide (Milk Of Magnesia Susp) 30 ml Q6H PRN PO 10/18/16 01:30 11/17/16 01:29 Ondansetron HCl (Zofran Inj) 4 mg Q6H PRN IV 10/18/16 01:30 11/17/16 01:29 10/18/16 12:11 4 MG Zolpidem Tartrate (Ambien Tab) 5 mg HSZ PRN PO 10/18/16 01:30 11/17/16 01:29 Diphenhydramine HCl (Benadryl Cap) 50 mg TID PRN PO 10/18/16 01:45 11/17/16 01:44 Duloxetine HCl (Cymbalta Cap) 60 mg DAILY PO 10/18/16 08:00 11/17/16 08:59 10/18/16 08:43 60 MG Fentanyl (Duragesic Patch) 100 mcg Q3D@0900 TD 10/18/16 09:00 11/01/16 08:59 10/18/16 08:47 100 MCG Ferrous Sulfate (Feosol Tab) 325 mg BID PO 10/18/16 08:00 11/17/16 08:59 10/18/16 08:43 325 MG Folic Acid (Folvite Tab) 1 mg DAILY PO 10/18/16 08:00 11/17/16 08:59 10/18/16 08:44 1 MG Lactulose (Chronulac Syrup) 20 gm QID PO 10/18/16 08:00 11/17/16 08:59 10/18/16 08:46 20 GM Lidocaine HCl (Viscous Lidocaine 2% Soln) 10 ml TID PO 10/18/16 08:00 11/17/16 08:59 10/18/16 08:45 10 ML Lorazepam (Ativan Tab) 0.5 mg HS PO 10/18/16 21:00 11/17/16 20:59 Oxycodone/ Acetaminophen (Percocet 10-325MG Tab) 1 tab Q6 PRN PO 10/18/16 01:45 11/01/16 01:44 10/18/16 08:47 1 TAB Rifaximin (Xifaxan Tab) 550 mg BID PO 10/18/16 08:00 11/17/16 08:59 10/18/16 08:43 550 MG Mirtazapine (Remeron Tab) 45 mg HS PO 10/18/16 21:00 11/17/16 20:59 Omeprazole (Prilosec - Substitute) 20 mg BID PO 10/18/16 08:00 11/17/16 08:59 10/18/16 08:44 20 MG Dexamethasone/ Nystatin/ Diphenhydramine HCl/Sucrose/ Microcrystalline Cellulose/Barcode QID PRN PO 10/18/16 06:30 11/17/16 06:29 Vancomycin HCl (Consult) 1 ea UD PRN N/A 10/18/16 06:30 11/17/16 06:29 Miscellaneous (Fentanyl Patch Remove & Waste) 1 ea Q3D@0859 N/A 10/18/16 08:59 11/17/16 08:58 Miscellaneous Information (Check Fentanyl Patch Placement) 1 ea QS N/A 10/18/16 08:00 11/17/16 07:59 Ranitidine HCl (zANTac TAB) 150 mg QAM PO 10/19/16 08:00 11/18/16 07:59 Vancomycin HCl 1250 mg/Sodium Chloride 275 ml @ 125 mls/hr Q12 IV 10/18/16 21:00 10/25/16 20:59 Pantoprazole Sodium 40 mg/ Dextrose 100 ml @ 20 mls/hr Q5H IV 10/18/16 14:30 11/17/16 14:29 10/18/16 14:22 20 MLS/HR Enteral Nutritional Formula (Boost Plus Vanilla) 1 can TID@0630,1030,1830 PO 10/18/16 18:30 11/17/16 06:29 Ioversol (Optiray 320) 100 ml UD PRN IV 10/18/16 15:00 10/22/16 14:59 Morphine Sulfate (MoRPHine SULFATE INJ) 2 mg Q4H PRN IV 10/18/16 15:15 11/01/16 15:14 Potassium Chloride 10 meq/ Sodium Chloride 1,005 ml @ 125 mls/hr Q8H3M IV 10/18/16 15:30 11/17/16 15:29 Objective Vital Signs Date Time Temp Pulse Resp B/P (MAP) Pulse Ox O2 Delivery O2 Flow Rate FiO2 10/18/16 14:55 36.3 76 20 144/81 (102) 93 Room Air 10/18/16 11:33 36.9 81 18 137/76 (96) 91 Room Air 10/18/16 08:00 Room Air 10/18/16 07:51 36.8 77 20 151/78 (102) 95 Room Air 10/18/16 02:20 36.8 85 16 124/69 95 Room Air 10/18/16 01:05 91 10/17/16 23:53 84 20 140/77 94 Room Air 10/17/16 22:23 90 20 110/76 94 Room Air 10/17/16 21:48 94 Room Air 10/17/16 21:46 93 10/17/16 20:55 37.0 97 22 149/87 95 Room Air Physical Exam General Appearance: WD/WN, no apparent distress Neck: supple, trachea midline Respiratory/Chest: chest non-tender, lungs clear, normal breath sounds, no respiratory distress, no accessory muscle use Cardiovascular: regular rate, rhythm Abdomen: normal bowel sounds, soft, + tenderness (generalized tenderness, , mostly on Right and left UQ) Extremities: no pedal edema Neurologic/Psychiatric: alert Laboratory Results Results Past 24 Hours Test 10/17/16 21:45 10/17/16 23:57 10/17/16 23:58 10/18/16 14:01 Range/Units White Blood Count 11.52 11.17 4.8-10.8 K/uL Red Blood Count 2.45 2.28 4.7-6.1 M/uL Hemoglobin 8.3 8.0 14.0-18.0 g/dL Hematocrit 23.6 22.1 42-52 % Mean Corpuscular Volume 96.3 96.9 80-100 fL Mean Corpuscular Hemoglobin 33.9 35.1 25-34 pg Mean Corpuscular Hemoglobin Concent 35.2 36.2 32-36 g/dl Platelet Count 32 22 130-400 K/uL Mean Platelet Volume 10.3 8.8 7.4-10.4 fL Neutrophils (%) (Auto) 92.7 91.2 % Lymphocytes (%) (Auto) 2.1 4.4 % Monocytes (%) (Auto) 4.8 3.8 % Eosinophils (%) (Auto) 0.0 0.0 % Basophils (%) (Auto) 0.1 0.1 % Neutrophils # (Auto) 10.68 10.18 1.4-6.5 K/uL Lymphocytes # (Auto) 0.24 0.49 1.2-3.4 K/uL Monocytes # (Auto) 0.55 0.43 0.11-0.59 K/uL Eosinophils # (Auto) 0.00 0.00 0-0.5 K/uL Basophils # (Auto) 0.01 0.01 0-0.2 K/uL RDW Standard Deviation 74.2 76.8 36.4-46.3 fL RDW Coefficient of Variation 22.5 23.0 11.5-14.5 % Immature Granulocyte % (Auto) 0.3 0.5 % Immature Granulocyte # (Auto) 0.04 0.06 0.00-0.02 K/uL Toxic Granulation 1+ 1+ Toxic Vacuolation 1+ Polychromasia 1+ Anisocytosis PRESENT PRESENT Ovalocytes 1+ Prothrombin Time 13.4 9.0-12.0 SECONDS Prothromb Time International Ratio 1.2 0.9-1.1 Activated Partial Thromboplast Time 28.6 21.0-31.0 SECONDS Partial Thromboplastin Ratio 1.1 Sodium Level 142 136-145 mmol/L Potassium Level 4.0 3.5-5.1 mmol/L Chloride Level 108 98-107 mmol/L Carbon Dioxide Level 25 21-32 mmol/L Anion Gap 9.0 3-11 mmol/L Blood Urea Nitrogen 33 7-18 mg/dl Creatinine 2.00 0.60-1.40 mg/dl Est Creatinine Clear Calc Drug Dose 45.3 ml/min Estimated GFR () 42.0 Estimated GFR (Non- 36.2 BUN/Creatinine Ratio 16.3 10-20 Random Glucose 103 70-99 mg/dl Calcium Level 8.6 8.5-10.1 mg/dl Magnesium Level 1.6 1.8-2.4 mg/dl Total Bilirubin 2.3 0.2-1 mg/dl Aspartate Amino Transf (AST/SGOT) 26 15-37 U/L Alanine Aminotransferase (ALT/SGPT) 22 12-78 U/L Alkaline Phosphatase 119 45-117 U/L Total Protein 5.6 6.4-8.2 gm/dl Albumin 2.7 3.4-5.0 gm/dl Globulin 2.9 2.5-4.0 gm/dl Albumin/Globulin Ratio 0.9 0.9-2 Bedside Troponin I < 0.030 0-0.045 ng/ml Venous Blood pH 7.36 7.36-7.41 Venous Blood Partial Pressure CO2 44 38.0-50.0 mmHg Venous Blood Partial Pressure O2 38 mmHg Venous Blood HCO3 24 mmol/L Venous Blood Oxygen Saturation 66.7 % Venous Blood Base Excess -1.0 mEq/L Ammonia 34.0 11-32 umol/L Platelet Estimate SIGNIFIC DECREASED Microbiology Results 10/17/16 Blood Culture, Received Pending 10/17/16 Blood Culture, Received Pending Assessment and Plan This is a 55 yo m with a significant past medical history of hep C, ESLD/ cirrhosis, CKDIII, recent subarachnoid hemorrhage, anemia of chronic disease, bipolar disorder presenting to us with a right sided pneumonia, abdominal pain and nausea and vomiting. PSI is 126 so appropriate for inpatient management. MELD is 18 reflecting a 3-4% 90 day mortality. Patient was nauseated and had one episode of vomiting this afternoon. KUB was performed this afternoon showed small bowel obstruction. Patient was made NPO, IVF, CT of abdomen. His plt is low, 22 but will hold on to transfusion given no active bleeding. *Small bowel obstruction - KUB showed small bowel obstruction - Patient is NPO - Continue with NSS +10KCL 125mls/hr - CT of abdomen is ordered with oral and IV contrast, spoke with radiology given his CKD and they recommended half of normal dose of IV - result pending - Consulted surgery; Spoke with Dr. Gutiérrez and he recommended not to place NGT given possible varices also low plt, risk of bleeding. For now will continue with fluid. Further management upon result of CT. - Will continue to observe * RLL pneumonia - Continue Vanco and Levaquin ( renally dosed) as patient has HAP (jail) - Repeated CXR showed slightly progressive left basilar infiltrate. Stable right basilar infiltrate. - blood cultures pending - O2 per nursing protocol * Cirrhosis/ ESLD - continue the patient's Rifaximin - continue lactulose 30 ml qid * CKD III - His baseline creat is between 2-3; he is at his baseline - started him on NSS @125mls/hr given SBO; will continue to monitor his creat - BMP in am - Intake and output * Oropharyngeal cancer - patient has a history of malnutrition secondary to this; continue impact tid - fentanyl and Percocet continue for pain control * Bipolar disorder - continue Duloxetine and mirtazapine - Lorazepam prn for anxiety * Anemia of chronic disease; thrombocytopenia - patient receives EPO three times a week - to be continued in house - monitor for signs of bleeding - patient has a history of transfusions however hgb is better than BL so will defer a type and cross at this time - CBC in am * DVT Prophylaxis - SCD as chemical prophylaxis contraindicated Resident Physician Supervision Note: I was present with Dr. Hart during the history and exam. I discussed the case with the resident and agree with the findings and plan as documented in the note. Any exceptions or clarifications are listed here: Please see my attending note of the same date. Documented By: Kalin Del Rio
--- NOTE | 2016-10-18 16:14 | SURGICAL CONSULTATION ---
DATE OF CONSULTATION: 10/18/2016 REASON FOR CONSULTATION: Small bowel obstruction. HISTORY OF PRESENT ILLNESS: The patient is a 55-year-old male admitted to the hospital through the Emergency Room with cough, abdominal pain, general weakness, nausea and vomiting, evidence of right lower lobe pneumonia and evidence on a KUB with mildly dilated small bowel with possible small-bowel obstruction. His other history is significant for hepatic failure, chronic renal insufficiency, thrombocytopenia, ascites, hepatitis C. He recently on October 05 was transferred from our ER for a subarachnoid hemorrhage after falling, most likely secondary to his thrombocytopenia, prior to that he was in the ER with heme positive stool and anemia and pancytopenia. 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 Currently, his H&H is 8 and 22 respectively with a platelet count of 22,000. Protime is 13.4, BUN and creatinine 33 and 2.0. His KUB shows a 4 cm loop of small bowel. PAST MEDICAL HISTORY: Please see HPI, cirrhosis, nasopharyngeal cancer, end-stage liver disease, and bipolar disorder. FAMILY AND SOCIAL HISTORY: Significant for a current everyday smoker. ALLERGIES: He has no known allergies. MEDICATIONS: Takes multiple home medications. REVIEW OF SYSTEMS: He has no fever, chills, eye pain, hearing loss, wheezing, chest pain. He does have some nausea and vomiting and some mild abdominal pain, no diarrhea. No hematuria, dysuria. No depressive symptoms. No rash. PHYSICAL EXAMINATION: GENERAL: He is a chronically ill appearing male who is somewhat cachectic in his appearance. He is responsive. HEENT: His sclerae are nonicteric. NECK: Supple. LUNGS: Shows some mild decreased breath sounds right side. HEART: Regular rate and rhythm. ABDOMEN: Very mildly distended. He has some diffuse bruising of unknown etiology. He does have some mild abdominal discomfort and does have some bowel sounds. EXTREMITIES: Do show some edema. ASSESSMENT AND PLAN: A 55-year-old male with end-stage liver disease and chronic renal insufficiency with ascites, who has some mildly dilated small bowel, possible partial small-bowel obstruction. I would be very hesitant to place an NG tube in this setting with his platelet count 22,000. We are going to obtain a CAT scan and limit his oral intake. It appears that the patient becomes more distended, I do feel it may be more prudent to transfer him to a tertiary care center where they have aggressive gastroenterology and interventional radiology as well as a blood bank to support his blood product needs. The patient obviously has gradual decline and I do not feel any aggressive surgical intervention will improve his current situation.
[2016-10-18] MEDS ORDERED: VANCOMYCIN INJ 1,250 MG in SODIUM CHLORIDE 0.9% 250ML 250 ML IV SCH ×2 (18:00→21:00)
--- NOTE | 2016-10-18 18:32 | DIAGNOSTIC IMAGING REPORT ---
CT SCAN OF THE ABDOMEN AND PELVIS WITHOUT IV CONTRAST CLINICAL HISTORY: Generalized abdominal pain. COMPARISON STUDY: Abdominal CT dated 10/05/2016. TECHNIQUE: CT scan of the abdomen and pelvis is performed from the lung bases to the proximal femora. Images are reviewed in the axial, sagittal, and coronal planes. IV contrast was not administered for this examination as per the referring clinician. Note that the examination was performed and significantly suboptimal fashion without oral and IV contrast. Automated dose control exposure was utilized. A dose lowering technique was utilized adhering to the principles of ALARA. CT DOSE: 341.04 mGy.cm FINDINGS: Lung bases: The heart is enlarged and without pericardial effusion. The coronary arteries are densely calcified. There are small left and trace right pleural effusions. There is patchy airspace consolidation at both lung bases, right significantly greater than left. This has significantly worsened from 10/05/2016. Liver: The unenhanced liver is cirrhotic in morphology and heterogeneous in attenuation. There is hypertrophy of the left lobe and caudate as well as nodularity of the surface contour. There is no intrahepatic biliary ductal dilatation. Gallbladder: The gallbladder is mildly distended. Calcified gallstones are identified. Spleen: The spleen is enlarged measuring 15.6 cm in length. There are large perisplenic collateral vessels. A splenorenal shunt is identified. Pancreas: The unenhanced pancreas is atrophic. Scattered parenchymal calcifications are identified and suggest chronic pancreatitis. Adrenal glands: Unremarkable. Kidneys: The unenhanced kidneys are atrophic and without hydronephrosis. There are no renal calculi identified. There is no evidence of contour deforming renal mass lesion. Abdominal vasculature: The abdominal aorta is normal in course and caliber noting moderate atherosclerotic calcification. Bowel: The small bowel loops are distended and fluid-filled measuring up to 4 cm. There is a small bowel containing umbilical hernia in the ventral pelvis seen on axial image #299. The distal small bowel and colon are decompressed and this is consistent with a small bowel obstruction. No pneumatosis intestinalis or portal venous gas is seen. There is moderate colonic diverticulosis without clear CT evidence of acute diverticulitis. The appendix is not clearly identified. Peritoneum: There is no intraperitoneal free air. There is diffuse mesenteric edema. There is a moderate volume of abdominal ascites, which has increased from 10/05/2016. Lymphadenopathy: None. Pelvic viscera: The bladder, prostate, and seminal vesicles are grossly normal as visualized but not well assessed. Skeletal structures: The skeletal structures are osteopenic. Moderate lumbosacral spondylosis is observed. No lytic or blastic lesions are seen. Soft tissues: There is anasarca of the body wall. IMPRESSION: 1. Significantly suboptimal examination without oral and IV contrast. 2. Airspace consolidation and pleural effusion is seen at both lung bases. This has worsened from 10/05/2016 and is typical in appearance for pneumonia/aspiration pneumonitis. Clinical correlation will be required. 3. Findings are consistent with a small bowel obstruction secondary to an incarcerated small bowel containing umbilical hernia. 4. Cirrhotic liver morphology with evidence of portal hypertension including splenomegaly, a splenorenal shunt, and abdominal ascites. The volume of ascitic fluid has increased from 10/05/2016 5. Cholelithiasis. 6. Cardiomegaly. 7. Findings suggest chronic pancreatitis. 8. Colonic diverticulosis without CT evidence of acute diverticulitis. 9. There is anasarca of the body wall. 10. Additional findings as above. Electronically signed by: Ramírez Forte M.D. 10/18/2016 6:30 PM Dictated Date/Time: 10/18/2016 6:18 PM
--- NOTE | 2016-10-18 19:29 | Surgery Progress Note ---
Surgery Progress Note Date of Service Oct 18, 2016. Subjective CT- shows sbo w/ umbilical hernia- likely cause of obstruction Objective Vital Signs: Date Time Temp Pulse Resp B/P (MAP) Pulse Ox O2 Delivery O2 Flow Rate FiO2 10/18/16 17:08 93 Room Air 10/18/16 17:06 36.5 82 18 140/81 (100) 90 Room Air 10/18/16 16:29 36.3 76 20 93 10/18/16 16:00 36.3 76 20 144/81 (102) 93 Room Air 10/18/16 14:55 36.3 76 20 144/81 (102) 93 Room Air 10/18/16 11:33 36.9 81 18 137/76 (96) 91 Room Air 10/18/16 08:00 Room Air 10/18/16 07:51 36.8 77 20 151/78 (102) 95 Room Air 10/18/16 02:20 36.8 85 16 124/69 95 Room Air 10/18/16 01:05 91 10/17/16 23:53 84 20 140/77 94 Room Air 10/17/16 22:23 90 20 110/76 94 Room Air 10/17/16 21:48 94 Room Air 10/17/16 21:46 93 10/17/16 20:55 37.0 97 22 149/87 95 Room Air Laboratory Results: Results Past 24 Hours Test 10/17/16 21:45 10/17/16 23:57 10/17/16 23:58 10/18/16 14:01 Range/Units White Blood Count 11.52 11.17 4.8-10.8 K/uL Red Blood Count 2.45 2.28 4.7-6.1 M/uL Hemoglobin 8.3 8.0 14.0-18.0 g/dL Hematocrit 23.6 22.1 42-52 % Mean Corpuscular Volume 96.3 96.9 80-100 fL Mean Corpuscular Hemoglobin 33.9 35.1 25-34 pg Mean Corpuscular Hemoglobin Concent 35.2 36.2 32-36 g/dl Platelet Count 32 22 130-400 K/uL Mean Platelet Volume 10.3 8.8 7.4-10.4 fL Neutrophils (%) (Auto) 92.7 91.2 % Lymphocytes (%) (Auto) 2.1 4.4 % Monocytes (%) (Auto) 4.8 3.8 % Eosinophils (%) (Auto) 0.0 0.0 % Basophils (%) (Auto) 0.1 0.1 % Neutrophils # (Auto) 10.68 10.18 1.4-6.5 K/uL Lymphocytes # (Auto) 0.24 0.49 1.2-3.4 K/uL Monocytes # (Auto) 0.55 0.43 0.11-0.59 K/uL Eosinophils # (Auto) 0.00 0.00 0-0.5 K/uL Basophils # (Auto) 0.01 0.01 0-0.2 K/uL RDW Standard Deviation 74.2 76.8 36.4-46.3 fL RDW Coefficient of Variation 22.5 23.0 11.5-14.5 % Immature Granulocyte % (Auto) 0.3 0.5 % Immature Granulocyte # (Auto) 0.04 0.06 0.00-0.02 K/uL Toxic Granulation 1+ 1+ Toxic Vacuolation 1+ Polychromasia 1+ Anisocytosis PRESENT PRESENT Ovalocytes 1+ Prothrombin Time 13.4 9.0-12.0 SECONDS Prothromb Time International Ratio 1.2 0.9-1.1 Activated Partial Thromboplast Time 28.6 21.0-31.0 SECONDS Partial Thromboplastin Ratio 1.1 Sodium Level 142 136-145 mmol/L Potassium Level 4.0 3.5-5.1 mmol/L Chloride Level 108 98-107 mmol/L Carbon Dioxide Level 25 21-32 mmol/L Anion Gap 9.0 3-11 mmol/L Blood Urea Nitrogen 33 7-18 mg/dl Creatinine 2.00 0.60-1.40 mg/dl Est Creatinine Clear Calc Drug Dose 45.3 ml/min Estimated GFR () 42.0 Estimated GFR (Non- 36.2 BUN/Creatinine Ratio 16.3 10-20 Random Glucose 103 70-99 mg/dl Calcium Level 8.6 8.5-10.1 mg/dl Magnesium Level 1.6 1.8-2.4 mg/dl Total Bilirubin 2.3 0.2-1 mg/dl Aspartate Amino Transf (AST/SGOT) 26 15-37 U/L Alanine Aminotransferase (ALT/SGPT) 22 12-78 U/L Alkaline Phosphatase 119 45-117 U/L Total Protein 5.6 6.4-8.2 gm/dl Albumin 2.7 3.4-5.0 gm/dl Globulin 2.9 2.5-4.0 gm/dl Albumin/Globulin Ratio 0.9 0.9-2 Bedside Troponin I < 0.030 0-0.045 ng/ml Venous Blood pH 7.36 7.36-7.41 Venous Blood Partial Pressure CO2 44 38.0-50.0 mmHg Venous Blood Partial Pressure O2 38 mmHg Venous Blood HCO3 24 mmol/L Venous Blood Oxygen Saturation 66.7 % Venous Blood Base Excess -1.0 mEq/L Ammonia 34.0 11-32 umol/L Platelet Estimate SIGNIFIC DECREASED Microbiology Results 10/17/16 Blood Culture, Received Pending 10/17/16 Blood Culture, Received Pending Assessment & Plan 10/18/16- pt will likely need surgery and is at extreme risk of hemorrhage. He will require significant plt and blood transfusion- I have discussed with surgeon at [facility]- we plan to transfer him and he will need to be stabilized prior to considering surgery.
--- NOTE | 2016-10-18 19:32 | Discharge Instructions ---
Discharge Instructions Date of Service Oct 18, 2016. Admission Reason for Admission: Abdominal Pain Upon further studies, it it was identified that she would incarcerated inguinal hernia causing a small bowel obstruction. This, combined with her low platelet counts, necessitated transfer to another facility better equipped for your surgery and potential consultations. Discharge Discharge Diagnosis / Problem: incarcerated in the local hernia with small bowel obstruction Discharge Goals Goal(s): Prevent Disease Progression Activity Recommendations Activity Limitations: as noted below Per discharge from [facility] in [place] . Current Hospital Diet Patient's current hospital diet: Renal Diet, AHA Diet (Heart Healthy) Discharge Diet Recommended Diet: N/A (per discharge instructions at [facility]) Procedures Procedures Performed: None Pending Studies Studies pending at discharge: no Medical Emergencies . Who to Call and When: Medical Emergencies: If at any time you feel your situation is an emergency, please call 911 immediately. . Non-Emergent Contact Non-Emergency issues call your: Primary Care Provider Per discharge instructions at [facility] . . "Provider Documentation" section prepared by Kalin Del Rio. . VTE Core Measure Inpt VTE Proph given/why not?: Contraindicated (thrombocytopenia)
--- NOTE | 2016-10-18 19:39 | Discharge Summary ---
Discharge Summary Date of Service Oct 18, 2016. Discharge Summary Admission Date: Oct 18, 2016 at 01:31 Discharge Date: Oct 18, 2016 Discharge Disposition: Acute care facility Principal Diagnosis: Incarcerated umbilical hernia with resulting small bowel obstruction Pneumonia Secondary Diagnoses/Problems: Thrombocytopenia Anemia Procedures: None Vaccinations: None Consultations: General surgery, Dr. Gutiérrez Pending Studies/Follow-Up: Non- Medication Reconciliation Continued Medications: Diphenhydramine Hcl (Benadryl) 25 Mg Cap 50 MG PO TID PRN for Itching, CAP Duloxetine HCl (Cymbalta) 20 Mg Cap 60 MG PO DAILY Emollient Ointment (Aquaphor) 1 Gm Oint 1 APPLN TOP TID Enteral Nutrition Formula (Ensure Plus Vanilla) 1 Can Liqd 1 CAN PO TID [id number] Epoetin Kirill (Epogen) 10,000 Unit/Ml Inj 5000 UNIT INJ 3XWK inject every MON/WED/FRI Fentanyl (Fentanyl) 100 Mcg Tdsy 100 MCG TOP Q3D APPLY 100MCG PATCH DAILY EVERY THREE DAYS Ferrous Sulfate (Ferrous Sulfate) 325 Mg Tab 325 MG PO BID Folic Acid (Folvite) 1 Mg Tab 1 MG PO DAILY, TAB Lactulose (Chronulac) 10 Gm/15 Ml Syrp 30 ML PO QID Lidocaine Hcl (Mouth-Throat) (Lidocaine Viscous) 2 % Brandie 10 ML TOP TID TAKE 10ML TOPICALLY THREE TIMES DAILY TO SWISH AND GARGLE PRIOR TO MEALS Lorazepam (Ativan) 0.5 Mg Tab 0.5 MG PO HS, TAB Mirtazapine (Mirtazapine) 45 Mg Tab 45 MG PO HS, 2 Refills Neomycin-Bacitracin Zn-Polymyx (Triple Antibiotic) 1 Oin Oin 1 APPLN TOP BID APPLY OINTMENT TOPICALLY TWICE DAILY TO INSIDE OF NOSTRILS Omeprazole (Omeprazole) 20 Mg Tab 20 MG PO BID, 3 Refills Ondansetron Hcl (Zofran) 4 Mg Tab 4 MG PO TID PRN for Nausea, TAB Oxycodone/Acetaminophen 10MG/325MG (Percocet 10MG/325MG) Tab 3 TABS PO Q6 PRN for Pain, TAB Rifaximin (Xifaxan) 550 Mg Tab 550 MG PO BID, TAB [Magic Mouth Wash] () 10 ML PO QID PRN for UNDECIDED SWISH AND SWALLOW Admission Information HPI (per Admitting provider): This is a 55 yo m with a history of hepatitis C 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 He notes he has a cough which is non productive and no hemoptysis. He also notes a upper abdominal pain that extends from the epigastric region to both upper left and right quadrants and worsens with movement. He has had intermittent N&V as well. He denies any chest pain or SOB however notes chronic right knee pain which he states is from " [employer]". He denies any change in BM. He notes he has had a very poor appetite. He was recently seen in the ED for an intracranial hemorrhage on October in the setting of thrombocytopenia. He was transferred to [facility] for further management. He currently denies any headache or blurry vision. He is slightly confused and somnolent but arousable during the interview however patient is oriented to self, place and time. He was unaware of the recent intracranial bleed and would mumble statements regarding how he only had a few months to stay in the jail and did not know why he was being punished. Physical Exam (per Admitting): General Appearance: no apparent distress, + pertinent finding (somnolent during interview but arousable) Head: normocephalic, atraumatic Eyes: normal inspection ENT: + pertinent finding (adentulous) Neck: supple Respiratory/Chest: no respiratory distress, no accessory muscle use, + pertinent finding (decreased to right base) Cardiovascular: regular rate, rhythm, no murmur, normal peripheral pulses Abdomen/GI: normal bowel sounds, + tenderness (to palpation of the upper abd ) Back: normal inspection, no CVA tenderness Extremities/Musculoskelatal: normal inspection, no calf tenderness, + pedal edema (+2 bilat, BL) Neurologic/Psych: oriented x 3, + pertinent finding (flat affect) Skin: warm/dry, no rash, + jaundice (mild), + pertinent finding (multiple tattoos noted, ecchymosis on left eye, left shoulder and right UE) Lymphatic: no adenopathy Hospital Course The patient was admitted to the general medical floor. Antibiotics were started for his pneumonia. On the morning after his admission, the patient had development of increased abdominal pain with nausea and eventual emesis. A KUB was done which suggested a partial small bowel obstruction. A CT scan was recommended for confirmation. The patient was made nothing by mouth. General surgery was consult did. An NG tube was deferred given the patient's history of thrombocytopenia and suspected history of esophageal varices. CT scan demonstrated an incarcerated umbilical hernia and confirmed the findings with small bowel obstruction. Based on the patient's thrombocytopenia, general surgery as if he should be transferred to a facility with more resources available for surgery and likely complications given his anemia, thrombocytopenia, and advanced liver disease. Gen. surgery made arrangements for aeromedical transferred to [facility] in [place]. I was able to obtain consent for transfer from the patient and coordinate logistics of the transfer. Total time spent on discharge = This includes examination of the patient, discharge planning, medication reconciliation, and communication with other providers. Discharge Instructions Per discharge instructions at [facility].
[2016-10-18] MEDS ORDERED: MIRTAZAPINE TAB 15 MG TAB PO SCH (21:00)
[2016-10-18] MEDS ORDERED: LORAZEPAM 0.5 MG TAB PO SCH (21:00)
[2016-10-19] MEDS ORDERED: RANITIDINE HCL 150 MG TAB PO SCH (08:00)
[2016-10-20] MEDS ORDERED: LEVOFLOXACIN / D5W 750 MG in PREMIXED IN D5W 150 ML IV SCH (02:00)
[2016-10-20] MEDS ORDERED: VANCOMYCIN TROUGH SCH (15:30)
== END 2016-10-18 21:00 | disposition short-term general hospital (02) | DRG 393 ==
LOC: EDBD 20:45 → C.EDB 20:48 → C.MS4W 10-18 01:31 → EDBEDREQ 10-18 01:39 → ENRESERV 10-18 01:52 → C.MS2W 10-18 15:02 → C.2T 10-18 15:10 → ENRESERV 10-18 16:03
PROVIDERS: ADMIT Internal Medicine; ATTEND Internal Medicine
DX: K42.0 Umbilical hernia with obstruction, without gangrene (principal); J18.1 Lobar pneumonia, unspecified organism; E46 Unspecified protein-calorie malnutrition; K74.60 Unspecified cirrhosis of liver; B19.20 Unspecified viral hepatitis C without hepatic coma; N18.3 Chronic kidney disease, stage 3 (moderate); C10.9 Malignant neoplasm of oropharynx, unspecified; F31.9 Bipolar disorder, unspecified; D63.8 Anemia in other chronic diseases classified elsewhere; D69.6 Thrombocytopenia, unspecified; F17.200 Nicotine dependence, unspecified, uncomplicated; Z86.14 Personal history of Methicillin resistant Staphylococcus aureus infection; Z79.2 Long term (current) use of antibiotics; Z79.891 Long term (current) use of opiate analgesic; Z79.899 Other long term (current) drug therapy

== ENCOUNTER 2016-11-21 12:17 | Emergency (ER) | payer OTHER ==
[~2016-11-21] VITALS: Ht 182.9 cm; Wt 63.0 kg
[~2016-11-21 12:17] MED LIST changes: -DULO60CA44 PO; -EPOE10003 SC; -EpINEphrine HCL INJ 1 MG/ML 5ML SYRINGE ONE; -FERR1TAB13 PO; -LACTATED RINGER'S 1000ML 1,000 ML IV SCH; -LIDO2SOL19 MT; -MIRT45TA PO; -NSPO TOP; -NUTR-706 PO; -PRLSR20 PO
[2016-11-21 12:28] VITALS: Ht 182.9 cm; Wt 63.0 kg
--- NOTE | 2016-11-21 12:36 | EMERGENCY ROOM VISIT NOTE ---
History Report prepared by Nasir: Lalit Chopra Under the Supervision of: Dr. Ramírez Eason M.D. First contact with patient: 12:28 Chief Complaint: EDEMA TO EXTREMITY Stated Complaint: LOWER EXTREMITY EDEMA History of Present Illness The patient is a 56 year old male with throat cancer who presents to the Emergency Room with complaints of persistent lower extremity swelling that started 7 days ago. Per the nursing staff, the patient was at the surgery center for a biopsy of his neck, but was noticed to have 4+ lower extremity pitting edema, so he was sent here for evaluation. The patient's rectal temperature was noted to be 92 degrees here. The patient denies any shortness of breath, chills, vomiting, urinary symptoms, or bowel issues. He adds that he is able to eat but it is hard to swallow due to his cancer. He follows-up with Dr. Laura of Otolaryngology. He notes no history of lower extremity swelling. Source of History: patient, nursing staff Onset: 7 days ago Position: leg (bilateral) Quality: other (4+ pitting edema) Timing: other (persistent) Associated Symptoms: No chills, No SOB, No vomiting, No urinary symptoms Note: Associated symptoms: Rectal temperature of 92 degrees here. Denies bowel issues. Review of Systems See HPI for pertinent positives & negatives. A total of 10 systems reviewed and were otherwise negative. Past Medical & Surgical Medical Problems: (1) Abdominal pain (2) Acute kidney failure (3) acute on chronic renal failure, syncope (4) Altered mental status (5) Altered mental status (6) Bipolar disorder (7) Cirrhosis (8) Mouth cancer (9) Oral cancer (10) Tobacco abuse Social History Problems: (1) Alcohol abuse Family History Patient reports no known family medical history. Social History Smoking Status: Current Every Day Smoker Alcohol Use: none Drug Use: other Marital Status: single Housing Status: other Occupation Status: other Current/Historical Medications Scheduled *Neomycin/Polymyx/Bacitr (Triple Antibiotic), 1 APPLN TOP BID Duloxetine Hcl (Cymbalta), 60 MG PO DAILY Enteral Nutrition Formula (Ensure), 1 CAN PO TID Epoetin Kirill (Epogen), 5,000 UNITS SC 3XWK Fentanyl (Fentanyl), 2 PATCH TOP Q3DAYS Ferrous Sulfate (Kp Ferrous Sulfate), 325 MG PO BID Folic Acid (Folvite), 1 MG PO DAILY Lactulose (Chronulac), 30 ML PO QID Lidocaine Hcl (Mouth-Throat) (Lidocaine Viscous), 10 ML MT TID Mirtazapine (Remeron), 45 MG PO HS Omeprazole (Prilosec), 20 MG PO BID Allergies Coded Allergies: No Known Allergies (Unverified , 11/06/16) Physical Exam Vital Signs Date Time Temp Pulse Resp B/P (MAP) Pulse Ox O2 Delivery O2 Flow Rate FiO2 11/21/16 19:58 34.3 79 8 114/71 95 11/21/16 19:06 79 11/21/16 19:01 114/71 11/21/16 18:46 120/73 11/21/16 18:36 84 8 11/21/16 18:31 118/72 11/21/16 18:16 115/71 11/21/16 18:06 82 6 11/21/16 18:01 119/74 11/21/16 17:46 128/74 11/21/16 17:36 91 17 11/21/16 17:31 132/83 11/21/16 17:16 108/63 11/21/16 17:06 80 6 95 11/21/16 17:01 112/64 11/21/16 17:00 79 96 11/21/16 16:46 123/74 11/21/16 16:31 121/77 11/21/16 16:30 84 8 97 11/21/16 16:16 104/64 11/21/16 16:01 111/68 11/21/16 16:00 78 12 96 11/21/16 15:46 122/72 11/21/16 15:31 126/77 11/21/16 15:30 76 11/21/16 15:16 119/73 11/21/16 15:02 77 10 112/73 95 Room Air 11/21/16 15:01 112/73 11/21/16 15:00 73 94 11/21/16 14:38 34.3 11/21/16 14:23 69 12 104/67 93 Room Air 11/21/16 13:35 65 12 105/65 98 11/21/16 12:28 33.3 65 20 145/79 100 Room Air 11/21/16 12:24 63 Physical Exam GENERAL: Patient is in no acute distress. HEENT: Old contusion to left forehead and around left eye. Mucous membranes are moist. No icterus. NECK: No stridor, no adenopathy, no meningismus, trachea is midline. LUNGS: Clear to auscultation bilaterally, no wheeze, no rhonchi, breath sounds equal. HEART: Without murmurs gallops or rubs, regular rate and rhythm. ABDOMEN: Soft, nontender, bowel sounds positive, no hernias, no peritonitis. EXTREMITIES: Significant bilateral pitting edema. No evidence for cellulitis. No evidence for fracture. No upper extremity edema. NEUROLOGIC: Oriented x 3, no acute motor or sensory deficits, no focal weakness. SKIN: No rash, no jaundice, no diaphoresis. Medical Decision & Procedures ER Provider Diagnostic Interpretation: Radiology results as stated below per my review and radiologist interpretation: CT SCAN OF THE ABDOMEN AND PELVIS WITHOUT CONTRAST CLINICAL HISTORY: Generalized abdominal pain. Possible mass. Elevated creatinine. Lower extremity edema. COMPARISON STUDY: 10/18/2016 TECHNIQUE: CT scan of the abdomen and pelvis was performed from the lung bases to the proximal femurs. Images are reviewed in the axial, sagittal, and coronal planes. IV contrast was not administered for this examination. A dose lowering technique was utilized adhering to the principles of ALARA. CT DOSE: 280.65 mGy.cm FINDINGS: Lower chest: There are small bilateral pleural effusions. There are bibasal airspace opacities, suspicious for a pneumonia. Liver: The liver has a cirrhotic morphology. No focal masses are visualized on this noncontrast study. Gallbladder: The gallbladder is distended and contains several calculi. Spleen: The spleen is enlarged measuring 15.4 cm. Pancreas: There is borderline ductal dilatation most pronounced in the Neck. No focal masses are visualized however the study is quite limited given the lack of intravenous contrast. There is apparent atrophy. Adrenal glands: 01 Kidneys: The unenhanced kidneys are normal in size without hydronephrosis. There is no contour deforming renal mass lesion. No renal calculi are identified. Bowel: There are no transition zones indicate bowel obstruction. Peritoneum: There is persistent ascites. Vasculature: The abdominal aorta is normal in course and caliber. Adenopathy: None. Pelvic viscera: The bladder, and pelvic viscera are unremarkable. Skeletal structures: There are endplate erosive changes involving the L2-3 and L3-4 levels. There is subtle diffuse skeletal sclerosis. IMPRESSION: 1. Difficult study to interpret due to the lack of intravenous and oral contrast 2. Persistent bilateral pleural effusions and bilateral lower lobe airspace opacity suspicious for pneumonia 3. Cirrhotic liver morphology. Splenomegaly. Abdominal ascites. 4. Cholelithiasis 5. Mild pancreatic ductal dilatation at the level of the pancreatic neck 6. No evidence of bowel obstruction. No evidence of free air 7. Body wall anasarca 8. Endplate erosive changes at the L2-3 and L3-4 level. Subtle diffuse skeletal sclerosis. Electronically signed by: Yousuf Alvarado M.D. 11/21/2016 3:23 PM Dictated Date/Time: 11/21/2016 3:16 PM CHEST ONE VIEW PORTABLE CLINICAL HISTORY: Altered mental status. Weakness. COMPARISON STUDY: Chest radiograph October 18, 2016. FINDINGS: There is no pneumothorax. Bibasilar opacities have improved since exam of October 18, 2016. Nipple shadow projects over the right lung. There are old bilateral rib fractures. Cardiomediastinal silhouette is stable. IMPRESSION: Interval improvement in bibasilar opacities since exam of October 18, 2016. Electronically signed by: Mateo Chen M.D. 11/21/2016 1:14 PM Dictated Date/Time: 11/21/2016 1:12 PM ULTRASOUND VENOUS DOPPLER LWR EXT BILA CLINICAL HISTORY: Leg edema COMPARISON STUDY: No previous studies for comparison. FINDINGS: Real-time and color flow Doppler imaging were performed. Flow was seen within the femoral, popliteal and calf veins with no intraluminal thrombus demonstrated. The saphenous vein is patent. There is moderate diffuse superficial edema. IMPRESSION: No evidence of lower extremity DVT. Electronically signed by: Yousuf Alvarado M.D. 11/21/2016 4:46 PM Dictated Date/Time: 11/21/2016 4:46 PM Laboratory Results 11/21/16 13:04 Red Blood Count 2.03, Mean Corpuscular Volume 108.4, Mean Corpuscular Hemoglobin 38.4, Mean Corpuscular Hemoglobin Concent 35.5, Neutrophils (%) (Auto ) 93.2, Lymphocytes (%) (Auto) 3.3, Monocytes (%) (Auto) 2.9, Eosinophils (%) ( Auto) 0.0, Basophils (%) (Auto) 0.0, Neutrophils # (Auto) 4.80, Lymphocytes # ( Auto) 0.17, Monocytes # (Auto) 0.15, Eosinophils # (Auto) 0.00, Basophils # ( Auto) 0.00 11/21/16 13:04 Test 11/21/16 13:04 11/21/16 13:24 11/21/16 16:49 White Blood Count 5.15 K/uL (4.8-10.8) Red Blood Count 2.03 M/uL (4.7-6.1) Hemoglobin 7.8 g/dL (14.0-18.0) Hematocrit 22.0 % (42-52) Mean Corpuscular Volume 108.4 fL (80-100) Mean Corpuscular Hemoglobin 38.4 pg (25-34) Mean Corpuscular Hemoglobin Concent 35.5 g/dl (32-36) Platelet Count 16 K/uL (130-400) Neutrophils (%) (Auto) 93.2 % Lymphocytes (%) (Auto) 3.3 % Monocytes (%) (Auto) 2.9 % Eosinophils (%) (Auto) 0.0 % Basophils (%) (Auto) 0.0 % Neutrophils # (Auto) 4.80 K/uL (1.4-6.5) Lymphocytes # (Auto) 0.17 K/uL (1.2-3.4) Monocytes # (Auto) 0.15 K/uL (0.11-0.59) Eosinophils # (Auto) 0.00 K/uL (0-0.5) Basophils # (Auto) 0.00 K/uL (0-0.2) RDW Standard Deviation 77.0 fL (36.4-46.3) RDW Coefficient of Variation 19.5 % (11.5-14.5) Immature Granulocyte % (Auto) 0.6 % Immature Granulocyte # (Auto) 0.03 K/uL (0.00-0.02) Platelet Estimate SIGNIFIC DECREASED Polychromasia 1+ Anisocytosis PRESENT Acanthocytes 1+ Prothrombin Time 15.5 SECONDS (9.0-12.0) Prothromb Time International Ratio 1.4 (0.9-1.1) Activated Partial Thromboplast Time 33.5 SECONDS (21.0-31.0) Partial Thromboplastin Ratio 1.3 Anion Gap 8.0 mmol/L (3-11) Est Creatinine Clear Calc Drug Dose 33.0 ml/min Estimated GFR () 37.2 Estimated GFR (Non- 32.1 BUN/Creatinine Ratio 48.6 (10-20) Calcium Level 8.9 mg/dl (8.5-10.1) Magnesium Level 2.5 mg/dl (1.8-2.4) Total Bilirubin 1.8 mg/dl (0.2-1) Aspartate Amino Transf (AST/SGOT) 61 U/L (15-37) Alanine Aminotransferase (ALT/SGPT) 43 U/L (12-78) Alkaline Phosphatase 178 U/L (45-117) Total Creatine Kinase 84 U/L (39-308) Troponin I < 0.015 ng/ml (0-0.045) Pro-B-Type Natriuretic Peptide 74013 pg/ml (0-900) Total Protein 6.1 gm/dl (6.4-8.2) Albumin 3.4 gm/dl (3.4-5.0) Globulin 2.7 gm/dl (2.5-4.0) Albumin/Globulin Ratio 1.2 (0.9-2) Thyroid Stimulating Hormone (TSH) 6.830 uIu/ml (0.300-4.500) Free Thyroxine 0.93 ng/dl (0.80-1.60) Lactic Acid Level 1.5 mmol/L (0.4-2.0) Bedside Glucose 79 mg/dl (70-99) Laboratory results reviewed by me. Medications Administered Medications (Trade) Dose Ordered Sig/Ivan Route Start Time Stop Time Status Last Admin Dose Admin Dextrose (Dextrose 50% 50ML Syringe) 25 ml NOW ONCE IV 11/21/16 14:15 11/21/16 14:16 DC 11/21/16 14:23 25 ML Dextrose/Sodium Chloride 1,000 ml @ 150 mls/hr [id number] STAT IV 11/21/16 15:36 11/21/16 20:36 DC 11/21/16 15:36 150 MLS/HR Dextrose (Dextrose 50% 50ML Syringe) 25 ml ONE ONCE IV 11/21/16 15:20 11/21/16 16:41 DC 11/21/16 16:40 25 ML ECG Indication: other (lower extremity edema) Rate (beats per minute): 66 Rhythm: normal sinus Findings: no acute ischemic change, no ectopy ED Course 1230: The patient was evaluated in room C6. A complete history and physical exam was performed. 1403: I reevaluated and updated the patient. 1415: Ordered Dextrose 50% 50 ML Syringe 25 ml IV. 1536: Ordered Dextrose/Sodium Chloride 1000 ml @ 150 mls/hr IV. 1604: I spoke with Dr. Hodgson from the residential - he says that if the patient decides to go home without treatment, then he can be discharged. The patient makes his own choices. 1652: I reevaluated the patient and he says that he will not stay. The patient verbally expressed understanding and agreement of the treatment plan. The patient will be discharged. Medical Decision Differential diagnosis includes but is not limited to DVT, abdominal or pelvic mass, electrolyte imbalance, renal failure, thyroid disorder, anemia, infection or sepsis. There is no leukocytosis. The patient's hemoglobin and platelet count are quite low, they have been quite low in the past. Renal panel testing shows renal insufficiency and a mildly elevated potassium. Glucose was quite low. There were some liver enzyme elevations. Lactic acid level is not elevated making severe sepsis less likely. Thyroid testing was acceptable. Chest film shows some patchy congestion but this appears improved compared to previous films. No pneumothorax. BNP was quite elevated consistent with fluid overload. INR was mildly elevated at 1.4. Blood cultures are pending. Bilateral lower extremity ultrasound does not show DVT. Abdominal and pelvis CT shows no obvious large mass that would explain his lymphedema. Some more chronic findings were seen. EKG shows a normal sinus rhythm, no acute ischemia. Cardiac enzyme testing times one is not consistent with acute cardiac injury. The patient was given IV glucose. He required a glucose infusion during his stay. He was able to eat though during his stay. I spoke to the patient about staying in the hospital, he has refused. I spoke to the residential physician. The patient is able to make his own decisions. He has a history of refusing hospitalization. He understands that he could , he understands all his abnormalities and findings. He has signed out AGAINST MEDICAL ADVICE and is being transferred back to the residential. He may return at any point for further care. Of note, the patient was hypothermic by our testing. During his hospital stay, the kori hugger was applied. His temperature was on the rise with the use of the kori hugger. Medication Reconcilliation Current Medication List: was personally reviewed by me Blood Pressure Screening Patient's blood pressure: Elevated blood pressure Blood pressure disposition: Elevated BP felt to be situational Consults Time Called: 1600 Consulting Physician: Dr. Hodgson from the residential Returned Call: [address] Hodgson from the residential - he says that if the patient decides to go home without treatment, then he can be discharged. The patient makes his own choices. Impression Primary Impression: Hypoglycemia Additional Impressions: Throat cancer Pedal edema Hypothermia Anemia Thrombocytopenia Scribe Attestation The scribe's documentation has been prepared under my direction and personally reviewed by me in its entirety. I confirm that the note above accurately reflects all work, treatment, procedures, and medical decision making performed by me. Departure Information Dispostion Against Medical Advice Referrals Giovanny VILLA (PCP) Patient Instructions My [facility] Additional Instructions return to the ER if you change your mind about admission you have a low body temperature, your blood sugar is low, you are dehydrated, and your blood counts are all low as we discussed, you could if you do not stay in the hospital stay in the [facility] Problem Qualifiers Additional Impressions: Hypothermia Encounter type: subsequent encounter Qualified Codes: T68.XXXD - Hypothermia , subsequent encounter
--- NOTE | 2016-11-21 13:15 | DIAGNOSTIC IMAGING REPORT ---
CHEST ONE VIEW PORTABLE CLINICAL HISTORY: Altered mental status. Weakness. COMPARISON STUDY: Chest radiograph October 18, 2016. FINDINGS: There is no pneumothorax. Bibasilar opacities have improved since exam of October 18, 2016. Nipple shadow projects over the right lung. There are old bilateral rib fractures. Cardiomediastinal silhouette is stable. IMPRESSION: Interval improvement in bibasilar opacities since exam of October 18, 2016. Electronically signed by: Mateo Chen M.D. 11/21/2016 1:14 PM Dictated Date/Time: 11/21/2016 1:12 PM
[2016-11-21 13:55] LABS: MEAN CELL VOLUME 108.4 fL (80-100); MEAN CORPUSCULAR HEMOGLOBIN 38.4 pg (25-34); MEAN CORPUSCULAR HGB CONC 35.5 g/dl (32-36); RED BLOOD COUNT 2.03 M/uL (4.7-6.1); WHITE BLOOD COUNT 5.15 K/uL (4.8-10.8)
[2016-11-21 13:59] LABS: INR 1.4 (0.9-1.1); PARTIAL THROMBOPLASTIN RATIO 1.3; PROTHROMBIN TIME (PATIENT) 15.5 SECONDS (9.0-12.0)
[2016-11-21] MEDS ORDERED: NSPO TOP (13:59)
[2016-11-21] MEDS ORDERED: DULO60CA44 PO (13:59)
[2016-11-21] MEDS ORDERED: DRGTP100 TOP (13:59)
[2016-11-21] MEDS ORDERED: FERR1TAB13 PO (13:59)
[2016-11-21] MEDS ORDERED: NUTR-706 PO (13:59)
[2016-11-21] MEDS ORDERED: EPOE10003 SC (13:59)
[2016-11-21] MEDS ORDERED: MIRT45TA PO (13:59)
[2016-11-21] MEDS ORDERED: PRLSR20 PO (13:59)
[2016-11-21] MEDS ORDERED: FOLI1TAB7 PO (13:59)
[2016-11-21] MEDS ORDERED: LIDO2SOL19 MT (13:59)
[2016-11-21] MEDS ORDERED: LACT10SO17 PO (13:59)
[2016-11-21 14:01] LABS: ALT/SGPT 43 U/L (12-78); AST/SGOT 61 U/L (15-37); BLOOD UREA NITROGEN 107 mg/dl (7-18); BUN/CREATININE RATIO 48.6 (10-20); CALCIUM 8.9 mg/dl (8.5-10.1); CARBON DIOXIDE 28 mmol/L (21-32); CHLORIDE 106 mmol/L (98-107); GLUCOSE 43 mg/dl (70-99); MAGNESIUM 2.5 mg/dl (1.8-2.4); POTASSIUM 5.5 mmol/L (3.5-5.1); SODIUM 142 mmol/L (136-145)
[2016-11-21 14:09] LABS: ALB/GLOB RATIO 1.2 (0.9-2); ALKALINE PHOSPHATASE 178 U/L (45-117)
[2016-11-21 14:11] LABS: ACANTHOCYTES 1+; ANISOCYTOSIS PRESENT; COMPLETE YES; IG% 0.6 %; LYMPH % 3.3 %; LYMPH ABS # 0.17 K/uL (1.2-3.4); MONO % 2.9 %; NEUT % 93.2 %; PLATELET COUNT 16 K/uL (130-400); PLT ESTIMATE SIGNIFIC DECREASED; POLYCHROMASIA 1+
[2016-11-21] MEDS ORDERED: DEXTROSE 50% 50 ML SYR IV ONE ×2 (14:15→15:20)
--- NOTE | 2016-11-21 15:25 | DIAGNOSTIC IMAGING REPORT ---
CT SCAN OF THE ABDOMEN AND PELVIS WITHOUT CONTRAST CLINICAL HISTORY: Generalized abdominal pain. Possible mass. Elevated creatinine. Lower extremity edema. COMPARISON STUDY: 10/18/2016 TECHNIQUE: CT scan of the abdomen and pelvis was performed from the lung bases to the proximal femurs. Images are reviewed in the axial, sagittal, and coronal planes. IV contrast was not administered for this examination. A dose lowering technique was utilized adhering to the principles of ALARA. CT DOSE: 280.65 mGy.cm FINDINGS: Lower chest: There are small bilateral pleural effusions. There are bibasal airspace opacities, suspicious for a pneumonia. Liver: The liver has a cirrhotic morphology. No focal masses are visualized on this noncontrast study. Gallbladder: The gallbladder is distended and contains several calculi. Spleen: The spleen is enlarged measuring 15.4 cm. Pancreas: There is borderline ductal dilatation most pronounced in the Neck. No focal masses are visualized however the study is quite limited given the lack of intravenous contrast. There is apparent atrophy. Adrenal glands: 01 Kidneys: The unenhanced kidneys are normal in size without hydronephrosis. There is no contour deforming renal mass lesion. No renal calculi are identified. Bowel: There are no transition zones indicate bowel obstruction. Peritoneum: There is persistent ascites. Vasculature: The abdominal aorta is normal in course and caliber. Adenopathy: None. Pelvic viscera: The bladder, and pelvic viscera are unremarkable. Skeletal structures: There are endplate erosive changes involving the L2-3 and L3-4 levels. There is subtle diffuse skeletal sclerosis. IMPRESSION: 1. Difficult study to interpret due to the lack of intravenous and oral contrast 2. Persistent bilateral pleural effusions and bilateral lower lobe airspace opacity suspicious for pneumonia 3. Cirrhotic liver morphology. Splenomegaly. Abdominal ascites. 4. Cholelithiasis 5. Mild pancreatic ductal dilatation at the level of the pancreatic neck 6. No evidence of bowel obstruction. No evidence of free air 7. Body wall anasarca 8. Endplate erosive changes at the L2-3 and L3-4 level. Subtle diffuse skeletal sclerosis. Electronically signed by: Yousuf Alvarado M.D. 11/21/2016 3:23 PM Dictated Date/Time: 11/21/2016 3:16 PM
[2016-11-21] MEDS ORDERED: D5W AND 1/2NSS 1,000 ML IV STA (15:36)
--- NOTE | 2016-11-21 16:48 | DIAGNOSTIC IMAGING REPORT ---
ULTRASOUND VENOUS DOPPLER LWR EXT BILA CLINICAL HISTORY: Leg edema COMPARISON STUDY: No previous studies for comparison. FINDINGS: Real-time and color flow Doppler imaging were performed. Flow was seen within the femoral, popliteal and calf veins with no intraluminal thrombus demonstrated. The saphenous vein is patent. There is moderate diffuse superficial edema. IMPRESSION: No evidence of lower extremity DVT. Electronically signed by: Yousuf Alvarado M.D. 11/21/2016 4:46 PM Dictated Date/Time: 11/21/2016 4:46 PM
[2016-11-21 19:58] VITALS: BP 114/71; PULSE 79; TEMP 34.3; O2SAT 95
== END 2016-11-21 19:08 | disposition left against medical advice (07) ==
LOC: EDBD 12:17 → C.EDC 12:18
DX: E16.2 Hypoglycemia, unspecified (principal); C06.9 Malignant neoplasm of mouth, unspecified; R60.0 Localized edema; R68.0 Hypothermia, not associated with low environmental temperature; D64.9 Anemia, unspecified; D69.6 Thrombocytopenia, unspecified; N18.9 Chronic kidney disease, unspecified; F31.9 Bipolar disorder, unspecified; K74.60 Unspecified cirrhosis of liver; F17.200 Nicotine dependence, unspecified, uncomplicated; F10.10 Alcohol abuse, uncomplicated

== ENCOUNTER → 2016-11-21 | Day surgery (SDC) | payer OTHER ==
[2016-11-06 09:53] VITALS: Ht 182.9 cm; Wt 70.5 kg
--- NOTE | 2016-11-20 16:22 | History and Physical: Surg Cnt ---
History & Physical Date Nov 20, 2016. 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 Past Medical/Surgical History Medical Problems: (1) Abdominal pain (2) Acute kidney failure (3) acute on chronic renal failure, syncope (4) Altered mental status (5) Altered mental status (6) Bipolar disorder (7) Cirrhosis (8) Mouth cancer (9) Oral cancer (10) Tobacco abuse Social History Problems: (1) Alcohol abuse Additional History Hepatic Disease: Yes Endocrine Disorder: No Kidney Disease: Yes Hypertension: No Heart Disease: No Bleeding Tendencies: No Allergies Coded Allergies: No Known Allergies (Unverified , 11/06/16) Home Medications Scheduled Duloxetine HCl (Cymbalta), 60 MG PO DAILY Enteral Nutrition Formula (Ensure Plus Vanilla), 1 CAN PO TID Epoetin Kirill (Epogen), 5,000 UNIT INJ 3XWK Fentanyl (Fentanyl), 100 MCG TOP Q3D Ferrous Sulfate (Ferrous Sulfate), 325 MG PO BID Folic Acid (Folvite), 1 MG PO QAM Lactulose (Chronulac), 30 ML PO QID Lidocaine Hcl (Mouth-Throat) (Lidocaine Viscous), 10 ML TOP TID Mirtazapine (Mirtazapine), 45 MG PO HS Neomycin-Bacitracin Zn-Polymyx (Triple Antibiotic), 1 APPLN TOP BID Omeprazole (Omeprazole), 20 MG PO BID Scheduled PRN Diphenhydramine Hcl (Benadryl), 50 MG PO TID PRN for Itching Physical Examination Skin: warm/dry, no rash Eyes: normal inspection, EOMI, sclerae normal ENT: + pertinent finding (regrowth of right tonsillar Ca) Head: normocephalic, atraumatic Neck: + pertinent finding (right adenopathy) Respiratory/Chest: lungs clear, normal breath sounds, no respiratory distress Cardiovascular: regular rate, rhythm, no edema, no murmur Abdomen / GI: normal bowel sounds, non tender Back: normal inspection Extremities: normal inspection, normal range of motion Diagnosis recurrent Ca. right tonsil Plan of Treatment direct laryngoscopy and biopsies
[~2016-11-21] VITALS: Ht 182.9 cm; Wt 70.5 kg
[~2016-11-21] MED LIST changes: +DULO60CA44 PO; +EPOE10003 INJ; +EPOE10003 SC; +EpINEphrine HCL INJ 1 MG/ML 5ML SYRINGE ONE; +FRRS300 PO; +LACTATED RINGER'S 1000ML 1,000 ML IV SCH; +LIDO2SOL19 MT; -LORA-741 PO; -MAGIC MOUTH WASH PO; -MIRT30TA2 PO; +MIRT45TA PO; +MIRT45TA3 PO; -MORP30TA PO; +NSPO TOP; +NUTR-706 PO; -OXYC-106 PO; +PRLSR20 PO
--- NOTE | 2016-11-21 12:00 | Anesthesiology Progress Note ---
Anesthesia Progress Note Date of Service Nov 21, 2016. Progress Notes Patient arrived today for laryngoscopy and biopsy at the outpatient surgical center. On arrival patient was noted to have severe bilateral lower extremity pitting edema. Per patient and guard, this is new onset within the last 8 days and there is no prior history of LE edema. Heart had RRR without murmurs and lungs had bilateral crackles at the bases. Patient's vitals were appropriate and he remained hemodynamically stable while at the surgical center, but due to the severity of the edema and the new onset in combination with his extensive past medical history, the decision was made to transfer to the emergency department for more extensive evaluation prior to planned GA and above procedure with Dr. Laura.
[2016-11-21 12:28] VITALS: BP 129/83; PULSE 62; TEMP 35.8; O2SAT 100
== END | disposition home or self-care (01) ==
LOC: X.SURG 10:53
PROVIDERS: ATTEND Otolaryngology
DX: C02.9 Malignant neoplasm of tongue, unspecified (principal); F31.9 Bipolar disorder, unspecified; F17.200 Nicotine dependence, unspecified, uncomplicated